=== PATIENT | female | born 1950 | race Caucasian/White ===

== ENCOUNTER 2020-01-02 21:24 | Emergency (ER) | payer MEDICARE, OTHER, SELFPAY ==
[2020-01-02 21:31] VITALS: BP 149/104; PULSE 102; RESP 18; TEMP 36; O2SAT 97
[2020-01-02 21:36] VITALS: PULSE 105
--- NOTE | 2020-01-02 21:40 | ECG_ITS ---
Measurements Intervals [place] Rate: 101 P: 63 LA: 184 QRS: 23 QRSD: 77 T: 20 QT: 321 QTc: 416 Interpretive Statements SINUS TACHYCARDIA LOW QRS VOLTAGE IN PRECORDIAL LEADS BASELINE ARTIFACT- I, III, AVL BORDERLINE ECG Electronically Signed On 01-03-2020 6:54:52 CDT by Dieter Hernández D.O.
[2020-01-02 21:48] LABS: Basophils Percent Auto 0.3 % (0.2-1.2); Eosinophils Absolute Auto 0.2 K/mm3 (0-0.3); Eosinophils Percent Auto 1.4 % (0-4.4); Hematocrit 41.7 % (37.0-47.0); Hemoglobin 14.2 g/dL (12.0-15.0); Immature Granulocyte Absolute 0.04 K/mm3 (0.00-0.031); Immature Granulocyte Percent A 0.4 % (0-0.5); Lymphocytes Absolute Auto 3.07 K/mm3 (0.9-3.2); Lymphocytes Percent Auto 29.4 % (18.3-44.2); Mean Corpuscular HGB Conc 34.1 g/dl (32-36); Mean Corpuscular Hemoglobin 28.1 pg (26-34); Mean Corpuscular Volume 82.6 fl (80-100); Mean Platelet Volume 8.9 fl (7.4-10.4); Monocytes Absolute Auto 1.2 K/mm3 (0.1-0.6); Monocytes Percent Auto 11.5 % (2.6-8.5); Platelet Count Result 460 k/mm3 (150-375); Red Blood Count 5.05 M/mm3 (4.2-5.4); Red Cell Distribution Width 14.1 % (11.5-14.5); White Blood Count 10.4 K/mm3 (4.5-10.0)
[2020-01-02 22:00] LABS: Add Urine Microscopic? YES; Appearance Urine Cloudy (Clear); Bacteria Urine 2+ /hpf; Bilirubin Urine Negative (Negative); Blood Urine Negative (Negative); Color Urine Yellow (Yellow); Glucose Urine UA Negative (Negative); Ketones Urine Negative (Negative); Leukocyte Esterase Ur 2+ LEU/UL (Negative); Mucus Urine Moderate /lpf; Nitrate Urine Negative (Negative); Protein Urine Negative (Negative); Specific Grav Ur 1.021 (1.001-1.035); Squamous Epithelial Cell Urine Many /hpf (Few); Urobilinogen Urine Negative mg/dL (<2.0); WBC Urine 31-50 /hpf
[2020-01-02 22:00] LABS: Alanine Aminotransferase 20 U/L (4-35); Albumin Level 4.1 g/dL (3.5-5.1); Alkaline Phosphatase 84 U/L (38-126); Anion Gap 11 mmol/L (8-16); Aspartate Amino Transferase 25 U/L (14-36); Bilirubin,Total 0.4 mg/dL (0.2-1.3); Blood Urea Nitrogen 11 mg/dL (7-17); Carbon Dioxide 27 mmol/L (22-30); Chloride 89 mmol/L (98-107); Estimated Glomerular Filt Rate > 60; Glucose 129 mg/dL (65-105); Potassium 4.3 mmol/L (3.4-5.0); Sodium 127 mmol/L (137-145)
[2020-01-02] MEDS: SODIUM CHLORIDE 0.9% IV 1,000 ML 999 ML IV CONT (22:18)
[2020-01-02 22:46] VITALS: BP 140/88; PULSE 97; RESP 20; O2SAT 98
--- NOTE | 2020-01-02 22:58 | ED.GENADULT ---
HPI - General Adult General Chief complaint: Unspecified Stated complaint: agitation, possible uti Time Seen by Provider: 01/02/20 21:35 History of Present Illness HPI narrative: Patient is a 6-year-old female who presents the ER with some agitation. reports patient has been more irritable over the last few days and has been drinking more water and peeing much more frequently. Referred here by PCP to evaluate for electrolyte disturbance and UTI. Patient is oriented x3 but is slow to answer some of the questions. She has no complaints of fevers or chills or sweats. She has not fallen or injured herself. Related Data Home Medications Medication Instructions Recorded Confirmed alprazolam 1 mg tablet 1 mg PO BID 10/21/19 aspirin 81 mg tablet,delayed 81 mg PO DAILY 10/21/19 release buspirone 10 mg tablet 10 mg PO TID 10/21/19 calcium carbonate 500 mg calcium 500 mg PO DAILY 10/21/19 (1,250 mg) tablet cholecalciferol (vitamin D3) 25 25 mcg PO DAILY 10/21/19 mcg (1,000 unit) capsule desvenlafaxine succinate 50 mg 50 mg PO DAILY 10/21/19 tablet,extended release 24 hr zzkrbzwu-gzwqduq-cgpq-lutein mcg PO 10/21/19 Allergies Allergy/AdvReac Type Severity Reaction Status Date / Time adhesive Allergy Unknown Rash Verified 01/02/20 21:35 morphine Allergy Unknown Swelling Verified 01/02/20 21:35 procaine Allergy Unknown Agitated Verified 01/02/20 21:35 PROCAINE HCL Allergy Unknown Agitated Uncoded 01/02/20 21:35 Review of Systems Review of Systems: All systems reviewed & are unremarkable except as noted in HPI and below Constitutional: Constitutional: Denies chills, Denies fever(s) and Denies weakness ENT: Denies nasal congestion and Denies sore throat Gastrointestinal: Gastrointestinal: Denies abdominal pain, Denies nausea and Denies vomiting Genitourinary: Genitourinary: Reports nocturia, Denies dysuria and Denies flank pain PMFSH Past Medical History Medical History (Updated 01/03/20 @ 00:21 by Gene Toussaint MD) Essential (primary) hypertension Gastro-esophageal reflux disease without esophagitis Generalized anxiety disorder Hyperlipidemia Hyponatremia Major depressive disorder, single episode, unspecified Post-polio syndrome Surgical History Surgical History (Updated 01/02/20 @ 23:10 by Gene Toussaint MD) History of hip surgery Family History Family History (Updated 11/23/15 @ 23:19 by DOCTOR UNKNOWN) Father Hypertension Family history of diabetes mellitus in first degree relative Family history of lung cancer Mother Family history of thyroid disease Social History Social History Smoking status: Former smoker Smoking end date: 04/27/03 Alcohol intake: never Exam Narrative: Exam Narrative: GENERAL: Well-appearing, well-nourished, and in no acute distress. HEAD: Normocephalic, atraumatic. CHEST: Clear to auscultation. No respiratory distress. HEART: Regular rate and rhythm. Normal peripheral pulses. ABDOMEN: Soft, nontender, nondistended. EXTREMITIES: Normal range of motion. No edema. SKIN: Warm, dry, no rash. NEURO: Alert and oriented x3. Course Course Emergency Course: Patient and spouse informed of results. Both are comfortable with discharge home. Patient has been hydrated and received ceftriaxone IV. Vital Signs Vital signs: Vital Signs Temperature 96.8 F L 01/02/20 21:31 Pulse Rate 102 H 01/02/20 21:31 Respiratory Rate 18 01/02/20 21:31 Blood Pressure 149/104 H 01/02/20 21:31 Pulse Oximetry 97 01/02/20 21:31 Temperature 96.8 F L 01/02/20 21:31 Pulse Rate 104 H 01/02/20 23:47 Respiratory Rate 18 01/02/20 23:47 Blood Pressure 136/95 H 01/03/20 00:17 Pulse Oximetry 94 01/02/20 23:47 Medical Decision Making Vital Signs Vital Signs: Vital Signs Temperature 96.8 F L 01/02/20 21:31 Pulse Rate 102 H 01/02/20 21:31 Respiratory Rate 18 01/02/20 21:31 Blood Pressure 149/104 H 01/02/20 21:31
--- NOTE | 2020-01-02 23:30 | PC.NURSE ---
rn report given to sanjay
[2020-01-02 23:47] VITALS: BP 181/97; PULSE 104; RESP 18; O2SAT 94
--- NOTE | 2020-01-02 23:47 | PC.NURSE ---
report received at this time. pt sitting on stretcher with at bedside. pt denies any needs/concerns. pt remains hooked up to monitor, will continue to monitor pt for baseline status changes.
[2020-01-03 00:17] VITALS: BP 136/95
== END 2020-01-03 00:47 | disposition home or self-care (01) ==
PROVIDERS: Emergency Provider Emergency Medicine; PCP Family Medicine
DX: N39.0 Urinary tract infection, site not specified (principal); I10 Essential (primary) hypertension; K21.9 Gastro-esophageal reflux disease without esophagitis; F41.9 Anxiety disorder, unspecified; E78.5 Hyperlipidemia, unspecified
CPT/HCPCS: 36415; 80053; 81001; 85025; 87086; 87088; 93005; 96361; 96365; 99284; J0696; J7030

== ENCOUNTER 2020-01-07 19:16 | Inpatient (IN) | payer MEDICARE, OTHER, SELFPAY ==
--- NOTE | ~2020-01-07 | MR_ITS ---
EXAMINATION: MR abdomen wo con DATE: 01/10/2020 12:16 INDICATION: Renal masses on prior CT TECHNIQUE: Magnetic resonance imaging (MRI) of the abdomen was performed without intravenous contrast . Sequences included coronal T2-weighted SS-FSE, coronal and axial FS 2D-FIESTA, axial STIR FSE, axi al T2-weighted SS-FSE, axial T2-weighted FS SS-FSE, axial diffusion-weighted SE, axial dual-echo T1-w eighted FSPGR, and axial and coronal T1-weighted LAVA. Postcontrast axial T1-weighted LAVA images wer e obtained in a time course. Postcontrast coronal T1-weighted LAVA images were obtained. COMPARISON: CT dated 01/07/2020 FINDINGS: Arch size is normal. No pericardial or pleural effusion. Partially visualized ascending thoracic aort ic aneurysm which measures up to 4.2 cm in maximal diameter. Large hiatal hernia containing the major ity of the stomach as well as the body and tail of the pancreas. Liver, gallbladder, spleen, pancreas and bilateral adrenal glands are normal. There is a 1.9 cm T2 hyperintense lesion at the lower pole of the left kidney corresponding to the le abram of concern on prior CT. Lesion appears relatively homogeneous suggesting fluid with a subtle thi n linear internal septation evident on the coronal images. No evident solid soft tissue component eugenie reciated. There is subtle 4 mm diameter ring of decreased signal intensity at the upper pole of the r ight kidney which appears associated with a small region of cortical scarring and corresponding to th e rim calcified lesion on prior CT. No discernible enhancement associated with the lesion on the subs equent pre and postcontrast CT. There is an additional 1.4 cm lesion with equivocal enhancement on th e subsequent pre and postcontrast CT at the interpolar region of the right kidney which is nearly ind iscernible on the MRI images, evident only has subtle region of restricted diffusion. There are few a dditional subcentimeter homogeneous T2 hyperintense cysts in the bilateral kidneys. A portion of the transverse colon extends into a small supraumbilical ventral hernia. No dilation of the more proximal bowel to suggest obstruction. A few scattered colonic diverticula without adjacent inflammatory change to suggest diverticulitis. No pathologically enlarged abdominal lymphadenopathy. Severe lumbar spondylosis. IMPRESSION: 1. 1.9 cm T2 hyperintense lesion at the lower pole of the left kidney with thin internal septation co nsistent with a Bosni[place] 2 renal cyst. 2. Indeterminate 1.2 cm peripherally calcified lesion at the upper pole of the right kidney evaluatio n of which is mixed both by the relatively small size of the lesion as well as the absence of intrave nous contrast. On the pre and postcontrast CT performed immediately following the MRI the lesion demo nstrates relatively low-attenuation unclear whether fluid or potentially fat with no evident internal enhancement which favors a benign lesion either periphery calcified cyst or heterotopic ossification likely related to the associated scarring which could be sequela of prior infection or infarction. 3. Nearly indiscernible 1.4 cm lesion at the interpolar region of the right kidney that are evident w ith equivocal enhancement on subsequent pre and postcontrast CT which remains indeterminate for compl ex cyst versus enhancing solid neoplasm. 4. Large sliding-type hiatal hernia containing nearly the entire stomach as well as the body and tail of the pancreas. 5. Segment of nonobstructed transverse colon extending to a small supraumbilical ventral hernia. 6. Diverticulosis. Reviewed, dictated and finalized at location A. IMPRESSION: 1. 1.9 cm T2 hyperintense lesion at the lower pole of the left kidney with thin internal septation consistent with a [place]
--- NOTE | ~2020-01-07 | XR_ITS ---
XR chest 2V 01/07/2020 21:46 Indication: Cough and shortness of breath Procedure: AP and lateral views of the chest Comparison: Comparison to multiple prior studies sequentially, with oldest reviewed study dated 10/18. Findings: There is a hiatal hernia. Cardiomegaly. No focal air space disease, pulmonary edema, pleura l effusion or suspected pneumothorax. Bibasilar atelectasis. Impression: 1: No acute cardiopulmonary disease. 2: Large hiatal hernia. Reviewed, dictated and finalized at location A. Impression: 1: No acute cardiopulmonary disease. 2: Large hiatal hernia.
--- NOTE | ~2020-01-07 | CT_ITS ---
EXAMINATION: CT abdomen pelvis wo/w con DATE: 01/10/2020 12:27 INDICATION: Bilateral renal masses TECHNIQUE: Computed tomography (CT) of the abdomen and pelvis was performed without and with 100 mL O mnipaque-350 intravenous contrast. Automated exposure control and iterative reconstruction technique were employed. The dose-length product was 2430.64 mGy-cm. COMPARISON: CT dated 01/07/2020 and MRI dated 01/10/2020 FINDINGS: Atelectasis/scarring at the lung bases. Heart size is normal. No pericardial effusion. Large sliding- type hiatal hernia containing the entire stomach as well as the body and tail of the otherwise normal pancreas. Gallbladder, liver, spleen and bilateral adrenal glands are normal. Short segment of nonob structed transverse colon extends into a small supraumbilical ventral hernia. Moderate scattered colo shay diverticulosis with sigmoid predominance without adjacent inflammatory change to suggest divertic ulitis. Bladder is normal. The uterus is not identified and has likely been surgically resected. Unch anged 1.5 cm left adnexal cyst. Right adnexa is unremarkable. No free intraperitoneal gas or fluid. N o pathologically enlarged abdominal or pelvic lymphadenopathy. Severe lumbar spondylosis. Bipolar typ e left hip hemiarthroplasty. Chronic defect along the anterolateral left iliac wing. Prominent asymme tric fatty atrophy of the musculature at the left hemipelvis and proximal thigh. Chronic T7 compressi on fracture with no edema on the prior MRI to suggest acute injury. Previously noted 2.1 cm exophytic lesion at the lower pole of the left kidney demonstrates slightly g reater than simple fluid attenuation with no definitive enhancement on postcontrast images consistent with a complex proteinaceous/hemorrhagic cyst. 1.2 cm peripherally calcified lesion at the upper kathleen e of the right kidney which demonstrates central relatively low attenuation with no discernible inter nal enhancement which could represent either a rim calcified cyst or heterotopic ossicle. 1.4 cm lesi on at the interpolar region of the right kidney with noncontrast attenuation of 45 and postcontrast a ttenuation of 61 which is equivocal for enhancement and remains indeterminate for proteinaceous/hemor rhagic cyst versus solid enhancing neoplasm. The lesion is nearly indiscernible on MRI which similarl y does not distinguish between complex cyst or solid neoplasm. There are couple additional subcentime ter hypodense likely cyst in the left kidney which remain too small to definitively characterize. IMPRESSION: 1. Both the previously noted renal lesions are without discernible enhancement consistent with a 2.1 cm proteinaceous/hemorrhagic cyst at the lower pole of the left kidney and partially calcified cyst v ersus heterotopic ossicle related to chronic scarring at the upper pole of the right kidney. 2. 1.4 cm lesion at the interpolar region of the right kidney which is equivocal for determination of enhancement and which remains indeterminate for proteinaceous/hemorrhagic cyst versus solid neoplasm such as renal cell carcinoma. Assessment is still limited by the small size of the lesion. 3. Nonobstructed segment of transverse colon extends into a small supraumbilical ventral hernia. 4. Large sliding-type hiatal hernia containing essentially the entire stomach as well as the body and tail of the pancreas. 5. Moderate diverticulosis. Reviewed, dictated and finalized at location A. IMPRESSION: 1. Both the previously noted renal lesions are without discernible enhancement consistent with a 2.1 cm proteinaceous/hemorrhagic cyst at the lower pole of th e left kidney and partially calcified cyst versus heterotopic ossicle related t o chronic scarring at the upper pole of the right kidney. 2. 1.4 cm lesion
--- NOTE | ~2020-01-07 | CT_ITS ---
EXAMINATION: CT brain wo con DATE: 01/07/2020 21:12 INDICATION: Confusion. TECHNIQUE: Computed tomography (CT) of the head was performed without intravenous contrast. The mA wa s adjusted according to patient size. Iterative reconstruction technique was employed. The dose-lengt h product was 605.33 mGy-cm. COMPARISON: Head CT 07/27/2009 FINDINGS: There are scattered areas of low attenuation in the cerebral white matter, which is within normal limits for the patient's age. There is no intracranial hemorrhage, acute infarction, or abnorm al intracranial mass lesion. The ventricles are normal in size. The orbits are normal. The paranasal sinuses are clear. The orbits are normal. The mastoid air cells are normal. IMPRESSION: 1. Normal aging brain. Reviewed, dictated and finalized at location A. IMPRESSION: 1. Normal aging brain.
--- NOTE | ~2020-01-07 | CT_ITS ---
EXAMINATION: CT abdomen pelvis wo con DATE: 01/07/2020 21:11 INDICATION: Abdominal distention. Confusion. TECHNIQUE: Computed tomography (CT) of the abdomen and pelvis was performed without intravenous contr ast. Automated exposure control and iterative reconstruction technique were employed. The dose-length product was 1434.30 mGy-cm. COMPARISON: CT abdomen and pelvis 04/01/2011, chest 2 views 12/28/2014 FINDINGS: The visualized portions of the lung bases demonstrate mild atelectasis. There is a large sl iding hiatal hernia containing pancreas and the majority of the stomach. The liver, gallbladder, sple en, and adrenal glands are normal. There is an 11 mm peripherally calcified mass in right kidney. The re is a 1.6 cm mass in left kidney measuring soft tissue attenuation. There is diverticulosis of the colon without evidence of diverticulitis. There is a supraumbilical ventral hernia containing nonobst ructed transverse colon. There are no dilated loops of bowel. The appendix is not visualized. There a re no pathologically enlarged lymph nodes. There is no free intraperitoneal fluid. There is old fract ure deformity of left ilium. There is a left hip arthroplasty. There is severe fatty atrophy of most of the left pelvic and proximal left thigh musculature. There is severe thoracic and lumbar spondylos is. There is a compression fracture of T7 with 3/5 loss of height. IMPRESSION: 1. Supraumbilical ventral hernia containing nonobstructed transverse colon. 2. Age-indeterminate T7 compression fracture. 3. Bilateral kidney masses, which may be benign or less likely malignant. Abdomen CT without and with contrast is recommended. 4. Large sliding hiatal hernia. Reviewed, dictated and finalized at location A. IMPRESSION: 1. Supraumbilical ventral hernia containing nonobstructed transverse colon. 2. Age-indeterminate T7 compression fracture. 3. Bilateral kidney masses, which may be benign or less likely malignant. Abdom en CT without and with contrast is recommended. 4. Large sliding hiatal hernia.
[2020-01-07 19:19] VITALS: BP 143/116; PULSE 110; RESP 22; TEMP 36.6; O2SAT 98
[2020-01-07 20:35] LABS: Add Urine Microscopic? YES; Appearance Urine Clear (Clear); Bacteria Urine Trace /hpf; Bilirubin Urine Negative (Negative); Blood Urine Negative (Negative); Color Urine Yellow (Yellow); Glucose Urine UA Negative (Negative); Ketones Urine Negative (Negative); Leukocyte Esterase Ur Negative LEU/UL (Negative); Mucus Urine Rare /lpf; Nitrate Urine Negative (Negative); Protein Urine Negative (Negative); RBC Urine 0-2 /hpf (0-2); Specific Grav Ur 1.017 (1.001-1.035); Squamous Epithelial Cell Urine Occasional /hpf (Few); Urobilinogen Urine Negative mg/dL (<2.0); WBC Urine 0-3 /hpf
[2020-01-07] MEDS: LACTATED RINGERS 1,000 ML 150 ML IV CONT (20:40)
[2020-01-07 20:44] LABS: Basophils Absolute Auto 0.1 K/mm3 (0.0-0.1); Basophils Percent Auto 0.4 % (0.2-1.2); Eosinophils Absolute Auto 0.1 K/mm3 (0-0.3); Eosinophils Percent Auto 0.7 % (0-4.4); Hematocrit 40.1 % (37.0-47.0); Hemoglobin 13.6 g/dL (12.0-15.0); Immature Granulocyte Absolute 0.03 K/mm3 (0.00-0.031); Immature Granulocyte Percent A 0.2 % (0-0.5); Lymphocytes Absolute Auto 2.03 K/mm3 (0.9-3.2); Lymphocytes Percent Auto 15.5 % (18.3-44.2); Mean Corpuscular HGB Conc 33.9 g/dl (32-36); Mean Corpuscular Hemoglobin 27.7 pg (26-34); Mean Corpuscular Volume 81.7 fl (80-100); Mean Platelet Volume 8.7 fl (7.4-10.4); Monocytes Absolute Auto 1.4 K/mm3 (0.1-0.6); Neutrophils Absolute Auto 9.4 K/mm3 (1.3-6.7); Neutrophils Percent Auto 72.2 % (45.5-73.1); Platelet Count Result 459 k/mm3 (150-375); Red Blood Count 4.91 M/mm3 (4.2-5.4); Red Cell Distribution Width 13.7 % (11.5-14.5); White Blood Count 13.1 K/mm3 (4.5-10.0)
[2020-01-07 20:57] LABS: Alanine Aminotransferase 19 U/L (4-35); Albumin Level 3.9 g/dL (3.5-5.1); Alkaline Phosphatase 84 U/L (38-126); Anion Gap 9 mmol/L (8-16); Aspartate Amino Transferase 24 U/L (14-36); Bilirubin,Total 0.3 mg/dL (0.2-1.3); Blood Urea Nitrogen 12 mg/dL (7-17); Calcium 8.8 mg/dL (8.4-10.2); Carbon Dioxide 26 mmol/L (22-30); Chloride 89 mmol/L (98-107); Estimated Glomerular Filt Rate > 60; Glucose 127 mg/dL (65-105); Potassium 4.7 mmol/L (3.4-5.0); Sodium 124 mmol/L (137-145)
--- NOTE | 2020-01-07 20:57 | PC.NURSE ---
Patient being taken to CT.
--- NOTE | 2020-01-07 21:24 | ED.AMS ---
HPI - Altered Mental Status General Chief Complaint: Urogenital-Female Stated Complaint: worsening UTI symptoms Time Seen by Provider: 01/07/20 20:00 Source: patient and family Limitations: altered mental status and clinical condition History of Present Illness HPI narrative: 69-year-old female Seen here several days ago diagnosed with a UTI and treated with Keflex Urine culture ultimately grew skin and vaginal kelley and was listed as contaminated states that the patient has not wanted to eat very much, limited to soup 2 cans of Ensure and some spaghetti and meatballs for lunch and dinner today And additionally that she seems confused and resistant to doing things such as eating or lying down The patient herself complains only of feeling thirsty She is aware of where she is the month and the date but does not seem to have insight into why she might be here She is asking for drinks of water notes that she was admitted at [facility] with fairly severe hyponatremia, he remembers a level is being 19 complaint: altered mental status and confusion Onset (ago): day(s) Timing confirmed by: spouse Severity: mild Consistency of symptoms: getting Worse Context: other (Recent illness) Related Data Home Medications Medication Instructions Recorded Confirmed alprazolam 1 mg tablet 1 mg PO BID 10/21/19 aspirin 81 mg tablet,delayed 81 mg PO DAILY 10/21/19 release buspirone 10 mg tablet 10 mg PO TID 10/21/19 calcium carbonate 500 mg calcium 500 mg PO DAILY 10/21/19 (1,250 mg) tablet cholecalciferol (vitamin D3) 25 25 mcg PO DAILY 10/21/19 mcg (1,000 unit) capsule desvenlafaxine succinate 50 mg 50 mg PO DAILY 10/21/19 tablet,extended release 24 hr jvpjvjqs-jieaeva-gfyp-lutein mcg PO 10/21/19 Allergies Allergy/AdvReac Type Severity Reaction Status Date / Time adhesive Allergy Unknown Rash Verified 01/07/20 19:29 morphine Allergy Unknown Swelling Verified 01/07/20 19:29 procaine Allergy Unknown Agitated Verified 01/07/20 19:29 PROCAINE HCL Allergy Unknown Agitated Uncoded 01/02/20 21:35 Review of Systems Review of Systems: All systems reviewed & are unremarkable except as noted in HPI and below ROS unobtainable: Yes unobtainable due to mental status (Very difficult historian) Constitutional: Constitutional: Reports fatigue, Denies fever(s), Denies headache(s) and Denies night sweats Eyes: Eyes: Denies loss of vision and Denies other visual disturbances ENT: Denies headache(s) and Denies hoarseness Cardiovascular: Cardiovascular: Denies chest pain, Denies leg edema, Denies palpitations and Denies dyspnea Respiratory: Respiratory: Denies cough, Denies dyspnea and Denies wheezing Gastrointestinal: Gastrointestinal: Denies diarrhea and Denies vomiting Genitourinary: Genitourinary: Denies urinary frequency and Reports nocturia Musculoskeletal: Musculoskeletal: Denies abnormal gait, Denies deformity, Denies joint swelling, Denies muscle weakness and Denies numbness Integumentary/Breasts: Skin/Breast: Denies rash, Denies unusual bruising and Denies wounds Neurologic: Denies abnormal gait, Reports confusion, Denies headache(s), Denies focal weakness, Denies loss of vision, Denies numbness and Reports weakness Psychiatric: Psychiatric: Reports no additional psychiatric complaints Endocrine: Endocrine: Denies palpitations Allergic/Immunologic: Allergic/Immunologic: Denies wheezing PMF Past Medical History Medical History (Updated 01/07/20 @ 22:35 by Tanvir Aragon MD) Essential (primary) hypertension Gastro-esophageal reflux disease without esophagitis Generalized anxiety disorder Hyperlipidemia Hyponatremia Major depressive disorder, single episode, unspecified Post-polio syndrome Surgical History Surgical History (Updated 01/02/20 @ 23:10 by Gene Toussaint MD) History of hip surgery Family History Family History (Updated 11/23/15 @ 23:19 by
[2020-01-07 21:51] VITALS: BP 152/97; PULSE 104; RESP 19; O2SAT 95
[2020-01-07 23:00] VITALS: BP 157/97; PULSE 102; RESP 20; O2SAT 96
[2020-01-07 23:51] VITALS: BP 151/83; PULSE 107; RESP 22; TEMP 36.6; O2SAT 96
--- NOTE | 2020-01-08 | ADMGEN ---
This patient, Kim Samayoa, was admitted to Medical Room 347-. Patient/family oriented to hospital policies and general routines including ID bracelet, bed and alarms, visiting hours, pain management, procedures, bathroom and other care routines, personal items, smoking policy, room service/diet, and visiting hours. Valuables list has been completed. Information on how to activate the Rapid Response Team has been discussed. Patient/Family are encouraged to report perceived risks to care and to ask questions if they do not understand what they are told or what they should do.
[2020-01-08] MEDS: SODIUM CHLORIDE 0.9% IV 1,000 ML 125 ML IV CONT ×2 (00:14→07:51)
[2020-01-08 00:17] VITALS: BMI 39.0
[2020-01-08 02:00] VITALS: BP 132/87; PULSE 105; RESP 20; TEMP 36.9; O2SAT 98
[2020-01-08 06:44] LABS: Anion Gap 10 mmol/L (8-16); Blood Urea Nitrogen 7 mg/dL (7-17); Calcium 8.5 mg/dL (8.4-10.2); Carbon Dioxide 22 mmol/L (22-30); Chloride 90 mmol/L (98-107); Estimated CRCL calculation 124 ml/min; Estimated Glomerular Filt Rate > 60; Glucose 100 mg/dL (65-105); Potassium 4.5 mmol/L (3.4-5.0); Sodium 122 mmol/L (137-145)
[2020-01-08 07:53] VITALS: BP 152/88; PULSE 110; RESP 20; TEMP 36.3; O2SAT 92
[2020-01-08 08:29] LABS: Basophils Percent Auto 0.3 % (0.2-1.2); Eosinophils Percent Auto 0.1 % (0-4.4); Hematocrit 40.3 % (37.0-47.0); Hemoglobin 13.8 g/dL (12.0-15.0); Immature Granulocyte Absolute 0.11 K/mm3 (0.00-0.031); Immature Granulocyte Percent A 1.1 % (0-0.5); Lymphocytes Absolute Auto 1.87 K/mm3 (0.9-3.2); Lymphocytes Percent Auto 19.4 % (18.3-44.2); Mean Corpuscular HGB Conc 34.2 g/dl (32-36); Mean Corpuscular Hemoglobin 27.5 pg (26-34); Mean Corpuscular Volume 80.4 fl (80-100); Mean Platelet Volume 8.7 fl (7.4-10.4); Monocytes Absolute Auto 0.9 K/mm3 (0.1-0.6); Monocytes Percent Auto 9.5 % (2.6-8.5); Neutrophils Absolute Auto 6.7 K/mm3 (1.3-6.7); Neutrophils Percent Auto 69.6 % (45.5-73.1); Platelet Count Result 460 k/mm3 (150-375); Red Blood Count 5.01 M/mm3 (4.2-5.4); Red Cell Distribution Width 13.4 % (11.5-14.5); White Blood Count 9.6 K/mm3 (4.5-10.0)
[2020-01-08] MEDS: CALCIUM CARBONATE (OSCAL) 500 MG TABLET PO (08:38)
[2020-01-08] MEDS: busPIRone HCL 10 MG TABLET PO ×2 (08:38→12:30)
[2020-01-08] MEDS: CHOLECALCIFEROL 1,000 UNITS TABLET 1000 UNITS PO (08:38)
[2020-01-08] MEDS: lisinopriL 20 MG TABLET PO (08:38)
[2020-01-08] MEDS: ASPIRIN 81 MG ENTERIC TABLET PO (08:38)
[2020-01-08] MEDS: PANTOPRAZOLE 40 MG TABLET PO ×2 (08:39→20:32)
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
[2020-01-08 10:21] LABS: Creatinine Urine 67.6 mg/dL
--- NOTE | 2020-01-08 10:38 | PHAR ---
Home Med Verified: Desvenlafaxine ER 50mg Take 1 tab PO Daily
[2020-01-08 10:57] LABS: Sodium Urine Random 149 meq/L
[2020-01-08 12:27] LABS: Sodium 123 mmol/L (137-145)
[2020-01-08 14:00] VITALS: BP 142/78; PULSE 70; RESP 18; TEMP 36.7; O2SAT 95
[2020-01-08] MEDS: ALPRAZolam 0.5 MG TABLET PO ×2 (14:14→22:44)
--- NOTE | 2020-01-08 15:53 | PM.CNNEP ---
Assessment and Plan Assessment and plan (1) Hyponatremia: Code(s): E87.1 - Hypo-osmolality and hyponatremia Status: Acute Assessment and Plan: appears to be acute on chronic scanned labs results note sodium ranging ~ 130 - 134 since late 2014 reported has been hospitalized before with issues relating to hyponatremia suspect due to excessive free water intake recently unclear if desvenlafaxine is a contributing (has been for awhile) (2) Altered mental status: Code(s): R41.82 - Altered mental status, unspecified Status: Acute Assessment and Plan: mentation appears stable at this time follow trend for now (3) Essential (primary) hypertension: Code(s): I10 - Essential (primary) hypertension Status: Chronic Assessment and Plan: reasonable control for now follow trend of hemodynamics (4) Generalized anxiety disorder: Code(s): F41.1 - Generalized anxiety disorder Status: Chronic Assessment and Plan: follows with Psychiatry as an outpatient on buspar > 20 minutes spent in detailed conversation with patient and her at bedside regarding the above issues. I will continue to follow the patient with you and make further recommendations during her hospital stay. Thank you for allowing me to participate in the care of this patient. History of Present Illness Reason for Consult Consult date: 01/08/20 Reason for consult: hyponatremia Chief Complaint Chief complaint: hyponatremia, altered mental status History of Present Illness Narrative: The patient is a 69-year-old female with a past medical history as outlined below who presented to [facility] Emergency room due to altered mental status. Apparently, per review of the records and discussion with the patient's , the patient has been more anxious and agitated/irritable since a police service technician in [place] was shot. Since that time, he has noted her to be having difficulties with focusing on things, doing her normal activities of daily living, and taking care of herself. Furthermore, she has been drinking a significant more water than normal as well. As the symptoms continued to be progressively getting worse, she was brought to the ER for further evaluation Workup and evaluation in the emergency room demonstrated the patient to be quite anxious and not entirely clear why she was even in the emergency room to begin with. She was otherwise hemodynamically stable but routine blood test demonstrated worsening hyponatremia in comparison to previous testing. She is apparently just seen in the emergency room about a week ago where she was diagnosed with a urinary tract infection and her sodium level at that time was 127mmol/L. On admission here to [facility], her sodium was 122mmol/L.She apparently has a history of being hospitalized for hyponatremia in the past although I am unclear if her presenting symptom was altered mental status/confusion. She was given IV fluids and subsequent admitted to the hospital for further evaluation and therapy. Renal consultation was requested due to her hyponatremia. From review of her records, the patient has had issues and problems with hyponatremia that they back as far as 2014. Her baseline sodium level seems run anywhere from 130 - 134 since that time. Risk factors for hyponatremia in general include the fact that she is on desvenlafaxine and apparently her excessive fluid intake which I am unclear if is a chronic problem or acute. Her sodium did not improve with IV fluids, this has been discontinued and she has been started on a fluid restriction. Currently, at the time my visit, she does not appear to be in acute distress. Review of Systems Review of Systems: Narrative: As per HPI. [facility] Past Medical History Medical History Essential (primary) hypertension Lynne
[2020-01-08] MEDS: busPIRone HCL 10 MG TABLET 20 MG PO (16:50)
[2020-01-08 18:17] LABS: Sodium 123 mmol/L (137-145)
[2020-01-08] MEDS: ENOXAPARIN 40 MG/0.4 ML SYRINGE SUB-Q (20:32)
[2020-01-08 20:40] VITALS: BP 146/74; PULSE 72; RESP 12; TEMP 36.7; O2SAT 98
[2020-01-09] MEDS: ALPRAZolam 0.5 MG TABLET PO ×3 (05:40→17:30)
[2020-01-09 06:35] LABS: Anion Gap 10 mmol/L (8-16); Blood Urea Nitrogen 8 mg/dL (7-17); Calcium 8.7 mg/dL (8.4-10.2); Carbon Dioxide 23 mmol/L (22-30); Chloride 88 mmol/L (98-107); Estimated CRCL calculation 124 ml/min; Estimated Glomerular Filt Rate > 60; Glucose 110 mg/dL (65-105); Potassium 4.5 mmol/L (3.4-5.0); Sodium 121 mmol/L (137-145)
[2020-01-09] MEDS: busPIRone HCL 10 MG TABLET 20 MG PO ×3 (08:40→17:30)
[2020-01-09] MEDS: lisinopriL 20 MG TABLET PO (08:40)
[2020-01-09] MEDS: CALCIUM CARBONATE (OSCAL) 500 MG TABLET PO (08:40)
[2020-01-09] MEDS: ASPIRIN 81 MG ENTERIC TABLET PO (08:40)
[2020-01-09] MEDS: CHOLECALCIFEROL 1,000 UNITS TABLET 1000 UNITS PO (08:40)
[2020-01-09] MEDS: PANTOPRAZOLE 40 MG TABLET PO ×2 (08:40→20:27)
--- NOTE | 2020-01-09 11:59 | PM.IMPN ---
Progress Note: A&P Assessment and Plan (1) Hyponatremia: Code(s): E87.1 - Hypo-osmolality and hyponatremia Status: Acute Assessment and Plan: The patient has a hx of hyponatremia (baseline 130-134 since 2014) and has been hospitalized in the past at [facility]. Records were requested. Sodium was 127 on 01/01. She is drinking copious amounts of water (possible related to acute stress disorder after finding out about police surgeon being shot ?) recently which likely caused her acute on chronic hyponatremia. Sodium did not improve with IV fluids. IV fluids were discontinued 01/07. Continue 1000cc fluid restriction. Stop heart healthy diet and start regular diet. Nephrology was consulted. Desvenlafaxine is not a new medication and she is not on any other causative agents. TSH and cortisol WNL. Serum and urine protein electrophoresis ordered and pending. Serum immunology pending. CXR with no evidence of mass. Appreciate nephrology input. Sodium is lower today with plans to proceed with 3% normal saline. Continue to monitor closely. (2) Essential (primary) hypertension: Code(s): I10 - Essential (primary) hypertension Status: Chronic Assessment and Plan: Blood pressures were reviewed and are reasonably controlled with mild elevation above target. Continue lisinopril. Continue to monitor. (3) Generalized anxiety disorder: Code(s): F41.1 - Generalized anxiety disorder Status: Chronic Assessment and Plan: Continue alprazolam, buspirone, and desvenlafaxine. She will need to follow-up with her psychologist and psychiatrist after discharge as I believe she may have acute stress disorder after finding out about the [facility] police surgeon being shot. Her states she has been acting strange since she saw this on the news and this was very upsetting to her. (4) Major depressive disorder, single episode, unspecified: Code(s): F32.9 - Major depressive disorder, single episode, unspecified Status: Chronic Assessment and Plan: Continue desvenlafaxine. (5) Gastro-esophageal reflux disease without esophagitis: Code(s): K21.9 - Gastro-esophageal reflux disease without esophagitis Status: Chronic Assessment and Plan: Continue protonix BID. CT abd/pelvis demonstrates large sliding hiatal hernia. (6) Ventral hernia: Code(s): K43.9 - Ventral hernia without obstruction or gangrene Status: Acute Assessment and Plan: Chronic and reducible. No evidence of bowel obstruction. Pt has deferred intervention and is not having any acute issues at this time. Continue to monitor. (7) Bilateral kidney masses: Code(s): N28.89 - Other specified disorders of kidney and ureter Status: Acute Assessment and Plan: Visualized on CT abd/pelvis. Discussed with urology and will order CT abd/pelvis with and without contrast for further characterization. Additional Plan Add melatonin to aid in sleep. Subjective Date/time seen: 01/09/20 11:59 Mrs. Samayoa is a 69 y.o. female with PMH significant for polio at age 2, hypertension, GERD, generalized anxiety disorder, depression, and hyponatremia who is seen in follow-up for hyponatremia. She is not sleeping well overnight. She is very anxious. She would like to take her alprazolam and buspirone closer to bedtime. She denies other complaints including dyspnea, shortness of breath, palpitations, PND, orthopnea, and lower extremity edema. She denies confusion, headaches, nausea, and vomiting. She denies malaise, gait disturbance (other than chronic difficulty given polio and right leg brace). Review of Systems Review of Systems: All systems reviewed & are unremarkable except as noted in HPI and below Exam Narrative: Exam Narrative: General: Anxious, well-developed, obese 69 y.o. female sitting at the chair at the bedside in no acute distress. HEENT: Normocephalic a
[2020-01-09 12:43] LABS: Sodium 120 mmol/L (137-145)
--- NOTE | 2020-01-09 13:21 | P.PNNP_ITS ---
Progress Note: A&P Assessment and Plan (1) Hyponatremia: Code(s): E87.1 - Hypo-osmolality and hyponatremia Status: Acute Assessment and Plan: * appears to be acute on chronic * scanned labs results note sodium ranging ~ 130 - 134 since late 2014 * TSH and cortisol are okay. * CT the abdomen shows no sign of cancer. * No neurologic symptoms or signs. * Chest x-ray is negative in no pulmonary signs. * Etiology of hyponatremia is unclear. * The patient is on an antidepressant which could lead to free water retention. She has been on this for a long time. Perhaps it causes a mild SIADH and recently the patient was drinking more fluid which would drive the sodium Lower. * She is on a fluid restriction now. Her sodium level is not responding. * Will try a small amount of 3% saline. * Discussed at length with the . (2) Altered mental status: Code(s): R41.82 - Altered mental status, unspecified Status: Acute Assessment and Plan: * mentation appears stable at this time * She is anxious but not confused. (3) Essential (primary) hypertension: Code(s): I10 - Essential (primary) hypertension Status: Chronic Assessment and Plan: * reasonable control for now * follow trend of hemodynamics (4) Generalized anxiety disorder: Code(s): F41.1 - Generalized anxiety disorder Status: Chronic Assessment and Plan: * follows with Psychiatry as an outpatient * on buspar Subjective Date/time seen: 01/09/20 13:21 Interval history: Patient is alert. She is anxious. No appetite. Sitting up in a chair. is in the room. She can't sleep at night. She has gained over 50 lb in the last few months. He says that most of this is because she has a brace that does not fit right and so it is hard for her to walk. Review of Systems Cardiovascular: Cardiovascular: Reports no additional cardiovascular complaints Respiratory: Respiratory: Reports no additional respiratory complaints Gastrointestinal: Gastrointestinal: Reports no additional gastrointestinal complaints Genitourinary: Genitourinary: Reports no additional female genitourinary complaints Exam Narrative: Exam Narrative: WDWN in NAD skin no rash head ncat lungs clear cor reg no rub abd BS+ nontender and soft ext no edema. Objective Data Vital Signs Vital Signs: Vital Signs - 24 hr 01/08/20 14:00 01/08/20 20:40 Temperature 36.7 C 36.7 C Pulse Rate 70 72 Respiratory Rate 18 12 Blood Pressure 142/78 H 146/74 H Pulse Oximetry 95 98 Intake/Output Intake/Output: Intake & Output 01/06/20 01/07/20 01/08/20 01/09/20 23:59 23:59 23:59 23:59 Intake Total 400 2479 380 Output Total 100 1650 850 Balance 300 829 -470 Meds/Results Medications: Active Medications Generic Name Dose Route Start Last Admin Trade Name Freq PRN Reason Stop Dose Admin Acetaminophen 650 mg 01/07/20 22:36 Tylenol Tablet PO Q4H PRN Mild Pain (1-3) or Fever Alprazolam 0.5 mg 01/08/20 09:43 01/09/20 12:12 Xanax PO 0.5 mg QID PRN Administration anxiety Aspirin 81 mg 01/08/20 09:00 01/09/20 08:
--- NOTE | 2020-01-09 13:21 | PM.PNNEP ---
Progress Note: A&P Assessment and Plan (1) Hyponatremia: Code(s): E87.1 - Hypo-osmolality and hyponatremia Status: Acute Assessment and Plan: appears to be acute on chronic scanned labs results note sodium ranging ~ 130 - 134 since late 2014 TSH and cortisol are okay. CT the abdomen shows no sign of cancer. No neurologic symptoms or signs. Chest x-ray is negative in no pulmonary signs. Etiology of hyponatremia is unclear. The patient is on an antidepressant which could lead to free water retention. She has been on this for a long time. Perhaps it causes a mild SIADH and recently the patient was drinking more fluid which would drive the sodium Lower. She is on a fluid restriction now. Her sodium level is not responding. Will try a small amount of 3% saline. Discussed at length with the . (2) Altered mental status: Code(s): R41.82 - Altered mental status, unspecified Status: Acute Assessment and Plan: mentation appears stable at this time She is anxious but not confused. (3) Essential (primary) hypertension: Code(s): I10 - Essential (primary) hypertension Status: Chronic Assessment and Plan: reasonable control for now follow trend of hemodynamics (4) Generalized anxiety disorder: Code(s): F41.1 - Generalized anxiety disorder Status: Chronic Assessment and Plan: follows with Psychiatry as an outpatient on [facility] Date/time seen: 01/09/20 13:21 Interval history: Patient is alert. She is anxious. No appetite. Sitting up in a chair. is in the room. She can't sleep at night. She has gained over 50 lb in the last few months. He says that most of this is because she has a brace that does not fit right and so it is hard for her to walk. Review of Systems Cardiovascular: Cardiovascular: Reports no additional cardiovascular complaints Respiratory: Respiratory: Reports no additional respiratory complaints Gastrointestinal: Gastrointestinal: Reports no additional gastrointestinal complaints Genitourinary: Genitourinary: Reports no additional female genitourinary complaints Exam Narrative: Exam Narrative: WDWN in NAD skin no rash head ncat lungs clear cor reg no rub abd BS+ nontender and soft ext no edema. Objective Data Vital Signs Vital Signs: Vital Signs - 24 hr 01/08/20 14:00 01/08/20 20:40 Temperature 36.7 C 36.7 C Pulse Rate 70 72 Respiratory Rate 18 12 Blood Pressure 142/78 H 146/74 H Pulse Oximetry 95 98 Intake/Output Intake/Output: Intake & Output 01/06/20 01/07/20 01/08/20 01/09/20 23:59 23:59 23:59 23:59 Intake Total 400 2479 380 Output Total 100 1650 850 Balance 300 829 -470 Meds/Results Medications: Active Medications Generic Name Dose Route Start Last Admin Trade Name Freq PRN Reason Stop Dose Admin Acetaminophen 650 mg 01/07/20 22:36 Tylenol Tablet PO Q4H PRN Mild Pain (1-3) or Fever Alprazolam 0.5 mg 01/08/20 09:43 01/09/20 12:12 Xanax PO 0.5 mg QID PRN Administration anxiety Aspirin 81 mg 01/08/20 09:00 01/09/20 08:40 Aspirin Ec PO 81 mg DAILY LENA Administration Buspirone HCl 20 mg 01/08/20 17:00 01/09/20 12:12 Buspar PO 20 mg TID LENA Administration Calcium Carbonate 500 mg 01/08/20 09:00 01/09/20 08:40 Oscal 500 Mg PO 500 mg DAILY LENA Administration Enoxaparin Sodium 40 mg 01/08/20 21:00 01/08/20 20:32 Lovenox SUB-Q 40 mg HS LENA Administration Lisinopril 20 mg 01/08/20 09:00 01/09/20 08:40 Prinivil PO 20 mg DAILY LENA Administration Melatonin 5 mg 01/09/20 21:00 Melatonin PO HS LENA Ondansetron HCl 4 mg 01/07/20 22:36 Zofran Inj IV PUSH Q4H PRN Nausea Pantoprazole Sodium 40 mg 01/08/20 09:00 01/09/20 08:40 Protonix PO 40 mg Q12HR LENA Administration Vitamin D 1,000
--- NOTE | 2020-01-09 13:31 | PCDIET ---
Dietitian Consult for Hx of hyponatremia, consuming large amounts of fluids. Spoke with patient and spouse today. See Nutritional Teaching Interventions. thank you for the consult, no further nutritional interventions.
[2020-01-09] MEDS: SODIUM CHLORIDE 3% 400 ML 100 ML IV CONT (14:44)
[2020-01-09 15:12] VITALS: BP 109/75; PULSE 107; RESP 18; TEMP 36; O2SAT 97
[2020-01-09 20:27] LABS: Sodium 127 mmol/L (137-145)
[2020-01-09] MEDS: MELATONIN 5 MG TABLET PO (20:27)
[2020-01-09] MEDS: ENOXAPARIN 40 MG/0.4 ML SYRINGE SUB-Q (20:27)
[2020-01-09 20:52] VITALS: BP 127/71; PULSE 102; RESP 18; TEMP 36.3; O2SAT 95
[2020-01-10 05:48] VITALS: BP 148/88; PULSE 101; RESP 20; TEMP 36.5; O2SAT 95
[2020-01-10] MEDS: ALPRAZolam 0.5 MG TABLET PO ×2 (05:53→18:16)
[2020-01-10 06:31] LABS: Hematocrit 38.7 % (37.0-47.0); Hemoglobin 13.3 g/dL (12.0-15.0); Mean Corpuscular HGB Conc 34.4 g/dl (32-36); Mean Corpuscular Hemoglobin 27.7 pg (26-34); Mean Corpuscular Volume 80.5 fl (80-100); Mean Platelet Volume 8.6 fl (7.4-10.4); Platelet Count Result 419 k/mm3 (150-375); Red Blood Count 4.81 M/mm3 (4.2-5.4); Red Cell Distribution Width 13.2 % (11.5-14.5); White Blood Count 8.3 K/mm3 (4.5-10.0)
[2020-01-10 06:36] LABS: Anion Gap 8 mmol/L (8-16); Blood Urea Nitrogen 8 mg/dL (7-17); Calcium 8.5 mg/dL (8.4-10.2); Carbon Dioxide 24 mmol/L (22-30); Chloride 91 mmol/L (98-107); Estimated CRCL calculation 124 ml/min; Estimated Glomerular Filt Rate > 60; Glucose 104 mg/dL (65-105); Potassium 4.6 mmol/L (3.4-5.0); Sodium 123 mmol/L (137-145)
--- NOTE | 2020-01-10 08:30 | P.PNNP_ITS ---
Progress Note: A&P Assessment and Plan (1) Hyponatremia: Code(s): E87.1 - Hypo-osmolality and hyponatremia Status: Acute Assessment and Plan: * appears to be acute on chronic * scanned labs results note sodium ranging ~ 130 - 134 since late 2014 * TSH and cortisol are okay. * CT the abdomen shows no sign of cancer. * No neurologic symptoms or signs. * Chest x-ray is negative in no pulmonary signs. * Etiology of hyponatremia is unclear. * The patient is on an antidepressant which could lead to free water retention. She has been on this for a long time. Perhaps it causes a mild SIADH and recently the patient was drinking more fluid which would drive the sodium Lower. * She is on a fluid restriction now. Her sodium level is not responding. * Her sodium level dropped in spite of not drinking much fluid. I do not think she is drinking fluid behind the nurses back because she can't really get out of bed to obtain any fluid. Possibly her urine osmolality is very high. This test is still pending. * Will start demeclocycline. * Will check an MRI to look into those kidney masses. * Will Recheck the sodium this afternoon and if still low will give another round of 3%saline. (2) Altered mental status: Code(s): R41.82 - Altered mental status, unspecified Status: Acute Assessment and Plan: * mentation appears normal. (3) Essential (primary) hypertension: Code(s): I10 - Essential (primary) hypertension Status: Chronic Assessment and Plan: * reasonable control for now * follow trend of hemodynamics (4) Generalized anxiety disorder: Code(s): F41.1 - Generalized anxiety disorder Status: Chronic Assessment and Plan: * follows with Psychiatry as an outpatient * on buspar Subjective Date/time seen: 01/10/20 08:30 Interval history: Patient is alert. She is anxious. No appetite. Comfortable in bed. Less anxious today and more interactive. Review of Systems Cardiovascular: Cardiovascular: Reports no additional cardiovascular complaints Respiratory: Respiratory: Reports no additional respiratory complaints Gastrointestinal: Gastrointestinal: Reports no additional gastrointestinal complaints Genitourinary: Genitourinary: Reports no additional female genitourinary complaints Exam Narrative: Exam Narrative: WDWN in NAD skin no rash head ncat lungs clear cor reg no rub abd BS+ nontender and soft ext no edema. Objective Data Vital Signs Vital Signs: Vital Signs - 24 hr 01/09/20 15:12 01/09/20 20:52 01/10/20 05:48 Temperature 36.0 C L 36.3 C L 36.5 C Pulse Rate 107 H 102 H 101 H Respiratory Rate 18 18 20 Blood Pressure 109/75 127/71 148/88 H Pulse Oximetry 97 95 95 Intake/Output Intake/Output: Intake & Output 01/07/20 01/08/20 01/09/20 01/10/20 23:59 23:59 23:59 23:59 Intake Total 400 2479 860 205 Output Total 100 1650 1550 625 Balance 300 713 -325 -073 Meds/Results Medications: Active Medications Generic Name Dose Route Start Last Admin Trade Name Freq PRN Reason Stop Dose Admin Acetaminophen 650 mg 01/07/20 22:36 Tylenol Tablet PO Q4H PRN Mild Pain (1-3) or Fever
--- NOTE | 2020-01-10 08:30 | PM.PNNEP ---
Progress Note: A&P Assessment and Plan (1) Hyponatremia: Code(s): E87.1 - Hypo-osmolality and hyponatremia Status: Acute Assessment and Plan: appears to be acute on chronic scanned labs results note sodium ranging ~ 130 - 134 since late 2014 TSH and cortisol are okay. CT the abdomen shows no sign of cancer. No neurologic symptoms or signs. Chest x-ray is negative in no pulmonary signs. Etiology of hyponatremia is unclear. The patient is on an antidepressant which could lead to free water retention. She has been on this for a long time. Perhaps it causes a mild SIADH and recently the patient was drinking more fluid which would drive the sodium Lower. She is on a fluid restriction now. Her sodium level is not responding. Her sodium level dropped in spite of not drinking much fluid. I do not think she is drinking fluid behind the nurses back because she can't really get out of bed to obtain any fluid. Possibly her urine osmolality is very high. This test is still pending. Will start demeclocycline. Will check an MRI to look into those kidney masses. Will Recheck the sodium this afternoon and if still low will give another round of 3%saline. (2) Altered mental status: Code(s): R41.82 - Altered mental status, unspecified Status: Acute Assessment and Plan: mentation appears normal. (3) Essential (primary) hypertension: Code(s): I10 - Essential (primary) hypertension Status: Chronic Assessment and Plan: reasonable control for now follow trend of hemodynamics (4) Generalized anxiety disorder: Code(s): F41.1 - Generalized anxiety disorder Status: Chronic Assessment and Plan: follows with Psychiatry as an outpatient on [facility] Subjective Date/time seen: 01/10/20 08:30 Interval history: Patient is alert. She is anxious. No appetite. Comfortable in bed. Less anxious today and more interactive. Review of Systems Cardiovascular: Cardiovascular: Reports no additional cardiovascular complaints Respiratory: Respiratory: Reports no additional respiratory complaints Gastrointestinal: Gastrointestinal: Reports no additional gastrointestinal complaints Genitourinary: Genitourinary: Reports no additional female genitourinary complaints Exam Narrative: Exam Narrative: WDWN in NAD skin no rash head ncat lungs clear cor reg no rub abd BS+ nontender and soft ext no edema. Objective Data Vital Signs Vital Signs: Vital Signs - 24 hr 01/09/20 15:12 01/09/20 20:52 01/10/20 05:48 Temperature 36.0 C L 36.3 C L 36.5 C Pulse Rate 107 H 102 H 101 H Respiratory Rate 18 18 20 Blood Pressure 109/75 127/71 148/88 H Pulse Oximetry 97 95 95 Intake/Output Intake/Output: Intake & Output 01/07/20 01/08/20 01/09/20 01/10/20 23:59 23:59 23:59 23:59 Intake Total 400 2479 860 205 Output Total 100 1650 1550 625 Balance 300 663 -446 -383 Meds/Results Medications: Active Medications Generic Name Dose Route Start Last Admin Trade Name Freq PRN Reason Stop Dose Admin Acetaminophen 650 mg 01/07/20 22:36 Tylenol Tablet PO Q4H PRN Mild Pain (1-3) or Fever Alprazolam 0.5 mg 01/08/20 09:43 01/10/20 05:53 Xanax PO 0.5 mg QID PRN Administration anxiety Aspirin 81 mg 01/08/20 09:00 01/09/20 08:40 Aspirin Ec PO 81 mg DAILY LENA Administration Buspirone HCl 20 mg 01/08/20 17:00 01/09/20 17:30 Buspar PO 20 mg TID LENA Administration Demeclocycline HCl 150 mg 01/10/20 09:00 Demeclocycline Hcl PO QID LENA Enoxaparin Sodium 40 mg 01/08/20 21:00 01/09/20 20:27 Lovenox SUB-Q 40 mg HS LENA Administration Lisinopril 20 mg 01/08/20 09:00 01/09/20 08:40 Prinivil PO 20 mg DAILY LENA Administration Melatonin 5 mg 01/09/20 21:00 01/09/20 20:27 Melatonin PO 5 mg HS LENA Administration Ondansetron HCl 4
[2020-01-10] MEDS: CHOLECALCIFEROL 1,000 UNITS TABLET 1000 UNITS PO (09:44)
[2020-01-10] MEDS: busPIRone HCL 10 MG TABLET 20 MG PO ×3 (09:44→22:18)
[2020-01-10] MEDS: ASPIRIN 81 MG ENTERIC TABLET PO (09:44)
[2020-01-10] MEDS: lisinopriL 20 MG TABLET PO (09:44)
[2020-01-10] MEDS: DEMECLOCYCLINE HCL 150 MG TABLET PO ×4 (09:45→23:22)
[2020-01-10] MEDS: PANTOPRAZOLE 40 MG TABLET PO ×2 (09:45→22:18)
[2020-01-10 13:41] LABS: Sodium 122 mmol/L (137-145)
[2020-01-10 14:00] VITALS: BP 130/68; PULSE 92; RESP 18; TEMP 36.2; O2SAT 96
[2020-01-10] MEDS: SODIUM CHLORIDE 3% 400 ML 100 ML IV CONT (14:53)
[2020-01-10 18:28] LABS: Sodium 127 mmol/L (137-145)
--- NOTE | 2020-01-10 18:34 | PM.IMPN ---
Progress Note: A&P Assessment and Plan (1) Hyponatremia: Code(s): E87.1 - Hypo-osmolality and hyponatremia Status: Acute Assessment and Plan: The patient has a hx of hyponatremia and has been hospitalized in the past at [facility]. Creatining seems to range 130-134 in the past. Sodium was 127 on 01/01. She has been drinking copious amounts of water recently which likely caused her acute episode of hyponatremia. TSH and Cortisol were in normal range. CxR on arrival was normal without signs of masses. Sodium did not improve with IV fluids. IV fluids were discontinued 01/07. Continue 1000cc fluid restriction started. Nephrology was consulted who gave her IV Saline 3% with improvement of Na to 127 last night, then this morning sodium decreased to 122 again. She was given a second dose of IV Saline 3% with improvement of Na to 127. Repeat sodium Q6hr. Continue to monitor. Desvenlafaxine is not a new medication and she is not on any other causative agents. Appreciate nephrology input. (2) Essential (primary) hypertension: Code(s): I10 - Essential (primary) hypertension Status: Chronic Assessment and Plan: Blood pressures were reviewed and are reasonably controlled with several readings above target which could be secondary to underlying anxiety. Continue lisinopril. Continue to monitor. (3) Generalized anxiety disorder: Code(s): F41.1 - Generalized anxiety disorder Status: Chronic Assessment and Plan: Continue alprazolam, buspirone, and desvenlafaxine. The patient sees Psychiatrist Dr. Mikey Will #[phone] who I will call tomorrow about the patient and her underlying anxiety to see if any adjustments are warranted prior to discharge. Add melatonin to aid in sleep. Patient denies SI or HI. (4) Major depressive disorder, single episode, unspecified: Code(s): F32.9 - Major depressive disorder, single episode, unspecified Status: Chronic Assessment and Plan: Continue desvenlafaxine. (5) Gastro-esophageal reflux disease without esophagitis: Code(s): K21.9 - Gastro-esophageal reflux disease without esophagitis Status: Chronic Assessment and Plan: Continue protonix BID. (6) Ventral hernia: Code(s): K43.9 - Ventral hernia without obstruction or gangrene Status: Acute Assessment and Plan: Chronic and reducible. No evidence of bowel obstruction. Pt has deferred intervention and is not having any acute issues at this time. (7) Bilateral kidney masses: Code(s): N28.89 - Other specified disorders of kidney and ureter Status: Acute Assessment and Plan: Visualized on CT abd/pelvis. MRI and CTA Abd/pelvis showing two cyst and nearly indiscernible 1.4 cm lesion at the interpolar region of the right kidney that are evident with equivocal enhancement on subsequent pre and postcontrast CT which remains indeterminate for complex cyst versus enhancing solid neoplasm. Will have the patient follow up with Urology as an outpatient for further evaluation. understands and agrees with the plan. All questions answered. (8) Hiatal hernia: Code(s): K44.9 - Diaphragmatic hernia without obstruction or gangrene Status: Acute Assessment and Plan: With GERD symptoms. CT abd/pelvis demontrates large sliding hiatal hernia. I discussed with the patients who I recommended should follow up with General Surgery for treatment since it shows the patients entire stomach and partial pancreas is sitting in her large hernia. She is currently asymptomatic but told him of risk of having large hiatial he
[2020-01-10] MEDS: MELATONIN 5 MG TABLET PO (22:19)
[2020-01-10] MEDS: ENOXAPARIN 40 MG/0.4 ML SYRINGE SUB-Q (22:19)
[2020-01-10 23:22] VITALS: BP 141/82; PULSE 90; RESP 16; TEMP 36.7; O2SAT 97
[2020-01-10] MEDS: ALPRAZolam (*CRX) 0.5 MG TABLET PO (23:22)
[2020-01-11 00:35] LABS: Sodium 127 mmol/L (137-145)
[2020-01-11 04:12] VITALS: BP 139/98; PULSE 102; RESP 14; TEMP 36.9; O2SAT 96
[2020-01-11 06:15] LABS: Albumin Level 3.6 g/dL (3.5-5.1); Anion Gap 6 mmol/L (8-16); Blood Urea Nitrogen 9 mg/dL (7-17); Calcium 8.6 mg/dL (8.4-10.2); Carbon Dioxide 25 mmol/L (22-30); Chloride 95 mmol/L (98-107); Estimated CRCL calculation 124 ml/min; Estimated Glomerular Filt Rate > 60; Glucose 100 mg/dL (65-105); Phosphorus 4.2 mg/dL (2.5-4.5); Potassium 4.4 mmol/L (3.4-5.0); Sodium 126 mmol/L (137-145)
[2020-01-11 06:32] LABS: Osmolality, Urine 503 mOsm/kg (50-1200)
[2020-01-11] MEDS: busPIRone HCL 10 MG TABLET 20 MG PO ×2 (08:47→12:23)
[2020-01-11] MEDS: CHOLECALCIFEROL 1,000 UNITS TABLET 1000 UNITS PO (08:47)
[2020-01-11] MEDS: ASPIRIN 81 MG ENTERIC TABLET PO (08:48)
[2020-01-11] MEDS: PANTOPRAZOLE 40 MG TABLET PO (08:48)
[2020-01-11] MEDS: DEMECLOCYCLINE HCL 150 MG TABLET PO ×3 (08:48→17:39)
[2020-01-11] MEDS: lisinopriL 20 MG TABLET PO (08:48)
[2020-01-11] MEDS: ALPRAZolam (*CRX) 0.5 MG TABLET PO ×3 (08:48→17:39)
[2020-01-11 12:41] LABS: Sodium 126 mmol/L (137-145)
[2020-01-11 14:00] VITALS: BP 120/85; PULSE 98; RESP 18; TEMP 35.7; O2SAT 95
--- NOTE | 2020-01-11 16:35 | PM.IMPN ---
Progress Note: A&P Assessment and Plan (1) Hyponatremia: Code(s): E87.1 - Hypo-osmolality and hyponatremia Status: Acute Assessment and Plan: The patient has a hx of hyponatremia and has been hospitalized in the past at [facility]. Creatining seems to range 130-134 in the past. Sodium was 127 on 01/01. She has been drinking copious amounts of water recently which likely caused her acute episode of hyponatremia. TSH and Cortisol were in normal range. CxR on arrival was normal without signs of masses. CT head showed no acute masses or abnormality. Sodium did not improve with IV fluids. IV fluids were discontinued 01/07. Continue 1000cc fluid restriction started. Nephrology was consulted who gave her IV Saline 3% with improvement of Na to 127 last night, then this morning sodium was 126. Nephrology wanted another dose of IV Saline 3% and will continue monitoring overnight. Nephrology also started the patient on Demeclocycline Hcl 150 mg PO QID which is used for low sodium. He states this is something that she will be discharged on and continue monitoring her sodium as an outpatient. Repeat sodium Q6hr. Continue to monitor. Desvenlafaxine is not a new medication and she is not on any other causative agents. Appreciate nephrology input. (2) Essential (primary) hypertension: Code(s): I10 - Essential (primary) hypertension Status: Chronic Assessment and Plan: Blood pressures were reviewed and are reasonably controlled with several readings above target which could be secondary to underlying anxiety. Continue lisinopril. Continue to monitor. (3) Generalized anxiety disorder: Code(s): F41.1 - Generalized anxiety disorder Status: Chronic Assessment and Plan: Continue alprazolam, buspirone, and desvenlafaxine. The patient sees Psychiatrist Dr. Mikey Will #[phone] who I will call tomorrow about the patient and her underlying anxiety to see if any adjustments are warranted prior to discharge. Add melatonin to aid in sleep. Patient denies SI or HI. (4) Major depressive disorder, single episode, unspecified: Code(s): F32.9 - Major depressive disorder, single episode, unspecified Status: Chronic Assessment and Plan: Continue desvenlafaxine. (5) Gastro-esophageal reflux disease without esophagitis: Code(s): K21.9 - Gastro-esophageal reflux disease without esophagitis Status: Chronic Assessment and Plan: Continue protonix BID. (6) Ventral hernia: Code(s): K43.9 - Ventral hernia without obstruction or gangrene Status: Acute Assessment and Plan: Chronic and reducible. No evidence of bowel obstruction. Pt has deferred intervention and is not having any acute issues at this time. (7) Bilateral kidney masses: Code(s): N28.89 - Other specified disorders of kidney and ureter Status: Acute Assessment and Plan: Visualized on CT abd/pelvis. MRI and CTA Abd/pelvis showing two cyst and nearly indiscernible 1.4 cm lesion at the interpolar region of the right kidney that are evident with equivocal enhancement on subsequent pre and postcontrast CT which remains indeterminate for complex cyst versus enhancing solid neoplasm. Will have the patient follow up with Urology as an outpatient for further evaluation. understands and agrees with the plan. All questions answered. (8) Hiatal hernia: Code(s): K44.9 - Diaphragmatic hernia without obstruction or gangrene Status: Acute Assessment and Plan: With GERD symptoms. CT abd/pelvis demontrates large sliding hiatal hernia. I discussed with the
[2020-01-11] MEDS: DIPHENHYDRAMINE 1%/ZINC 0.1% CREAM 30 GM TUBE 1 APPLIC TOPICAL (17:39)
[2020-01-11] MEDS: SODIUM CHLORIDE 3% 500 ML 100 ML IV CONT (17:44)
--- NOTE | 2020-01-11 19:15 | PM.PNNEP ---
Progress Note: A&P Assessment and Plan (1) Hyponatremia: Code(s): E87.1 - Hypo-osmolality and hyponatremia Status: Acute Assessment and Plan: appears to be acute on chronic scanned labs results note sodium ranging ~ 130 - 134 since late 2014 TSH and cortisol are okay. CT the abdomen shows no sign of cancer. No neurologic symptoms or signs. Chest x-ray is negative in no pulmonary signs. MRI of the kidneys show 2 cysts and 1 lesion too small to characterize as a cyst or solid mass. 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 I explained to the that the antidepressants decrease her body's ability to control free water. As long as she does not drink a whole lot of water the sodium level stays relatively reasonable. however if she drinks a lot of fluid for 1 reason or another the sodium can drop. That is probably what happened to make her sodium so low this time. Currently she is on fluid restriction. She is also on demeclocycline to help improve free water excretion. Her sodium level has not improved much since yesterday so I will give her another round of 3% saline. If the sodium is in the 130s then she could probably be be discharged as this is her baseline. I told the that she should continue fluid restriction at home. We will continue to back less I clean for the short term but eventually wean that off. Perhaps a psychiatry is confined some medication that does not cause hyponatremia. In the meantime we will check into the significance of the renal mass that is under fine. (2) Altered mental status: Code(s): R41.82 - Altered mental status, unspecified Status: Acute Assessment and Plan: mentation appears pretty good but she is racked with anxiety. (3) Essential (primary) hypertension: Code(s): I10 - Essential (primary) hypertension Status: Chronic Assessment and Plan: reasonable control for now follow trend of hemodynamics (4) Generalized anxiety disorder: Code(s): F41.1 - Generalized anxiety disorder Status: Chronic Assessment and Plan: follows with Psychiatry as an outpatient on buspar She takes Pristiq which they bring from home. Subjective Date/time seen: 01/11/20 19:15 Interval history: Patient is alert. She is anxious. No appetite. Sitting up in a chair. is in the room. We discussed the case. Review of Systems Cardiovascular: Cardiovascular: Reports no additional cardiovascular complaints Respiratory: Respiratory: Reports no additional respiratory complaints Gastrointestinal: Gastrointestinal: Reports no additional gastrointestinal complaints Genitourinary: Genitourinary: Reports no additional female genitourinary complaints Exam Narrative: Exam Narrative: WDWN in NAD skin no rash head ncat lungs clear cor reg no rub abd BS+ nontender and soft ext no edema. Objective Data Vital Signs Vital Signs: Vital Signs - 24 hr 01/10/20 23:22 01/11/20 04:12 01/11/20 14:00 Temperature 36.7 C 36.9 C 35.7 C L Pulse Rate 90 102 H 98 Respiratory Rate 16 14 18 Blood Pressure 141/82 H 139/98 H 120/85 Pulse Oximetry 97 96 95 Intake/Output Intake/Output: Intake & Output 01/08/20 01/09/20 01/10/20 01/11/20 23:59 23:59 23:59 23:59 Intake Total 2479 860 1415 710 Output Total 1650 1550 1525 200 Balance 829 -690 -110 510 Meds/Results Medications: Active Medications Generic Name Dose Route Start Last Admin Trade Name Freq PRN Reason Stop Dose Admin Acetaminophen 650 mg 01/07/20 22:36 Tylenol Tablet PO Q4H PRN Mild Pain (1-3) or Fever Alprazolam 0.5 mg 01/10/20 21:00 01/11/20 17:39 Xanax PO 0.5 mg QID LENA Administration Aspirin 81 mg 01/08/20 09:00 01/11/20 08:48 Aspirin Ec PO 81 mg D
[2020-01-12] MEDS: DEMECLOCYCLINE HCL 150 MG TABLET PO ×5 (00:17→20:42)
[2020-01-12] MEDS: busPIRone HCL 10 MG TABLET 20 MG PO ×4 (00:18→16:54)
[2020-01-12] MEDS: MELATONIN 5 MG TABLET PO ×2 (00:18→20:43)
[2020-01-12] MEDS: ENOXAPARIN 40 MG/0.4 ML SYRINGE SUB-Q ×2 (00:18→20:43)
[2020-01-12] MEDS: PANTOPRAZOLE 40 MG TABLET PO ×3 (00:18→20:42)
[2020-01-12] MEDS: ALPRAZolam (*CRX) 0.5 MG TABLET PO ×5 (00:18→20:42)
[2020-01-12 00:21] VITALS: BP 143/81; PULSE 95; RESP 18; TEMP 36.7; O2SAT 95
[2020-01-12 00:31] LABS: Sodium 129 mmol/L (137-145)
[2020-01-12 05:28] VITALS: BP 150/78; PULSE 72; RESP 14; TEMP 36.7; O2SAT 93
[2020-01-12 06:24] LABS: Albumin Level 3.6 g/dL (3.5-5.1); Anion Gap 6 mmol/L (8-16); Blood Urea Nitrogen 9 mg/dL (7-17); Calcium 8.7 mg/dL (8.4-10.2); Carbon Dioxide 26 mmol/L (22-30); Chloride 98 mmol/L (98-107); Estimated CRCL calculation 102 ml/min; Estimated Glomerular Filt Rate > 60; Glucose 95 mg/dL (65-105); Phosphorus 4.3 mg/dL (2.5-4.5); Potassium 4.6 mmol/L (3.4-5.0); Sodium 130 mmol/L (137-145)
[2020-01-12 08:24] VITALS: PULSE 74; RESP 14; O2SAT 93
[2020-01-12] MEDS: ASPIRIN 81 MG ENTERIC TABLET PO (08:25)
[2020-01-12] MEDS: lisinopriL 20 MG TABLET PO (08:26)
[2020-01-12] MEDS: CHOLECALCIFEROL 1,000 UNITS TABLET 1000 UNITS PO (08:34)
--- NOTE | 2020-01-12 09:54 | P.PNNP_ITS ---
Progress Note: A&P Assessment and Plan (1) Hyponatremia: Code(s): E87.1 - Hypo-osmolality and hyponatremia Status: Acute Assessment and Plan: * appears to be acute on chronic * scanned labs results note sodium ranging ~ 130 - 134 since late 2014 * TSH and cortisol are okay. * CT the abdomen shows no sign of cancer. * No neurologic symptoms or signs. * Chest x-ray is negative in no pulmonary signs. * MRI of the kidneys show 2 cysts and 1 lesion too small to characterize as a cyst or solid mass. 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 * her sodium level is 130 today. This came up from 129 yesterday afternoon. * We can continue her fluid restriction at about 1200cc per day. Continue demeclocycline at 150 Q 6. * She is being discharged today. She can get a BMP on Thursday and Thursday and see Dr. Ansari on Thursday. * Perhaps a psychiatry is confined some medication that does not cause hyponatremia. In the meantime we will check into the significance of the renal mass that is under fine. (2) Altered mental status: Code(s): R41.82 - Altered mental status, unspecified Status: Acute Assessment and Plan: * mentation appears pretty good but she is racked with anxiety. (3) Essential (primary) hypertension: Code(s): I10 - Essential (primary) hypertension Status: Chronic Assessment and Plan: * reasonable control for now * follow trend of hemodynamics (4) Generalized anxiety disorder: Code(s): F41.1 - Generalized anxiety disorder Status: Chronic Assessment and Plan: * follows with Psychiatry as an outpatient * on buspar * She takes Pristiq which they bring from home. Subjective Date/time seen: 01/12/20 09:54 Interval history: Patient is alert. She is anxious. No appetite. not in the room. She is trying to eat some breakfast. Staff is about to get her into a chair Review of Systems Cardiovascular: Cardiovascular: Reports no additional cardiovascular complaints Respiratory: Respiratory: Reports no additional respiratory complaints Gastrointestinal: Gastrointestinal: Reports no additional gastrointestinal co mplaints Genitourinary: Genitourinary: Reports no additional female genitourinary complaints Exam Narrative: Exam Narrative: well developed well-nourished female anxious but in no distress lungs are clear Heart regular rate and rhythm no rub or gallop Abdomen bowel sounds positive soft Extremities no edema Skin no rash Objective Data Vital Signs Vital Signs: Vital Signs - 24 hr 01/11/20 14:00 01/12/20 00:21 01/12/20 05:28 Temperature 35.7 C L 36.7 C 36.7 C Pulse Rate 98 95 72 Respiratory Rate 18 18 14 Blood Pressure 120/85 143/81 H 150/78 H Pulse Oximetry 95 95 93 Intake/Output Intake/Output: Intake & Output 01/09/20 01/10/20 01/11/20 01/12/20 23:59 23:59 23:59 23:59 Intake Total 860 1415 1450 380 Output Total 1550 1525 1200 100 Balance -690 -110 250 280 Meds/Results Medications: Active Medications Generic Name Dose Route Start Last Admin Trade Name Freq PRN Reason Stop Dose Admin Acetaminophen 650 m
--- NOTE | 2020-01-12 09:54 | PM.PNNEP ---
Progress Note: A&P Assessment and Plan (1) Hyponatremia: Code(s): E87.1 - Hypo-osmolality and hyponatremia Status: Acute Assessment and Plan: appears to be acute on chronic scanned labs results note sodium ranging ~ 130 - 134 since late 2014 TSH and cortisol are okay. CT the abdomen shows no sign of cancer. No neurologic symptoms or signs. Chest x-ray is negative in no pulmonary signs. MRI of the kidneys show 2 cysts and 1 lesion too small to characterize as a cyst or solid mass. 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 her sodium level is 130 today. This came up from 129 yesterday afternoon. We can continue her fluid restriction at about 1200cc per day. Continue demeclocycline at 150 Q 6. She is being discharged today. She can get a BMP on Thursday and Thursday and see Dr. Ansari on Thursday. Perhaps a psychiatry is confined some medication that does not cause hyponatremia. In the meantime we will check into the significance of the renal mass that is under fine. (2) Altered mental status: Code(s): R41.82 - Altered mental status, unspecified Status: Acute Assessment and Plan: mentation appears pretty good but she is racked with anxiety. (3) Essential (primary) hypertension: Code(s): I10 - Essential (primary) hypertension Status: Chronic Assessment and Plan: reasonable control for now follow trend of hemodynamics (4) Generalized anxiety disorder: Code(s): F41.1 - Generalized anxiety disorder Status: Chronic Assessment and Plan: follows with Psychiatry as an outpatient on buspar She takes Pristiq which they bring from home. Subjective Date/time seen: 01/12/20 09:54 Interval history: Patient is alert. She is anxious. No appetite. not in the room. She is trying to eat some breakfast. Staff is about to get her into a chair Review of Systems Cardiovascular: Cardiovascular: Reports no additional cardiovascular complaints Respiratory: Respiratory: Reports no additional respiratory complaints Gastrointestinal: Gastrointestinal: Reports no additional gastrointestinal complaints Genitourinary: Genitourinary: Reports no additional female genitourinary complaints Exam Narrative: Exam Narrative: well developed well-nourished female anxious but in no distress lungs are clear Heart regular rate and rhythm no rub or gallop Abdomen bowel sounds positive soft Extremities no edema Skin no rash Objective Data Vital Signs Vital Signs: Vital Signs - 24 hr 01/11/20 14:00 01/12/20 00:21 01/12/20 05:28 Temperature 35.7 C L 36.7 C 36.7 C Pulse Rate 98 95 72 Respiratory Rate 18 18 14 Blood Pressure 120/85 143/81 H 150/78 H Pulse Oximetry 95 95 93 Intake/Output Intake/Output: Intake & Output 01/09/20 01/10/20 01/11/20 01/12/20 23:59 23:59 23:59 23:59 Intake Total 860 1415 1450 380 Output Total 1550 1525 1200 100 Balance -690 -110 250 280 Meds/Results Medications: Active Medications Generic Name Dose Route Start Last Admin Trade Name Freq PRN Reason Stop Dose Admin Acetaminophen 650 mg 01/07/20 22:36 Tylenol Tablet PO Q4H PRN Mild Pain (1-3) or Fever Alprazolam 0.5 mg 01/10/20 21:00 01/12/20 08:33 Xanax PO 0.5 mg QID LENA Administration Aspirin 81 mg 01/08/20 09:00 01/12/20 08:25 Aspirin Ec PO 81 mg DAILY [facility] Administration Buspirone HCl 20 mg 01/08/20 17:00 01/12/20 08:24 Buspar PO 20 mg TID LENA Administration Demeclocycline HCl 150 mg 01/10/20 09:00 01/12/20 08:27 Demeclocycline Hcl PO 150 mg QID [facility] Administration Enoxaparin Sodium 40 mg 01/08/20 21:00 01/12/20 00:18 Lovenox SUB-Q 40 mg HS [facility] Administration Lisinopril 20 mg 01/08/20 09:00 01/12/20 08:26 Prinivil PO 20 mg DAILY [facility] A
[2020-01-12] MEDS: DIPHENHYDRAMINE 1%/ZINC 0.1% CREAM 30 GM TUBE 1 APPLIC TOPICAL (11:22)
[2020-01-12 13:24] LABS: Sodium 127 mmol/L (137-145)
--- NOTE | 2020-01-12 13:58 | PM.IMPN ---
Progress Note: A&P Assessment and Plan (1) Hyponatremia: Code(s): E87.1 - Hypo-osmolality and hyponatremia Status: Acute Assessment and Plan: The patient has a hx of hyponatremia and has been hospitalized in the past at [facility]. Creatining seems to range 130-134 in the past. Sodium was 127 on 01/01. She has been drinking copious amounts of water recently which likely caused her acute episode of hyponatremia. TSH and Cortisol were in normal range. CxR on arrival was normal without signs of masses. CT head showed no acute masses or abnormality. Sodium did not improve with IV fluids. IV fluids were discontinued 01/07. Continue 1000cc fluid restriction started. Nephrology was consulted who gave her IV Saline 3% last night with improvement to 130 this morning. Talked with the patient's about discharging her and continuing outpatient evaluation with labs tomorrow and Thursday but he wanted to stay for another lab draw at 1:00 p.m.. Sodium came back at [address]. [address] to [address] Bui who wanted to start the patient on Lasix 20 mg t.i.d. and sodium chloride 1000 mg t.i.d. and recheck her sodium level in the morning. Nephrology wants to continue Demeclocycline Hcl 150 mg PO QID which is used for low sodium. He states this is something that she will be discharged on and continue monitoring her sodium as an outpatient. Repeat sodium in the morning. Continue to monitor. Desvenlafaxine is not a new medication and she is not on any other causative agents. Appreciate nephrology input. (2) Essential (primary) hypertension: Code(s): I10 - Essential (primary) hypertension Status: Chronic Assessment and Plan: Blood pressures were reviewed and are reasonably controlled with several readings above target which could be secondary to underlying anxiety. Continue lisinopril. Continue to monitor. (3) Generalized anxiety disorder: Code(s): F41.1 - Generalized anxiety disorder Status: Chronic Assessment and Plan: Continue alprazolam, buspirone, and desvenlafaxine. The patient sees Psychiatrist Dr. Mikey Will #[phone]. Told they need to fall was him within 1 week of discharge for further evaluation and medication adjustment if necessary. Add melatonin to aid in sleep. Patient denies SI or HI. (4) Major depressive disorder, single episode, unspecified: Code(s): F32.9 - Major depressive disorder, single episode, unspecified Status: Chronic Assessment and Plan: Continue desvenlafaxine. (5) Gastro-esophageal reflux disease without esophagitis: Code(s): K21.9 - Gastro-esophageal reflux disease without esophagitis Status: Chronic Assessment and Plan: Continue protonix BID. (6) Ventral hernia: Code(s): K43.9 - Ventral hernia without obstruction or gangrene Status: Acute Assessment and Plan: Chronic and reducible. No evidence of bowel obstruction. Pt has deferred intervention and is not having any acute issues at this time. (7) Bilateral kidney masses: Code(s): N28.89 - Other specified disorders of kidney and ureter Status: Acute Assessment and Plan: Visualized on CT abd/pelvis. MRI and CTA Abd/pelvis showing two cyst and nearly indiscernible 1.4 cm lesion at the interpolar region of the right kidney that are evident with equivocal enhancement on subsequent pre and postcontrast CT which remains indeterminate for complex cyst versus enhancing solid neoplasm. Will have the patient follow up with Urology as an outpatient for further evaluation. understands and agrees with the plan. All questions answered.
[2020-01-12 14:34] VITALS: BP 130/92; PULSE 103; RESP 16; TEMP 36.1; O2SAT 96
[2020-01-12] MEDS: FUROSEMIDE 20 MG TABLET PO ×2 (15:05→18:46)
[2020-01-12] MEDS: SODIUM CHLORIDE 1 GM TABLET PO ×2 (15:06→18:46)
[2020-01-12 16:17] LABS: Kappa\\Lambda Light Chains 1.26 (0.26-1.65); Lambda Light Chain 7.4 mg/L (5.7-26.3)
[2020-01-12 20:00] VITALS: PULSE 100; RESP 16; O2SAT 96
[2020-01-12 22:00] VITALS: BP 132/83; PULSE 100; RESP 16; TEMP 36.1; O2SAT 96
[2020-01-12 22:41] LABS: Albumin 3.8 g/dL (3.8-4.8); Alpha 1 Globulin 0.3 g/dL (0.2-0.3); Alpha 2 Globulin 0.8 g/dL (0.5-0.9); Beta 1 Globulin 0.5 g/dL (0.4-0.6); Gamma Globulin 0.8 g/dL (0.8-1.7); Protein, Total 6.4 g/dL (6.1-8.1)
[2020-01-13 05:11] VITALS: BP 123/86; PULSE 100; RESP 16; TEMP 36.1; O2SAT 96
[2020-01-13] MEDS: busPIRone HCL 10 MG TABLET 20 MG PO ×3 (06:02→17:28)
[2020-01-13] MEDS: ALPRAZolam (*CRX) 0.5 MG TABLET PO ×4 (06:02→20:10)
[2020-01-13 06:36] LABS: Anion Gap 8 mmol/L (8-16); Blood Urea Nitrogen 13 mg/dL (7-17); Calcium 9.3 mg/dL (8.4-10.2); Carbon Dioxide 26 mmol/L (22-30); Chloride 93 mmol/L (98-107); Estimated CRCL calculation 102 ml/min; Estimated Glomerular Filt Rate > 60; Glucose 105 mg/dL (65-105); Potassium 4.7 mmol/L (3.4-5.0); Sodium 127 mmol/L (137-145)
[2020-01-13] MEDS: ASPIRIN 81 MG ENTERIC TABLET PO (09:45)
[2020-01-13] MEDS: CHOLECALCIFEROL 1,000 UNITS TABLET 1000 UNITS PO (09:45)
[2020-01-13] MEDS: FUROSEMIDE 20 MG TABLET PO ×3 (09:46→17:28)
[2020-01-13] MEDS: DEMECLOCYCLINE HCL 150 MG TABLET PO ×4 (09:46→20:10)
[2020-01-13] MEDS: SODIUM CHLORIDE 1 GM TABLET PO ×3 (09:46→17:27)
[2020-01-13] MEDS: lisinopriL 20 MG TABLET PO (09:46)
[2020-01-13] MEDS: PANTOPRAZOLE 40 MG TABLET PO ×2 (09:46→20:11)
--- NOTE | 2020-01-13 12:18 | PCOTNOTE ---
On 01/13/20, the student, Francesca Gallardo, provided care and completed [facility] on this [facility]. I have reviewed the student's documentation and agree with the findings.
[2020-01-13 14:00] VITALS: BP 128/91; PULSE 102; RESP 18; TEMP 36.4; O2SAT 94
[2020-01-13 14:05] LABS: Sodium 128 mmol/L (137-145)
--- NOTE | 2020-01-13 16:35 | PM.IMPN ---
Progress Note: A&P Assessment and Plan (1) Hyponatremia: Code(s): E87.1 - Hypo-osmolality and hyponatremia Status: Acute Assessment and Plan: The patient has a hx of hyponatremia and has been hospitalized in the past at [facility]. Creatining seems to range 130-134 in the past. Sodium was 127 on 01/01. She has been drinking copious amounts of water recently which likely caused her acute episode of hyponatremia. TSH and Cortisol were in normal range. CxR on arrival was normal without signs of masses. CT head showed no acute masses or abnormality. Sodium did not improve with IV fluids. IV fluids were discontinued 01/07. Continue 1000cc fluid restriction started. Nephrology switched the patient to being on Lasix 20 mg TID and Salt Tabs 1000 mg TID. Her Sodium has remained stable to at 127-128. Will recheck in the morning and if still stable/improving can be discharged. Nephrology discontinued Demeclocycline Hcl 150 mg PO QID due to the cost of it being purchased outpatient. Repeat sodium in the morning. Continue to monitor. Desvenlafaxine is not a new medication and she is not on any other causative agents. Appreciate nephrology input. (2) Essential (primary) hypertension: Code(s): I10 - Essential (primary) hypertension Status: Chronic Assessment and Plan: Blood pressures were reviewed and are reasonably controlled with several readings above target which could be secondary to underlying anxiety. Continue lisinopril. Continue to monitor. (3) Generalized anxiety disorder: Code(s): F41.1 - Generalized anxiety disorder Status: Chronic Assessment and Plan: Continue alprazolam, buspirone, and desvenlafaxine. The patient sees Psychiatrist Dr. Mikey Will #[phone]. Told they need to fall was him within 1 week of discharge for further evaluation and medication adjustment if necessary. Add melatonin to aid in sleep. Patient denies SI or HI. (4) Major depressive disorder, single episode, unspecified: Code(s): F32.9 - Major depressive disorder, single episode, unspecified Status: Chronic Assessment and Plan: Continue desvenlafaxine. (5) Gastro-esophageal reflux disease without esophagitis: Code(s): K21.9 - Gastro-esophageal reflux disease without esophagitis Status: Chronic Assessment and Plan: Continue protonix BID. (6) Ventral hernia: Code(s): K43.9 - Ventral hernia without obstruction or gangrene Status: Acute Assessment and Plan: Chronic and reducible. No evidence of bowel obstruction. Pt has deferred intervention and is not having any acute issues at this time. (7) Bilateral kidney masses: Code(s): N28.89 - Other specified disorders of kidney and ureter Status: Acute Assessment and Plan: Visualized on CT abd/pelvis. MRI and CTA Abd/pelvis showing two cyst and nearly indiscernible 1.4 cm lesion at the interpolar region of the right kidney that are evident with equivocal enhancement on subsequent pre and postcontrast CT which remains indeterminate for complex cyst versus enhancing solid neoplasm. Will have the patient follow up with Urology as an outpatient for further evaluation. understands and agrees with the plan. All questions answered. (8) Hiatal hernia: Code(s): K44.9 - Diaphragmatic hernia without obstruction or gangrene Status: Acute Assessment and Plan: With GERD symptoms. CT abd/pelvis demontrates large sliding hiatal hernia. I discussed with the patients who I recommended should follow up with General Surgery for treatment since it shows the
--- NOTE | 2020-01-13 16:41 | P.PNNP_ITS ---
Progress Note: A&P Assessment and Plan (1) Hyponatremia: Code(s): E87.1 - Hypo-osmolality and hyponatremia Status: Acute Assessment and Plan: * appears to be acute on chronic * scanned labs results note sodium ranging ~ 130 - 134 since late 2014 * TSH and cortisol are okay. * CT the abdomen shows no sign of cancer. * No neurologic symptoms or signs. * Chest x-ray is negative in no pulmonary signs. * MRI of the kidneys show 2 cysts and 1 lesion too small to characterize as a cyst or solid mass. see urology as an outpatient * Uosmo 500. Sosmo not done. 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 * her sodium level mary grace to 130 then 127 twice and now 128. * demeclocycline will cost 800 dollars per month. will just stop thgis as it hasn't kicked in yet anyway. * continue fluid restrictin and lasix/NaCl tabs. * (2) Altered mental status: Code(s): R41.82 - Altered mental status, unspecified Status: Acute Assessment and Plan: * mentation appears pretty good but she is racked with anxiety. (3) Essential (primary) hypertension: Code(s): I10 - Essential (primary) hypertension Status: Chronic Assessment and Plan: * bp is good (4) Generalized anxiety disorder: Code(s): F41.1 - Generalized anxiety disorder Status: Chronic Assessment and Plan: * follows with Psychiatry as an outpatient * on buspar * She takes Pristiq which they bring from home. * she has crippling anxiety so I feel we should not change her psychiatric medications. Subjective Date/time seen: 01/13/20 16:41 Interval history: Patient is alert. She is anxious. up in a chair.; in the room. no sob or swelling Review of Systems Cardiovascular: Cardiovascular: Reports no additional cardiovascular complaints Respiratory: Respiratory: Reports no additional respiratory complaints Gastrointestinal: Gastrointestinal: Reports no additional gastrointestinal complaints Genitourinary: Genitourinary: Reports no additional female genitourinary complaints Exam Narrative: Exam Narrative: well developed well-nourished female anxious but in no distress lungs are clear Heart regular rate and rhythm no rub or gallop Abdomen bowel sounds positive soft Extremities no edema Skin no rash Objective Data Vital Signs Vital Signs: Vital Signs - 24 hr 01/12/20 20:00 01/12/20 22:00 01/13/20 05:11 Temperature 36.1 C L 36.1 C L Pulse Rate 100 100 100 Respiratory Rate 16 16 16 Blood Pressure 132/83 123/86 Pulse Oximetry 96 96 96 Intake/Output Intake/Output: Intake & Output 01/10/20 01/11/20 01/12/20 01/13/20 23:59 23:59 23:59 23:59 Intake Total 1415 1450 2200 380 Output Total 1525 1200 3900 200 Balance -110 250 -1700 180 Meds/Results Medications: Active Medications Generic Name Dose Route Start Last Admin Trade Name Freq PRN Reason Stop Dose Admin Acetaminophen 650 mg 01/07/20 22:36 Tylenol Tablet PO Q4H PRN Mild Pain (1-3) or Fever Alprazolam 0.5 mg 01/10/20 21:00 01/13/20 13:37 Xanax PO 0.5 mg QID LENA Administration Asp
--- NOTE | 2020-01-13 16:41 | PM.PNNEP ---
Progress Note: A&P Assessment and Plan (1) Hyponatremia: Code(s): E87.1 - Hypo-osmolality and hyponatremia Status: Acute Assessment and Plan: appears to be acute on chronic scanned labs results note sodium ranging ~ 130 - 134 since late 2014 TSH and cortisol are okay. CT the abdomen shows no sign of cancer. No neurologic symptoms or signs. Chest x-ray is negative in no pulmonary signs. MRI of the kidneys show 2 cysts and 1 lesion too small to characterize as a cyst or solid mass. see urology as an outpatient Uosmo 500. Sosmo not done. 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 her sodium level mary grace to 130 then 127 twice and now 128. demeclocycline will cost 800 dollars per month. will just stop thgis as it hasn't kicked in yet anyway. continue fluid restrictin and lasix/NaCl tabs. (2) Altered mental status: Code(s): R41.82 - Altered mental status, unspecified Status: Acute Assessment and Plan: mentation appears pretty good but she is racked with anxiety. (3) Essential (primary) hypertension: Code(s): I10 - Essential (primary) hypertension Status: Chronic Assessment and Plan: bp is good (4) Generalized anxiety disorder: Code(s): F41.1 - Generalized anxiety disorder Status: Chronic Assessment and Plan: follows with Psychiatry as an outpatient on buspar She takes Pristiq which they bring from home. she has crippling anxiety so I feel we should not change her psychiatric medications. Subjective Date/time seen: 01/13/20 16:41 Interval history: Patient is alert. She is anxious. up in a chair.; in the room. no sob or swelling Review of Systems Cardiovascular: Cardiovascular: Reports no additional cardiovascular complaints Respiratory: Respiratory: Reports no additional respiratory complaints Gastrointestinal: Gastrointestinal: Reports no additional gastrointestinal complaints Genitourinary: Genitourinary: Reports no additional female genitourinary complaints Exam Narrative: Exam Narrative: well developed well-nourished female anxious but in no distress lungs are clear Heart regular rate and rhythm no rub or gallop Abdomen bowel sounds positive soft Extremities no edema Skin no rash Objective Data Vital Signs Vital Signs: Vital Signs - 24 hr 01/12/20 20:00 01/12/20 22:00 01/13/20 05:11 Temperature 36.1 C L 36.1 C L Pulse Rate 100 100 100 Respiratory Rate 16 16 16 Blood Pressure 132/83 123/86 Pulse Oximetry 96 96 96 Intake/Output Intake/Output: Intake & Output 01/10/20 01/11/20 01/12/20 01/13/20 23:59 23:59 23:59 23:59 Intake Total 1415 1450 2200 380 Output Total 1525 1200 3900 200 Balance -110 250 -1700 180 Meds/Results Medications: Active Medications Generic Name Dose Route Start Last Admin Trade Name Freq PRN Reason Stop Dose Admin Acetaminophen 650 mg 01/07/20 22:36 Tylenol Tablet PO Q4H PRN Mild Pain (1-3) or Fever Alprazolam 0.5 mg 01/10/20 21:00 01/13/20 13:37 Xanax PO 0.5 mg QID LENA Administration Aspirin 81 mg 01/08/20 09:00 01/13/20 09:45 Aspirin Ec PO 81 mg DAILY LENA Administration Buspirone HCl 20 mg 01/08/20 17:00 01/13/20 13:37 Buspar PO 20 mg TID LENA Administration Demeclocycline HCl 150 mg 01/10/20 09:00 01/13/20 13:37 Demeclocycline Hcl PO 150 mg QID LENA Administration Enoxaparin Sodium 40 mg 01/08/20 21:00 01/12/20 20:43 Lovenox SUB-Q 40 mg HS LENA Administration Furosemide 20 mg 01/12/20 13:57 01/13/20 13:37 Lasix Tablet PO 20 mg TID LENA Administration Lisinopril 20 mg 01/08/20 09:00 01/13/20 09:46 Prinivil PO 20 mg DAILY LENA Administration Melatonin 5 mg 01/09/20 21:00 01/12/20 20:43 Melatonin PO 5 mg HS LENA Administration Ondansetron HCl 4 mg
[2020-01-13 19:46] VITALS: BP 111/66; PULSE 100; RESP 16; TEMP 36.6; O2SAT 96
[2020-01-13] MEDS: MELATONIN 5 MG TABLET PO (20:10)
[2020-01-13] MEDS: ENOXAPARIN 40 MG/0.4 ML SYRINGE SUB-Q (20:12)
[2020-01-14 03:44] VITALS: BP 133/90; PULSE 103; RESP 16; TEMP 36.1; O2SAT 96
[2020-01-14 06:04] LABS: Potassium 4.4 mmol/L (3.4-5.0)
[2020-01-14 06:08] LABS: Anion Gap 6 mmol/L (8-16); Blood Urea Nitrogen 17 mg/dL (7-17); Calcium 8.8 mg/dL (8.4-10.2); Carbon Dioxide 29 mmol/L (22-30); Chloride 94 mmol/L (98-107); Estimated CRCL calculation 102 ml/min; Estimated Glomerular Filt Rate > 60; Glucose 105 mg/dL (65-105); Sodium 129 mmol/L (137-145)
[2020-01-14] MEDS: ALPRAZolam (*CRX) 0.5 MG TABLET PO (08:57)
[2020-01-14] MEDS: ASPIRIN 81 MG ENTERIC TABLET PO (08:58)
[2020-01-14] MEDS: busPIRone HCL 10 MG TABLET 20 MG PO ×2 (08:58→12:09)
[2020-01-14] MEDS: PANTOPRAZOLE 40 MG TABLET PO (08:58)
[2020-01-14] MEDS: SODIUM CHLORIDE 1 GM TABLET PO ×2 (08:58→12:09)
[2020-01-14 08:59] VITALS: RESP 16; O2SAT 95
[2020-01-14] MEDS: FUROSEMIDE 20 MG TABLET PO ×2 (08:59→12:09)
[2020-01-14] MEDS: lisinopriL 20 MG TABLET PO (08:59)
[2020-01-14] MEDS: DEMECLOCYCLINE HCL 150 MG TABLET PO ×2 (08:59→12:09)
[2020-01-14] MEDS: CHOLECALCIFEROL 1,000 UNITS TABLET 1000 UNITS PO (08:59)
--- NOTE | 2020-01-14 10:45 | PM.DS ---
DS: Admitting Diagnosis Admitting Diagnosis Admitting Diagnosis: hyponatremia, altered mental status DS: Discharge Diagnosis Discharge Diagnosis (1) Hyponatremia: Code(s): E87.1 - Hypo-osmolality and hyponatremia Status: Acute Assessment and Plan: The patient has a hx of hyponatremia and has been hospitalized in the past at [facility]. Creatining seems to range 130-134 in the past. Sodium was 127 on 01/01. She has been drinking copious amounts of water recently which likely caused her acute episode of hyponatremia. TSH and Cortisol were in normal range. CxR on arrival was normal without signs of masses. CT head showed no acute masses or abnormality. Nephrology switched the patient to being on Lasix 20 mg TID and Salt Tabs 1000 mg TID. Her Sodium has remained stable to at 128-129 and increasing. Nephrology feels comfortable with discharge at this time to continue monitoring her sodium as an outpatient with [facility] Thursday (2 days) and following up with Dr. Ansari on Thursday (4 days). Continue Desvenlafaxine and follow up with Psychiatrist with any medication adjustments. Patient will continue on a 1200 cc fluid restriction diet The patient has been understand agree with the plan. All questions answered. (2) Essential (primary) hypertension: Code(s): I10 - Essential (primary) hypertension Status: Chronic Assessment and Plan: Blood pressures were reviewed and are reasonably controlled with several readings above target which could be secondary to underlying anxiety. Continue home medications and check blood pressure at home to follow-up with primary care for any adjustments. (3) Generalized anxiety disorder: Code(s): F41.1 - Generalized anxiety disorder Status: Chronic Assessment and Plan: Continue alprazolam, buspirone, and desvenlafaxine. The patient sees Psychiatrist Dr. Mikey Will #[phone]. Told they need to fall was him within 1 week of discharge for further evaluation and medication adjustment if necessary. Will prescribe melatonin for her to take at night and told him this is also an [id number]-pqiwusp medication he can have. (4) Major depressive disorder, single episode, unspecified: Code(s): F32.9 - Major depressive disorder, single episode, unspecified Status: Chronic Assessment and Plan: Continue desvenlafaxine. (5) Gastro-esophageal reflux disease without esophagitis: Code(s): K21.9 - Gastro-esophageal reflux disease without esophagitis Status: Chronic Assessment and Plan: Continue protonix BID. (6) Ventral hernia: Code(s): K43.9 - Ventral hernia without obstruction or gangrene Status: Acute Assessment and Plan: Chronic and reducible. No evidence of bowel obstruction. Referred the patient to 1 of our general surgeons for further evaluation and workup for possible surgery (7) Bilateral kidney masses: Code(s): N28.89 - Other specified disorders of kidney and ureter Status: Acute Assessment and Plan: Visualized on CT abd/pelvis. MRI and CTA Abd/pelvis showing two cyst and nearly indiscernible 1.4 cm lesion at the interpolar region of the right kidney that are evident with equivocal enhancement on subsequent pre and postcontrast CT which remains indeterminate for complex cyst versus enhancing solid neoplasm. Will have the patient follow up with Urology as an outpatient for further evaluation. understands and agrees with the plan. All questions answered. (8) Hiatal hernia: Code(s): K44.9 - Diaphragmatic hernia without obstruction or gangrene Status: Acute
[2020-01-14 14:43] LABS: Creatinine, Random Urine 59 mg/dL (20-275); Total Protein/Creatinine Ratio 136 mg/g creat (21-161)
== END 2020-01-14 12:35 | disposition home health service (06) | DRG 641 ==
LOC: ANHED 22:38 → ANH3MED 01-08 01:18
PROVIDERS: Internal Medicine Nephrology; Physician Assistant; Admitting Provider Family Medicine; Emergency Provider Emergency Medicine; PCP Family Medicine; Visit Provider Physician Assistant
DX: E87.1 Hypo-osmolality and hyponatremia (principal); F41.1 Generalized anxiety disorder; F32.9 Major depressive disorder, single episode, unspecified; K43.9 Ventral hernia without obstruction or gangrene; K21.9 Gastro-esophageal reflux disease without esophagitis; N28.89 Other specified disorders of kidney and ureter; K44.9 Diaphragmatic hernia without obstruction or gangrene
CPT/HCPCS: 36415; 51701; 70450; 71046; 74176; 74178; 74181; 80048; 80053; 80069; 81001; 82533; 82570; 83883; 83930; 83935; 84155; 84156; 84165; 84166; 84295; 84300; 84439; 84443; 84588; 85025; 85027; 86255; 96361; 96374; 97110; 97116; 97161; 97165; 99285; A9270; J1650; J2060; J7030; J7120; J7131; Q9967

== ENCOUNTER 2020-01-16 07:56 | Outpatient (CLI) | payer MEDICARE, OTHER, SELFPAY ==
[2020-01-16 08:47] LABS: Anion Gap 9 mmol/L (8-16); Blood Urea Nitrogen 18 mg/dL (7-17); Calcium 9.1 mg/dL (8.4-10.2); Carbon Dioxide 31 mmol/L (22-30); Chloride 91 mmol/L (98-107); Estimated Glomerular Filt Rate > 60; Glucose 129 mg/dL (65-105); Potassium 3.8 mmol/L (3.4-5.0); Sodium 131 mmol/L (137-145)
== END 2020-01-16 07:57 | disposition home or self-care (01) ==
PROVIDERS: PCP Family Medicine; Visit Provider Physician Assistant
DX: E87.1 Hypo-osmolality and hyponatremia (principal)
CPT/HCPCS: 36415; 80048; 99212; G0463

== ENCOUNTER 2020-02-08 07:21 | Outpatient (CLI) | payer MEDICARE, OTHER, SELFPAY ==
[2020-02-08 08:18] LABS: Alanine Aminotransferase 20 U/L (4-35); Albumin Level 4.2 g/dL (3.5-5.1); Alkaline Phosphatase 104 U/L (38-126); Anion Gap 8 mmol/L (8-16); Aspartate Amino Transferase 23 U/L (14-36); Bilirubin,Total 0.3 mg/dL (0.2-1.3); Blood Urea Nitrogen 15 mg/dL (7-17); Carbon Dioxide 33 mmol/L (22-30); Chloride 96 mmol/L (98-107); Estimated Glomerular Filt Rate > 60; Glucose 133 mg/dL (65-105); Potassium 3.5 mmol/L (3.4-5.0); Sodium 137 mmol/L (137-145)
== END 2020-02-08 07:22 | disposition home or self-care (01) ==
PROVIDERS: PCP Family Medicine; Referring Provider Internal Medicine Nephrology; Visit Provider Family Medicine
DX: E87.1 Hypo-osmolality and hyponatremia (principal)
CPT/HCPCS: 36415; 80053; 99212; G0463

== ENCOUNTER 2020-03-12 07:23 | Outpatient (CLI) | payer MEDICARE, OTHER, SELFPAY ==
[2020-03-12 08:06] LABS: Albumin Level 4.1 g/dL (3.5-5.1); Anion Gap 11 mmol/L (8-16); Blood Urea Nitrogen 12 mg/dL (7-17); Calcium 8.8 mg/dL (8.4-10.2); Carbon Dioxide 29 mmol/L (22-30); Chloride 94 mmol/L (98-107); Estimated Glomerular Filt Rate > 60; Glucose 121 mg/dL (65-105); Phosphorus 3.6 mg/dL (2.5-4.5); Potassium 3.6 mmol/L (3.4-5.0); Sodium 134 mmol/L (137-145)
== END 2020-03-12 07:24 | disposition home or self-care (01) ==
PROVIDERS: PCP Family Medicine; Visit Provider Internal Medicine Nephrology
DX: E87.1 Hypo-osmolality and hyponatremia (principal)
CPT/HCPCS: 36415; 80069; 99212; G0463

== ENCOUNTER 2020-04-10 07:42 | Outpatient (CLI) | payer MEDICARE, OTHER, SELFPAY ==
[2020-04-10 08:40] LABS: Albumin Level 4.1 g/dL (3.5-5.1); Anion Gap 4 mmol/L (8-16); Blood Urea Nitrogen 10 mg/dL (7-17); Calcium 8.8 mg/dL (8.4-10.2); Carbon Dioxide 32 mmol/L (22-30); Chloride 96 mmol/L (98-107); Estimated Glomerular Filt Rate > 60; Glucose 99 mg/dL (65-105); Phosphorus 3.3 mg/dL (2.5-4.5); Potassium 3.8 mmol/L (3.4-5.0); Sodium 132 mmol/L (137-145)
== END 2020-04-10 07:43 | disposition home or self-care (01) ==
PROVIDERS: PCP Family Medicine; Visit Provider Internal Medicine Nephrology
DX: E87.1 Hypo-osmolality and hyponatremia (principal)
CPT/HCPCS: 36415; 80069; 99212; G0463

== ENCOUNTER 2020-05-10 07:36 | Outpatient (CLI) | payer MEDICARE, OTHER, SELFPAY ==
[2020-05-10 08:19] LABS: Albumin Level 3.6 g/dL (3.5-5.1); Anion Gap 4 mmol/L (8-16); Blood Urea Nitrogen 14 mg/dL (7-17); Calcium 8.6 mg/dL (8.4-10.2); Carbon Dioxide 32 mmol/L (22-30); Chloride 99 mmol/L (98-107); Estimated Glomerular Filt Rate > 60; Glucose 104 mg/dL (65-105); Phosphorus 4.9 mg/dL (2.5-4.5); Potassium 4.2 mmol/L (3.4-5.0); Sodium 135 mmol/L (137-145)
== END 2020-05-10 07:37 | disposition home or self-care (01) ==
PROVIDERS: PCP Family Medicine; Visit Provider Internal Medicine Nephrology
DX: E87.1 Hypo-osmolality and hyponatremia (principal)
CPT/HCPCS: 36415; 80069; 99212; G0463

== ENCOUNTER 2020-06-12 13:40 | Outpatient (CLI) | payer MEDICARE, OTHER, SELFPAY ==
--- NOTE | ~2020-06-12 | XR_ITS ---
XR lumbar spine 2-3V DATE: 06/12/2020 13:57 INDICATION: Low back pain, right side. TECHNIQUE: AP, lateral and coned lateral lumbosacral views COMPARISON: None FINDINGS: There is diffuse osteopenia. There is moderate compression fracture deformity of T12, not present on 04/01/2011. There is chronic anterior wedging and loss of height at L2, present on 04/01/2011. There is severe degenerative disc disease at L2-3, L3-4. There is moderate degenerative disc disease and minimal grade 1 anterolisthesis at L4-5. No other fracture or any apparent bone destruction is noted. The included lower thoracic and lumbar p edicles are intact. Left bipolar hip prosthesis. Extensive calcification of abdominal aortic and iliac arteries, without apparent abdominal aortic ane urysm. Hiatal hernia is incidentally noted. IMPRESSION: Diffuse osteopenia Multilevel degenerative disc disease Compression fracture deformity of T12, new since 04/01/2011 Chronic mild compression fracture deformity of L2, present on 04/01/2011 Left bipolar hip prosthesis Reviewed, dictated and finalized at location B. CHING SUPERVISOR
== END 2020-06-12 13:41 | disposition home or self-care (01) ==
LOC: ANHIMG 13:46
PROVIDERS: PCP Family Medicine; Visit Provider Physician Assistant
DX: M85.88 Other specified disorders of bone density and structure, other site (principal); M51.36 Other intervertebral disc degeneration, lumbar region; S32.020D Wedge compression fracture of second lumbar vertebra, subsequent encounter for fracture with routine healing; X58.XXXD Exposure to other specified factors, subsequent encounter; S22.080A Wedge compression fracture of T11-T12 vertebra, initial encounter for closed fracture; X58.XXXA Exposure to other specified factors, initial encounter
CPT/HCPCS: 72100

== ENCOUNTER 2020-06-17 05:05 | Emergency (ER) | payer MEDICARE, OTHER, SELFPAY ==
--- NOTE | ~2020-06-17 | CT_ITS ---
EXAMINATION: CT abdomen pelvis wo con DATE: 06/17/2020 06:19 INDICATION: Back and flank pain TECHNIQUE: Computed tomography (CT) of the abdomen and pelvis was performed without intravenous contr ast. The dose-length product (DLP) was 690.80 mGy-cm. Automated exposure control and iterative recons truction technique were employed. COMPARISON: 01/10/2020 FINDINGS: Again seen is a large hiatal hernia containing the stomach, the spleen, and much of the palacios creas. There is a small amount of inflammatory fat stranding adjacent to the distal body of the stoma ch as it passes into the abdomen. The liver, gallbladder, and adrenal glands are normal. There is a s table 1.6 cm mass of the right mid kidney measuring soft tissue attenuation. A peripherally calcified mass of the right kidney is stable. There is a stable 1.6 cm mass of the left kidney lower pole also measuring soft tissue attenuation. No pathologically enlarged abdominal or pelvic lymph nodes are id entified. There is calcified atherosclerosis of the aorta and many of the other arteries. There is no free intraperitoneal gas or evidence of bowel obstruction. There is a midline epigastric hernia cont aining a short segment of nonobstructed transverse colon. Changes of left hip arthroplasty are noted. There is severe lumbar spondylosis. A T12 burst fracture is noted. IMPRESSION: 1. Large hiatal hernia containing the stomach, spleen, and much of the pancreas. Small amount of fat stranding near the body of the stomach as it passes through into the abdomen of unclear significance. 2. Stable bilateral kidney masses which may be benign or malignant. Continued follow-up is recommende d. Reviewed, dictated and finalized at location A. O PROFESSOR IMPRESSION: 1. Large hiatal hernia containing the stomach, spleen, and much of the pancreas . Small amount of fat stranding near the body of the stomach as it passes throu gh into the abdomen of unclear significance. 2. Stable bilateral kidney masses which may be benign or malignant. Continued f ollow-up is recommended.
[2020-06-17 05:07] VITALS: BP 148/103; PULSE 136; RESP 20; TEMP 36.4; O2SAT 93
--- NOTE | 2020-06-17 05:33 | ED.GENADULT ---
HPI - General Adult General Chief complaint: Back Pain/Injury Stated complaint: back pain Time Seen by Provider: 06/17/20 05:20 History of Present Illness HPI narrative: Patient is 69-year-old female who presents the emergency department with chief complaint of back pain. Patient reports that for the last week she has been having pain in her lumbar region reports she is seen her primary care physician and had a plain film x-ray that showed there may be some compression fractures. The patient states that she has been at home her pains been not improving and reports that she has not had any bowel or bladder dysfunction denies any paresthesias. Patient states she is unable to get comfortable states she has become extremely anxious with this denies chest pain denies shortness of breath. Related Data Home Medications Medication Instructions Recorded Confirmed alprazolam 1 mg tablet 1 mg PO BID 10/21/19 05/22/20 aspirin 81 mg tablet,delayed 81 mg PO DAILY 10/21/19 05/22/20 release buspirone 10 mg tablet 20 mg PO TID 10/21/19 05/22/20 calcium carbonate 500 mg calcium 500 mg PO DAILY 10/21/19 05/22/20 (1,250 mg) tablet cholecalciferol (vitamin D3) 25 25 mcg PO DAILY 10/21/19 05/22/20 mcg (1,000 unit) capsule desvenlafaxine succinate 50 mg 50 mg PO DAILY 10/21/19 05/22/20 tablet,extended release 24 hr cqjxbxuw-vxizzjm-yxgf-lutein tablet See Rx Instructions .ROUTE .COMPLEX 10/21/19 05/22/20 lisinopril 20 mg PO DAILY 01/08/20 05/22/20 pantoprazole 40 mg PO BID 01/08/20 05/22/20 olanzapine 10 mg tablet 10 mg PO BID tablet 05/22/20 05/22/20 Allergies Allergy/AdvReac Type Severity Reaction Status Date / Time adhesive Allergy Unknown Rash Verified 02/09/20 14:12 morphine Allergy Unknown Swelling Verified 02/09/20 14:12 procaine Allergy Unknown Agitated Verified 02/09/20 14:12 PROCAINE HCL Allergy Unknown Agitated Uncoded 01/23/20 14:55 Review of Systems Review of Systems: Narrative: A 10 system review of systems was completed on the patient and is negative except for what is stated in the HPI. Nursing and ancillary documentation was reviewed. [facility] Past Medical History Medical History Essential (primary) hypertension Gastro-esophageal reflux disease without esophagitis Generalized anxiety disorder Hyperlipidemia Hyponatremia Major depressive disorder, single episode, unspecified Post-polio syndrome Surgical History Surgical History H/O: hysterectomy History of arthroplasty of both wrists right wrist History of hip surgery Partial left hip replacement at [facility] Status post electroconvulsive therapy Family History Family History Father Hypertension Family history of diabetes mellitus in first degree relative Family history of lung cancer Mother Family history of thyroid disease Social History Social History Social History: Mrs. Samayoa lives at home in [place] with her Pablo (Crow). She has two children. She is retired. She used to work at [employer] and in [employer] at [employer]. She is a lifelong non-smoker. She reports occasional alcohol use and denies illicit substance use. She wishes to be a full code and has designated her Crow as her surrogate decision maker. Smoking status: Former smoker Tobacco type: cigarettes Smoking end date: 04/27/03 Alcohol intake: former Substance use: never Substance use type: does not use Gender identity (if verbalized by the patient): Female Spiritual care concerns: No Agree to blood products: No Exam Narrative: Exam Narrative: GENERAL: Well-appearing, well-nourished, and in no acute distress. HEAD: Normocephalic, atraumatic. EYES: PERRLA and EOMI. ENT: Nares clear, no rhinorrh
[2020-06-17] MEDS: LORazepam INJ (*CRX) 2 MG/ML VIAL 1 MG IV PUSH (05:50)
[2020-06-17] MEDS: HYDROmorphone HCL INJ (*CRX) 1 MG/ML SYR IV PUSH (05:50)
[2020-06-17 05:59] LABS: Basophils Percent Auto 0.3 % (0.2-1.2); Eosinophils Absolute Auto 0.1 K/mm3 (0-0.3); Eosinophils Percent Auto 1.2 % (0-4.4); Hematocrit 42.4 % (37.0-47.0); Hemoglobin 13.9 g/dL (12.0-15.0); Immature Granulocyte Absolute 0.03 K/mm3 (0.00-0.031); Immature Granulocyte Percent A 0.3 % (0-0.5); Lymphocytes Absolute Auto 1.54 K/mm3 (0.9-3.2); Mean Corpuscular HGB Conc 32.8 g/dl (32-36); Mean Corpuscular Volume 85.3 fl (80-100); Monocytes Absolute Auto 0.9 K/mm3 (0.1-0.6); Monocytes Percent Auto 9.5 % (2.6-8.5); Neutrophils Absolute Auto 6.5 K/mm3 (1.3-6.7); Neutrophils Percent Auto 71.7 % (45.5-73.1); Platelet Count Result 516 k/mm3 (150-375); Red Blood Count 4.97 M/mm3 (4.2-5.4); Red Cell Distribution Width 15.1 % (11.5-14.5); White Blood Count 9.1 K/mm3 (4.5-10.0)
[2020-06-17 06:14] LABS: Alanine Aminotransferase 20 U/L (4-35); Alkaline Phosphatase 98 U/L (38-126); Anion Gap 5 mmol/L (8-16); Aspartate Amino Transferase 38 U/L (14-36); Bilirubin,Total 0.4 mg/dL (0.2-1.3); Blood Urea Nitrogen 9 mg/dL (7-17); Calcium 8.8 mg/dL (8.4-10.2); Carbon Dioxide 31 mmol/L (22-30); Chloride 99 mmol/L (98-107); Estimated Glomerular Filt Rate > 60; Glucose 126 mg/dL (65-105); Potassium 3.9 mmol/L (3.4-5.0); Sodium 135 mmol/L (137-145)
[2020-06-17 06:20] VITALS: TEMP 36.4
[2020-06-17 06:31] VITALS: BP 113/97; PULSE 111; RESP 20; O2SAT 93
--- NOTE | 2020-06-17 06:31 | PC.NURSE ---
Patient requesting to go home. CB Guillen notified.
== END 2020-06-17 07:35 | disposition home or self-care (01) ==
PROVIDERS: Emergency Provider Emergency Medicine; PCP Family Medicine
DX: S22.081A Stable burst fracture of T11-T12 vertebra, initial encounter for closed fracture (principal); I10 Essential (primary) hypertension; K21.9 Gastro-esophageal reflux disease without esophagitis; E78.5 Hyperlipidemia, unspecified; F41.1 Generalized anxiety disorder; F32.9 Major depressive disorder, single episode, unspecified; G14 Postpolio syndrome; Z79.82 Long term (current) use of aspirin; Z96.642 Presence of left artificial hip joint; N28.89 Other specified disorders of kidney and ureter; K44.9 Diaphragmatic hernia without obstruction or gangrene; X58.XXXA Exposure to other specified factors, initial encounter
CPT/HCPCS: 36415; 74176; 80053; 85025; 96374; 96375; 99284; J1170; J2060

== ENCOUNTER 2020-06-23 21:37 | Inpatient (IN) | payer MEDICARE, OTHER, SELFPAY ==
--- NOTE | ~2020-06-23 | XR_ITS ---
EXAMINATION: XR chest 1V portable DATE: 06/25/2020 08:32 INDICATION: Hypoxia. TECHNIQUE: A single frontal view of the chest was obtained. COMPARISON: Chest single view 06/24/2020, CT abdomen and pelvis 06/24/2020 FINDINGS: The lung volumes are small. There is a large hiatal hernia. There is mild atelectasis in th e lower lung zones. No pleural effusion or pneumothorax. The heart size is normal. IMPRESSION: 1. Large hiatal hernia. 2. Small lung volumes with mild atelectasis in the lower lung zones. Reviewed, dictated and finalized at location A. ER TUBING BACKER
--- NOTE | ~2020-06-23 | CT_ITS ---
EXAMINATION: CT brain wo con DATE: 06/24/2020 01:34 INDICATION: Confusion, combativeness. Altered mental state. TECHNIQUE: Computed tomography (CT) of the head was performed without intravenous contrast. The mA wa s adjusted according to patient size. Iterative reconstruction technique was employed. Exam dose: 68 1.00 mGy-cm total exam DLP. COMPARISON: 01/07/2020 CT brain FINDINGS: There is cerebral atherosclerosis. There is nonspecific diminished attenuation of the cereb ral white matter, likely due to chronic small vessel ischemic changes. No intracranial mass lesion or hemorrhage or cerebrovascular accident. Minimal bilateral benign basal ganglia calcification. No midline shift or mass effect. No subdural or epidural hematoma. No skull fracture or bone destruction. Included paranasal sinuses and mastoid air cells are normally developed and aerated. IMPRESSION: Cerebral atherosclerosis No acute intracranial finding Reviewed, dictated and finalized at Location [facility]. Reviewed, dictated and finalized at location A. ING ROOM ASSOCIATE
--- NOTE | ~2020-06-23 | CT_ITS ---
EXAMINATION: CT abdomen pelvis wo con DATE: 06/24/2020 01:34 INDICATION: Abdominal pain TECHNIQUE: Computed tomography (CT) of the abdomen and pelvis was performed without intravenous contr ast. Automated exposure control and iterative reconstruction technique were employed. Exam dose: 101 1.24 mGy-cm total exam DLP. COMPARISON: June 17, 2020 CT abdomen pelvis January 10, 2020 CT abdomen pelvis without and with IV contrast FINDINGS: There is discoid atelectasis and/or scarring at both lung bases. There is a large hiatal hernia containing stomach, spleen, pancreas. No pericardial or pleural effusion. The liver, gallbladder, bile ducts, spleen, pancreas, and adrenal glands are unremarkable other than the spleen and pancreas during situated within the hiatal hernia. 12 mm calcified mass of right kidney. Probable bilateral renal cysts, demonstrated to better advantag e with IV contrast material on 01/10/2020 CT abdomen pelvis examination. No urinary tract calculus or hydroureteronephrosis. There is extensive calcification of the abdominal aorta but no aneurysm. No intraperitoneal or retrop eritoneal or pelvic mass lesion or adenopathy or ascites is evident. The urinary bladder is unremarkable. Status post hysterectomy. There is a supraumbilical ventral abdominal wall hernia containing unobstructed transverse colon. The re are numerous diverticula of the sigmoid and descending colon; right-sided diverticula are noted as well. No CT evidence of diverticulitis. No bowel obstruction, bowel wall thickening, pneumatosis or intraperitoneal free air. There is a prominent amount of fecal material in the rectosigmoid area. Burst fracture deformity of T12. Mild anterior wedge compression fracture deformity, chronic, at L2. There is severe degenerative disc disease at L2-3, L3-4, mildly prominent degenerative disease at L4- 5. Left hip replacement. IMPRESSION: Large hiatal hernia containing spleen and portion of the pancreas as well as stomach Supraumbilical ventral abdominal wall hernia containing nonobstructed colon Stable prominent calcified right renal mass Bilateral renal cysts Status post hysterectomy Diverticulosis of the left and right colon; no CT evidence of diverticulitis New burst fracture deformity of T12 since 01/08/2020 Reviewed, dictated and finalized at [facility]. Reviewed, dictated and finalized at location A. R HANGER
--- NOTE | ~2020-06-23 | XR_ITS ---
XR chest 1V portable DATE: 06/24/2020 03:49 INDICATION: Transient alteration of awareness TECHNIQUE: Portable upright AP chest on 07/22/2020 at 0351 hours COMPARISON: 01/07/2020 AP and lateral chest FINDINGS: There is moderate elevation of the right leaf of the diaphragm. There is a very large hiata l hernia. Probable cardiomegaly. Heart size is not optimally evaluated however on AP projection because of magn ification. There is mild atelectasis in the left lower lung likely due to compressive atelectasis from the large hiatal hernia. Mild atelectasis at the right lung base, likely secondary to the elevated diaphragm. No pulmonary consolidation is noted otherwise. No pleural effusion or pneumothorax. Diffuse osteopenia. IMPRESSION: Moderate elevation right diaphragm and large hiatal hernia with associated compressive at electasis Otherwise no active pulmonary disease Reviewed, dictated and finalized at location A. AIGN MARKETING MANAGER IMPRESSION: Moderate elevation right diaphragm and large hiatal hernia with ass ociated compressive atelectasis Otherwise no active pulmonary disease
[2020-06-23 21:37] VITALS: BP 97/77; PULSE 131; RESP 19; TEMP 36.3; O2SAT 95
--- NOTE | 2020-06-23 21:47 | ECG_ITS ---
Measurements Intervals [place] Rate: 131 P: 58 LA: 165 QRS: 41 QRSD: 74 T: 56 QT: 379 QTc: 561 Interpretive Statements SINUS TACHYCARDIA NONSPECIFIC T-WAVE ABNORMALITY- ANTEROLAT/INF LEADS BASELINE ARTIFACT- I, II, III, AVR ABNORMAL ECG Electronically Signed On 06-24-2020 7:56:49 THERMODYNAMICS TEACHER by Dieter Hernández D.O.
[2020-06-23 21:49] VITALS: O2SAT 95
--- NOTE | 2020-06-23 21:59 | ED.AMS ---
HPI - Altered Mental Status General Chief Complaint: Altered Mental Status Stated Complaint: AMS Source: RN notes reviewed History of Present Illness HPI narrative: Patient presents to emergency department from home for agitation. History is per the patient's as well as the patient. states the patient been dealing with constipation and been taking some laxatives. She began to have some loose stools this evening. He states that he was trying to help the patient with loose stools and the patient became more agitated. He states that the patient has a history of bipolar disorder and has a current psychiatrist that she sees she has been having increased difficulty with agitation over the past 2 months he states that she was recently in psychiatric facility the beginning of April and then had fallen and injured her back approximately a month ago and that has increased her agitation since that time he states that she is on Zyprexa 10 mg twice a day and recently had Geodon 40 mg twice a day added on after discussion with the psychiatrist on June 19. Per the he is unable to care for the patient at home any longer he states he believes the patient's been taking her medication but she does take her own medications the patient currently denies any symptoms she denies having any recent illness she denies any chest pain shortness of breath or any other symptoms Related Data Home Medications Medication Instructions Recorded Confirmed alprazolam 1 mg tablet 1 mg PO BID 10/21/19 06/19/20 aspirin 81 mg tablet,delayed 81 mg PO DAILY 10/21/19 06/24/20 release buspirone 10 mg tablet 20 mg PO TID 10/21/19 06/24/20 calcium carbonate 500 mg calcium 500 mg PO DAILY 10/21/19 06/19/20 (1,250 mg) tablet cholecalciferol (vitamin D3) 25 25 mcg PO DAILY 10/21/19 06/19/20 mcg (1,000 unit) capsule desvenlafaxine succinate 50 mg 50 mg PO DAILY 10/21/19 06/19/20 tablet,extended release 24 hr [id number]-ufvkaqy-swyh-lutein tablet See Rx Instructions .ROUTE .COMPLEX 10/21/19 06/19/20 lisinopril 20 mg PO DAILY 01/08/20 06/24/20 pantoprazole 40 mg PO DAILY 01/08/20 06/24/20 olanzapine 10 mg tablet 1 mg PO DAILY tablet 05/22/20 06/24/20 ziprasidone HCl 06/23/20 furosemide 20 mg PO DAILY 06/24/20 06/24/20 sodium chloride 0.5 g PO DAILY 06/24/20 06/24/20 Allergies Allergy/AdvReac Type Severity Reaction Status Date / Time adhesive Allergy Unknown Rash Verified 06/23/20 22:00 morphine Allergy Unknown Swelling Verified 06/23/20 22:00 procaine Allergy Unknown Agitated Verified 06/23/20 22:00 PROCAINE HCL Allergy Unknown Agitated Uncoded 06/19/20 08:29 Review of Systems Review of Systems: Narrative: Gen.: Denies fevers or chills ENT: Denies congestion Respiratory: Denies shortness of breath or cough CV: Denies chest pain or palpitations GI: Denies abdominal pain nausea, emesis reports diarrhea Musculoskeletal: Denies back pain or muscle pain Neuro: Denies numbness, tingling, weakness or focal weakness Skin: Denies rash Except as documented, all other systems reviewed and negative PMFSH Past Medical History Medical History Essential (primary) hypertension Gastro-esophageal reflux disease without esophagitis Generalized anxiety disorder Hyperlipidemia Hyponatremia Major depressive disorder, single episode, unspecified Post-polio syndrome Surgical History Surgical History H/O: hysterectomy History of arthroplasty of both wrists right wrist History of hip surgery Partial left hip replacement at [place] Status post electroconvulsive therapy Family History Family History Father Hypertension Family history of diabetes mellitus in first degree relative Family history of lung cancer Mother Family history of thyroid disease Social History Social History (Reviewed
--- NOTE | 2020-06-23 22:11 | PC.NURSE ---
Patient pulled out her IV, yelling, NO! NO IV, I'm done! Patient uncooperative and agitated. ERP notified.
[2020-06-23 22:15] LABS: Glucose Point of Care 141 (65-105)
--- NOTE | 2020-06-23 22:17 | PC.NURSE ---
Patient screaming and thrashing in on the stretcher, pulled off her leads and pulse ox. ERP in room, patient still yelling and screaming. ERP notified.
[2020-06-23] MEDS: LORazepam INJ (*CRX) 2 MG/ML VIAL 1 MG IM (22:22)
--- NOTE | 2020-06-23 22:49 | PC.NURSE ---
This nurse attempted to place IV, patient uncooperative and attempt was unsuccessful. ERP notified, states to give more time for IM shot to start working and attempt again.
[2020-06-23] MEDS: OLANZapine 10 MG INJ VIAL IM (23:17)
[2020-06-23] MEDS: SODIUM CHLORIDE 0.9% IV 1,000 ML 999 ML IV CONT (23:43)
[2020-06-23 23:45] LABS: Basophils Absolute Auto 0.1 K/mm3 (0.0-0.1); Basophils Percent Auto 0.3 % (0.2-1.2); Eosinophils Percent Auto 0.2 % (0-4.4); Hematocrit 43.6 % (37.0-47.0); Hemoglobin 14.3 g/dL (12.0-15.0); Immature Granulocyte Percent A 0.5 % (0-0.5); Lymphocytes Absolute Auto 0.94 K/mm3 (0.9-3.2); Mean Corpuscular HGB Conc 32.8 g/dl (32-36); Mean Corpuscular Hemoglobin 27.9 pg (26-34); Mean Corpuscular Volume 85.2 fl (80-100); Mean Platelet Volume 8.5 fl (7.4-10.4); Monocytes Percent Auto 5.4 % (2.6-8.5); Neutrophils Absolute Auto 16.6 K/mm3 (1.3-6.7); Neutrophils Percent Auto 88.6 % (45.5-73.1); Platelet Count Result 569 k/mm3 (150-375); Red Blood Count 5.12 M/mm3 (4.2-5.4); Red Cell Distribution Width 15.1 % (11.5-14.5); White Blood Count 18.8 K/mm3 (4.5-10.0)
[2020-06-23 23:55] LABS: INR 0.9; Prothrombin Time 13.1 Seconds (11.1-14.7)
[2020-06-23 23:56] LABS: Partial Thromboplastin Time 29.5 SECONDS (22.3-36.8)
--- NOTE | 2020-06-23 23:56 | PC.NURSE ---
Patient pulled out her IV, yelling in the room. Patient yelling at Xray attempting to get image, refusing xray to come into room. ERP notified. Patient yelling in room, I'm going to poop on the bed! I'm going to do it! Patient had bedpan placed underneath her.
[2020-06-23 23:57] LABS: Alanine Aminotransferase 25 U/L (4-35); Alkaline Phosphatase 115 U/L (38-126); Anion Gap 8 mmol/L (8-16); Aspartate Amino Transferase 45 U/L (14-36); Bilirubin,Total 0.6 mg/dL (0.2-1.3); Blood Urea Nitrogen 15 mg/dL (7-17); Calcium 8.9 mg/dL (8.4-10.2); Carbon Dioxide 28 mmol/L (22-30); Chloride 97 mmol/L (98-107); Estimated Glomerular Filt Rate > 60; Glucose 144 mg/dL (65-105); Potassium 4.3 mmol/L (3.4-5.0); Sodium 133 mmol/L (137-145)
[2020-06-23 23:58] LABS: Ethanol < 10 mg/dL (<10)
[2020-06-24] VITALS (22 sets, daily range): BP systolic 75–116; BP diastolic 56–97; PULSE 61–130; RESP 14–32; TEMP 36–37.4; O2SAT 91–100; BMI 32.8
[2020-06-24] LABS: Add Urine Microscopic? YES; Appearance Urine Clear (Clear); Bilirubin Urine Negative (Negative); Blood Urine Negative (Negative); Color Urine Yellow (Yellow); Glucose Urine UA Negative (Negative); Hyaline Casts Urine 20-29 /lpf; Ketones Urine Negative (Negative); Leukocyte Esterase Ur Negative LEU/UL (Negative); Mucus Urine Rare /lpf; Nitrate Urine Negative (Negative); Protein Urine Negative (Negative); RBC Urine 0-2 /hpf (0-2); Specific Grav Ur 1.011 (1.001-1.035); Squamous Epithelial Cell Urine Rare /hpf (Few); Urobilinogen Urine Negative mg/dL (<2.0); WBC Urine 0-3 /hpf
[2020-06-24 00:24] LABS: Amphetamine Screen Urine Negative (Negative); Barbiturate Screen Urine Negative (Negative); Benzodiazepines Screen Urine Positive (Negative); Cannabinoid Screen Urine Negative (Negative); Cocaine Screen Urine Negative (Negative); Methadone Screen Urine Negative (Negative); Opiate Screen Urine Positive (Negative); Phencyclidine Screen Urine Negative (Negative)
[2020-06-24] MEDS: LORazepam INJ (*CRX) 2 MG/ML VIAL 1 MG IM ×3 (00:26→02:06)
--- NOTE | 2020-06-24 01:09 | PC.NURSE ---
Patient uncooperative with repeat VS.
--- NOTE | 2020-06-24 01:15 | PC.NURSE ---
Patient taken to CT.
[2020-06-24] MEDS: diphenhydrAMINE HCl INJ 50 MG/ML VIAL IM (02:04)
--- NOTE | 2020-06-24 03:10 | PC.NURSE ---
Pt noted to have continuous loose stools. Pt cleaned up three times as she rolls around in the bed. Pt refusing to hold still or participate in care. Unable to fully clean bed as patient will not allow blankets to be removed.
--- NOTE | 2020-06-24 03:30 | PC.NURSE ---
Patient continuing to refuse to participate in care, rolling around in the bed. Patient having loose stools, cleaned up but refusing to let blankets be removed or changed.
--- NOTE | 2020-06-24 03:32 | PC.NURSE ---
Sarita from Crisis in room with patient and her .
--- NOTE | 2020-06-24 04:26 | PC.NURSE ---
Sarita with Crisis stated that the patient does have an involuntary petition filled out for patient, but the patient is being admitted for medical reasons. Sarita stated that once the patient is medically cleared, after being cleared for discharge from our facility to call them back, to contact Crisis to have patient evaluated again.
--- NOTE | 2020-06-24 05:00 | PC.NURSE ---
This patient, Kim Samayoa, was admitted to Intensive Care Unit-1. Patient/family oriented to hospital policies and general routines including ID bracelet, bed and alarms, visiting hours, pain management, procedures, bathroom and other care routines, personal items, smoking policy, room service/diet, and visiting hours. Information on how to activate the Rapid Response Team has been discussed. Patient/Family are encouraged to report perceived risks to care and to ask questions if they do not understand what they are told or what they should do.
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
[2020-06-24] MEDS: SODIUM CHLORIDE 0.9% IV 1,000 ML 125 ML IV CONT ×3 (05:22→19:35)
[2020-06-24] MEDS: dexmedeTOMIDine 400 MCG/100 ML 400 MCG/100 ML BAG IV CONT (05:22)
[2020-06-24 05:34] LABS: Lactic Acid Reflex 1.5 mmol/L (0.7-2.1)
[2020-06-24] MEDS: SODIUM CHLORIDE 0.9% IVPB (06:33)
[2020-06-24] MEDS: DEXMEDETOMIDINE IVPB (06:33)
[2020-06-24] MEDS: SODIUM CHLORIDE 0.9% IV 1,000 ML 999 ML IV CONT (08:11)
[2020-06-24] MEDS: PANTOPRAZOLE SODIUM IV 40 MG VIAL IV PUSH (08:35)
[2020-06-24] MEDS: ENOXAPARIN 40 MG/0.4 ML SYRINGE SUB-Q (08:35)
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
[2020-06-24 09:19] LABS: Basophils Percent Auto 0.3 % (0.2-1.2); Eosinophils Percent Auto 0.1 % (0-4.4); Hematocrit 38.7 % (37.0-47.0); Hemoglobin 12.5 g/dL (12.0-15.0); Immature Granulocyte Absolute 0.04 K/mm3 (0.00-0.031); Immature Granulocyte Percent A 0.3 % (0-0.5); Lymphocytes Absolute Auto 1.09 K/mm3 (0.9-3.2); Lymphocytes Percent Auto 9.1 % (18.3-44.2); Mean Corpuscular HGB Conc 32.3 g/dl (32-36); Mean Corpuscular Volume 86.8 fl (80-100); Mean Platelet Volume 8.7 fl (7.4-10.4); Monocytes Absolute Auto 0.9 K/mm3 (0.1-0.6); Monocytes Percent Auto 7.4 % (2.6-8.5); Neutrophils Percent Auto 82.8 % (45.5-73.1); Platelet Count Result 429 k/mm3 (150-375); Red Blood Count 4.46 M/mm3 (4.2-5.4)
[2020-06-24 09:30] LABS: Anion Gap 4 mmol/L (8-16); Blood Urea Nitrogen 13 mg/dL (7-17); Calcium 7.5 mg/dL (8.4-10.2); Carbon Dioxide 26 mmol/L (22-30); Chloride 104 mmol/L (98-107); Estimated CRCL calculation 61 ml/min; Estimated Glomerular Filt Rate > 60; Glucose 115 mg/dL (65-105); Potassium 4.2 mmol/L (3.4-5.0); Sodium 134 mmol/L (137-145)
[2020-06-24] MEDS: OLANZapine 10 MG INJ VIAL (09:40)
[2020-06-24] MEDS: HALOPERIDOL LACTATE 5 MG/ML VIAL (09:48)
[2020-06-24] MEDS: LORazepam INJ (*CRX) 2 MG/ML VIAL (10:19)
--- NOTE | 2020-06-24 10:36 | PC.NURSE ---
between 9:15 and 10;05 pt yelling at staff, unable to redirect, getting self out of wrist restraints multi times, pulled out iv, see mar for meds given, after ativan given, pt finally relaxed and went to sleep, no pulling at things, no tugging, no signs of distress or discomfort
[2020-06-24] MEDS: hetaSTARCH 6%/NACL 500 ML 250 ML IV CONT (11:12)
[2020-06-24] MEDS: dexmedeTOMIDine 400 MCG/100 ML 400 MCG/100 ML BAG 8.69 MCG IV CONT (11:17)
--- NOTE | 2020-06-24 16:20 | PM.IMPN ---
Progress Note: A&P Assessment and Plan (1) Acute encephalopathy: Code(s): G93.40 - Encephalopathy, unspecified Status: Acute Assessment and Plan: The patient appears to be having another manic episode. Currently she is somnolent, sedated, and asleep after receiving multiple antipsychotic medications in the ER. NPO. The patient will be admitted to ICU and started on a Precedex IV drip to help treat the patient's acute agitation. She will need to be placed in a psychiatric unit once she is medically stable. Hr Associate, Dr. Aceves has been consulted. 06/24/20 16:20 69-year-old frail male with history of general anxiety and manic depression patient had been agitated at home and was brought to the emergency department with acute mental status change was not able to provide detail history review of symptom, were patient was quite agitated patient was given Ativan, Zyprexa and Benadryl however patient was quite agitated and was brought to the ICU is placed on Precedex and being monitor, patient had been having constipation however patient started take laxatives and now patient has persistent bowel movement and elevated leukocyte, patient has been accepted at the [facility] for inpatient care however resolution diarrhea and leukocytosis, currently patient is quite somnolent and unable to provide any review of symptoms, discussed with the animal trainer will continue to monitor and further recommendation to follow. (2) Acute diarrhea: Code(s): R19.7 - Diarrhea, unspecified Status: Acute Assessment and Plan: Appears to be secondary to laxative use. Continue IV hydration, Check stool studies, fecal WBC smear, stool culture. (3) Leukocytosis: Qualifiers: Leukocytosis type: unspecified Qualified Code(s): D72.829 - Elevated white blood cell count, unspecified Code(s): D72.829 - Elevated white blood cell count, unspecified Status: Acute Assessment and Plan: May be secondary to dehydration. No signs of acute infection at this time. Monitor CBCd. Lactic acid was normal. (4) Thrombocytosis: Code(s): D47.3 - Essential (hemorrhagic) thrombocythemia Status: Chronic Assessment and Plan: May be reactive. Monitor platelets. (5) Essential (primary) hypertension: Code(s): I10 - Essential (primary) hypertension Status: Chronic Assessment and Plan: Monitor blood pressure. Resume home antihypertensives when appropriate. (6) Gastro-esophageal reflux disease without esophagitis: Code(s): K21.9 - Gastro-esophageal reflux disease without esophagitis Status: Chronic Assessment and Plan: We will administer IV protonix. (7) Major depressive disorder, single episode, unspecified: Qualifiers: Active/Remission status: remission status unspecified Qualified Code(s): F32.9 - Major depressive disorder, single episode, unspecified Code(s): F32.9 - Major depressive disorder, single episode, unspecified Status: Chronic Assessment and Plan: Resume desvenlafaxine when appropriate. (8) Ventral hernia: Qualifiers: Obstruction and gangrene presence: without obstruction or gangrene Qualified Code(s): K43.9 - Ventral hernia without obstruction or gangrene Code(s): K43.9 - Ventral hernia without obstruction or gangrene Status: Acute Assessment and Plan: Easily reducible on exam. Continue surgery recommendations. Subjective Date/time seen: 06/24/20 16:20 69-year-old frail male with history of general anxiety and manic depression patient had been agitated at home and was brought to the emergency department with acute mental status change was not able to provide detail history review of symptom, were patient was quite agitated patient was given Ativan, Zyprexa and Benadryl however patient was quite agitated and was brought to the ICU is placed on Precedex and being monitor, patien
[2020-06-24] MEDS: LORazepam INJ (*CRX) 2 MG/ML VIAL 1 MG IV PUSH (22:25)
[2020-06-24] MEDS: dexmedeTOMIDine 400 MCG/100 ML 400 MCG/100 ML BAG 26.07 MCG IV CONT (22:31)
[2020-06-25] VITALS (23 sets, daily range): BP systolic 77–126; BP diastolic 55–101; PULSE 53–95; RESP 12–24; TEMP 36–36.8; O2SAT 90–100
[2020-06-25] MEDS: dexmedeTOMIDine 400 MCG/100 ML 400 MCG/100 ML BAG 19.55 MCG IV CONT (03:29)
[2020-06-25] MEDS: SODIUM CHLORIDE 0.9% IV 1,000 ML 125 ML IV CONT (03:32)
[2020-06-25] MEDS: LORazepam INJ (*CRX) 2 MG/ML VIAL 1 MG IV PUSH ×5 (03:33→22:38)
[2020-06-25 04:24] LABS: Basophils Percent Auto 0.4 % (0.2-1.2); Eosinophils Absolute Auto 0.3 K/mm3 (0-0.3); Eosinophils Percent Auto 3.4 % (0-4.4); Hematocrit 37.9 % (37.0-47.0); Hemoglobin 11.7 g/dL (12.0-15.0); Immature Granulocyte Absolute 0.01 K/mm3 (0.00-0.031); Immature Granulocyte Percent A 0.1 % (0-0.5); Lymphocytes Percent Auto 16.1 % (18.3-44.2); Mean Corpuscular HGB Conc 30.9 g/dl (32-36); Mean Corpuscular Hemoglobin 27.5 pg (26-34); Mean Platelet Volume 8.6 fl (7.4-10.4); Monocytes Absolute Auto 0.7 K/mm3 (0.1-0.6); Monocytes Percent Auto 9.5 % (2.6-8.5); Neutrophils Absolute Auto 5.2 K/mm3 (1.3-6.7); Neutrophils Percent Auto 70.5 % (45.5-73.1); Platelet Count Result 397 k/mm3 (150-375); Red Blood Count 4.26 M/mm3 (4.2-5.4); Red Cell Distribution Width 15.4 % (11.5-14.5); White Blood Count 7.4 K/mm3 (4.5-10.0)
[2020-06-25 04:37] LABS: Alanine Aminotransferase 23 U/L (4-35); Albumin Level 2.7 g/dL (3.5-5.1); Alkaline Phosphatase 72 U/L (38-126); Anion Gap 1 mmol/L (8-16); Aspartate Amino Transferase 39 U/L (14-36); Bilirubin,Total 0.3 mg/dL (0.2-1.3); Blood Urea Nitrogen 14 mg/dL (7-17); Calcium 7.3 mg/dL (8.4-10.2); Carbon Dioxide 27 mmol/L (22-30); Chloride 108 mmol/L (98-107); Estimated CRCL calculation 93 ml/min; Estimated Glomerular Filt Rate > 60; Glucose 114 mg/dL (65-105); Magnesium 1.9 mg/dL (1.6-2.3); Phosphorus 3.1 mg/dL (2.5-4.5); Potassium 4.4 mmol/L (3.4-5.0); Sodium 136 mmol/L (137-145)
[2020-06-25] MEDS: ENOXAPARIN 40 MG/0.4 ML SYRINGE SUB-Q (08:37)
[2020-06-25] MEDS: PANTOPRAZOLE SODIUM IV 40 MG VIAL IV PUSH (08:37)
[2020-06-25] MEDS: CALCIUM GLUC 1,000 MG/NS 50 ML 1,000 MG/50 ML BAG 100 MG IVPB (08:38)
[2020-06-25] MEDS: DEXTROSE 5%/0.45% SOD CHL 1,000 ML 100 ML IV CONT ×2 (08:38→22:39)
[2020-06-25] MEDS: dexmedeTOMIDine 400 MCG/100 ML 400 MCG/100 ML BAG 26.07 MCG IV CONT ×2 (08:48→12:37)
--- NOTE | 2020-06-25 10:58 | WPDINTPN ---
Progress Note: A&P Assessment and Plan (1) Acute encephalopathy: Code(s): G93.40 - Encephalopathy, unspecified Status: Acute Assessment and Plan: To have be having another manic episode. According the note, the has stated that he can no longer care for her at home. --patient had been agitated, combative since arrival and has been on Precedex infusion and required frequent Ativan to come for agitation and control of behavior -she has also been physically restrained -continue Precedex infusion, will continue -patient takes Zyprexa, Geodon, alprazolam, buspirone, Desvenlafaxine, melatonin at home -continue Ativan p.r.n. -patient will not take any p.o. medications at this time (2) Bipolar disorder: Code(s): F31.9 - Bipolar disorder, unspecified Status: Acute Assessment and Plan: Patient has a history of bipolar disorder with manic episodes, on multiple antipsychotic drugs as above. She has received inpatient psychiatric treatment including ECT multiple times in the past and was recently admitted to [facility] (3) Diarrhea: Code(s): R19.7 - Diarrhea, unspecified Status: Acute Assessment and Plan: Patient was constipated and then was given laxative started to have multiple episodes of diarrhea -CT scan of the abdomen and pelvis done in the ER showed no acute findings -she has not had any loose bowel movements here in ICU -continue IV fluids -WBC has normalized (4) Hypoxia: Code(s): R09.02 - Hypoxemia Status: Acute Assessment and Plan: Multifactorial likely secondary to large hiatal hernia, sedatives atelectasis Chest x-ray reviewed Continue supplemental oxygen Patient at this time will not participate in IS or will get out of bed and sit in a chair (5) Leukocytosis: Code(s): D72.829 - Elevated white blood cell count, unspecified Status: Acute Assessment and Plan: Likely reactive secondary to diarrhea, dehydration. -Lactic acid was normal, - blood pressures have stable Leukocytosis has resolved (6) DVT prophylaxis: Code(s): Z29.9 - Encounter for prophylactic measures, unspecified Status: Acute Assessment and Plan: Lovenox Additional Plan Discussed with and updated him with her condition. I told him that I will try to transfer patient to a facility where both medical and psychiatric care can be provided. We do not have inpatient psychiatry and our staff is not trained to manage patient with isabel or other psychiatric morbidities. Patient was recently admitted at [facility] for both medical and psychiatric care. I have called [facility] to requested transfer patient there for continued of care and inpatient psychiatric evaluation and management. Code status: Full code Critical care time spent: 32 minutes This dictation may have been done utilizing a voice recognition system. Attempts have been made to correct errors. However, there may be uncorrected grammatical, spelling, and recognition errors present. Due to a high probability of clinically significant, life threatening deterioration, the patient required my highest level of preparedness to intervene emergently and I personally spent this critical care time directly and personally managing the patient. This critical care time included obtaining a history; examining the patient; pulse oximetry; ordering and review of studies; arranging urgent treatment with development of a management plan; evaluation of patient's response to treatment; frequent reassessment; and discussions with other providers. It was exclusive of separately billable procedures and treating other patients and teaching time. Please see Assessment and Plan section and the rest of the note for further information on patient assessment and treatment Subjective Date/time seen: 06/25/20 10:58 Patient continues to be on Precedex drip. She required several doses of Ativan over
[2020-06-25 15:43] LABS: Alveolar/Arterial O2 Gradient 562.5 mmHg; Base Excess ABG -1.8 mEq/l (+/-2.0); Fractional Inspired Oxygen 100 %; HCO3 ABG 25.7 mEq/l (22.0-26.0); Oxygen Saturation ABG 96.2 % (95.0-100.0); Oxyhemoglobin 96.2 % THb (90.0-100.0); PCO2 ABG 56.2 mmHg (35.0-45.0); PO2 ABG 94.3 mmHg (80.0-100.0); PO2 FiO2 Ratio Arterial Blood 0.94 %; Total Hemoglobin 12.5 g/dL (12.0-18.0)
[2020-06-25 15:44] LABS: Modified Allen's Test Pass; Site Drawn LEFT RADIAL; pH ABG 7.278 (7.350-7.450)
[2020-06-25 15:45] LABS: Device NON-REBREATHER MASK
--- NOTE | 2020-06-25 17:02 | PM.IMPN ---
Progress Note: A&P Assessment and Plan (1) Acute encephalopathy: Code(s): G93.40 - Encephalopathy, unspecified Status: Acute Assessment and Plan: 06/25/20 17:02 The patient appears to be having another manic episode. Currently she is somnolent, sedated, and asleep after receiving multiple antipsychotic medications in the ER. NPO. The patient will be admitted to ICU and started on a Precedex IV drip to help treat the patient's acute agitation. She will need to be placed in a psychiatric unit once she is medically stable. Recruiter Specialist, Dr. Aceves has been consulted. 06/24/20 16:20 69-year-old frail male with history of general anxiety and manic depression patient had been agitated at home and was brought to the emergency department with acute mental status change was not able to provide detail history review of symptom, were patient was quite agitated patient was given Ativan, Zyprexa and Benadryl however patient was quite agitated and was brought to the ICU is placed on Precedex and being monitor, patient had been having constipation however patient started take laxatives and now patient has persistent bowel movement and elevated leukocyte, patient has been accepted at the [facility] for inpatient care however resolution diarrhea and leukocytosis, currently patient is quite somnolent and unable to provide any review of symptoms, discussed with the [facility] consultant will continue to monitor and further recommendation to follow. 06/25 patient is remains agitated on Percedex unable to wean the patient off, unable to get detailed evaluation for transfer the patient as patient will need inpatient psychiatry care, patient is seen by [facility] consultant and appreciate. (2) Acute diarrhea: Code(s): R19.7 - Diarrhea, unspecified Status: Acute Assessment and Plan: Appears to be secondary to laxative use. Continue IV hydration, Check stool studies, fecal WBC smear, stool culture. (3) Leukocytosis: Qualifiers: Leukocytosis type: unspecified Qualified Code(s): D72.829 - Elevated white blood cell count, unspecified Code(s): D72.829 - Elevated white blood cell count, unspecified Status: Acute Assessment and Plan: May be secondary to dehydration. No signs of acute infection at this time. Monitor CBCd. Lactic acid was normal. (4) Thrombocytosis: Code(s): D47.3 - Essential (hemorrhagic) thrombocythemia Status: Chronic Assessment and Plan: May be reactive. Monitor platelets. (5) Essential (primary) hypertension: Code(s): I10 - Essential (primary) hypertension Status: Chronic Assessment and Plan: Monitor blood pressure. Resume home antihypertensives when appropriate. (6) Gastro-esophageal reflux disease without esophagitis: Code(s): K21.9 - Gastro-esophageal reflux disease without esophagitis Status: Chronic Assessment and Plan: We will administer IV protonix. (7) Major depressive disorder, single episode, unspecified: Qualifiers: Active/Remission status: remission status unspecified Qualified Code(s): F32.9 - Major depressive disorder, single episode, unspecified Code(s): F32.9 - Major depressive disorder, single episode, unspecified Status: Chronic Assessment and Plan: Resume desvenlafaxine when appropriate. (8) Ventral hernia: Qualifiers: Obstruction and gangrene presence: without obstruction or gangrene Qualified Code(s): K43.9 - Ventral hernia without obstruction or gangrene Code(s): K43.9 - Ventral hernia without obstruction or gangrene Status: Acute Assessment and Plan: Easily reducible on exam. Continue surgery recommendations. Subjective Date/time seen: 06/25/20 17:02 The patient appears to be having another manic episode. Currently she is somnolent, sedated, and asleep after receiving multiple antipsychotic medications in the ER. NPO. The derek
[2020-06-25] MEDS: dexmedeTOMIDine 400 MCG/100 ML 400 MCG/100 ML BAG 17.38 MCG IV CONT ×2 (17:12→21:14)
[2020-06-25 17:34] LABS: Alveolar/Arterial O2 Gradient 594.1 mmHg; Base Excess ABG -1.9 mEq/l (+/-2.0); Fractional Inspired Oxygen 100 %; HCO3 ABG 24.5 mEq/l (22.0-26.0); Oxygen Content ABG 16.5 %vol (16.0-22.0); Oxygen Saturation ABG 92.6 % (95.0-100.0); Oxyhemoglobin 92.8 % THb (90.0-100.0); PCO2 ABG 48.8 mmHg (35.0-45.0); PO2 ABG 70.1 mmHg (80.0-100.0); Total Hemoglobin 12.6 g/dL (12.0-18.0); pH ABG 7.319 (7.350-7.450)
[2020-06-25 17:35] LABS: Device NON-REBREATHER MASK; Modified Allen's Test Pass; Site Drawn LEFT RADIAL
[2020-06-25] MEDS: SODIUM CHLORIDE 0.9% IV 500 ML 999 ML IV CONT (21:25)
[2020-06-25 22:12] LABS: SARS-CoV-2 RNA PCR Negative
--- NOTE | 2020-06-26 13:10 | PM.TDS ---
Transfer Discharge Sum: Prov Provider Date of admission: 06/24/20 07:44 Primary care physician: Gianluca Pa MD Admitting clinician: Nicanor Hurtado MD Consults: 06/24/20 04:01 Consult to Physician Routine Comment: Consulting Provider: Babatunde Aceves Reason for consultation: icu Has provider been notified: Yes DS: Admitting Diagnosis Admitting Diagnosis Admitting Diagnosis: Chief Complaint: Diarrhea and agitation+ DS: Discharge Diagnosis Discharge Diagnosis (1) Acute encephalopathy: Code(s): G93.40 - Encephalopathy, unspecified Status: Acute Assessment and Plan: The patient appears to be having another manic episode. Currently she is somnolent, sedated, and asleep after receiving multiple antipsychotic medications in the ER. NPO. The patient will be admitted to ICU and started on a Precedex IV drip to help treat the patient's acute agitation. She will need to be placed in a psychiatric unit once she is medically stable. Di[facility] [employer] Drier, Dr. Aceves has been consulted. (2) Acute diarrhea: Code(s): R19.7 - Diarrhea, unspecified Status: Acute Assessment and Plan: Appears to be secondary to laxative use. Continue IV hydration, Check stool studies, fecal WBC smear, stool culture. (3) Leukocytosis: Qualifiers: Leukocytosis type: unspecified Qualified Code(s): D72.829 - Elevated white blood cell count, unspecified Code(s): D72.829 - Elevated white blood cell count, unspecified Status: Acute Assessment and Plan: May be secondary to dehydration. No signs of acute infection at this time. Monitor CBCd. Lactic acid was normal. (4) Thrombocytosis: Code(s): D47.3 - Essential (hemorrhagic) thrombocythemia Status: Chronic Assessment and Plan: May be reactive. Monitor platelets. (5) Essential (primary) hypertension: Code(s): I10 - Essential (primary) hypertension Status: Chronic Assessment and Plan: Monitor blood pressure. Resume home antihypertensives when appropriate. (6) Gastro-esophageal reflux disease without esophagitis: Code(s): K21.9 - Gastro-esophageal reflux disease without esophagitis Status: Chronic Assessment and Plan: We will administer IV protonix. (7) Major depressive disorder, single episode, unspecified: Qualifiers: Active/Remission status: remission status unspecified Qualified Code(s): F32.9 - Major depressive disorder, single episode, unspecified Code(s): F32.9 - Major depressive disorder, single episode, unspecified Status: Chronic Assessment and Plan: Resume desvenlafaxine when appropriate. (8) Ventral hernia: Qualifiers: Obstruction and gangrene presence: without obstruction or gangrene Qualified Code(s): K43.9 - Ventral hernia without obstruction or gangrene Code(s): K43.9 - Ventral hernia without obstruction or gangrene Status: Acute Assessment and Plan: Easily reducible on exam. Continue surgery recommendations. Transfer Discharge Sum: Med Medications Active and Home Medications: Home Medications alprazolam 1 mg tablet 1 mg PO QID 10/21/19 [History Confirmed 06/24/20] aspirin 81 mg tablet,delayed release 81 mg PO DAILY 10/21/19 [History Confirmed 06/24/20] buspirone 10 mg tablet 20 mg PO TID 10/21/19 [History Confirmed 06/24/20] calcium carbonate 500 mg calcium (1,250 mg) tablet 500 mg PO DAILY 10/21/19 [History Confirmed 06/24/20] cholecalciferol (vitamin D3) 25 mcg (1,000 unit) capsule 25 mcg PO DAILY 10/21/19 [History Confirmed 06/24/20] desvenlafaxine succinate 50 mg tablet,extended release 24 hr 50 mg PO DAILY 10/21/19 [History Confirmed 06/19/20] tbjuqjqz-jsbdxxc-xneg-lutein tablet See Rx Instructions .ROUTE .COMPLEX 10/21/19 [History Confirmed 06/19/20] lisinopril 20 mg PO DAILY 01/08/20 [History Confirmed 06/24/20] pantoprazole 40 mg PO BID 01/08/20 [History Confirmed
== END 2020-06-25 23:07 | disposition home or self-care (01) | DRG 72 ==
LOC: ANHED 22:03 → ANHICU 06-24 04:22
PROVIDERS: Internal Medicine; Admitting Provider Family Medicine; Emergency Provider Emergency Medicine; PCP Family Medicine; Visit Provider Family Medicine
DX: G93.40 Encephalopathy, unspecified (principal); Z20.822 Contact with and (suspected) exposure to COVID-19; F31.9 Bipolar disorder, unspecified; F41.1 Generalized anxiety disorder; R19.7 Diarrhea, unspecified; E86.0 Dehydration; D72.829 Elevated white blood cell count, unspecified; D47.3 Essential (hemorrhagic) thrombocythemia; I10 Essential (primary) hypertension; K21.9 Gastro-esophageal reflux disease without esophagitis; K43.9 Ventral hernia without obstruction or gangrene; E78.5 Hyperlipidemia, unspecified; G14 Postpolio syndrome; Z28.21 Immunization not carried out because of patient refusal; Z79.899 Other long term (current) drug therapy
CPT/HCPCS: 36415; 36600; 51701; 70450; 71045; 74176; 80048; 80053; 80307; 81001; 82805; 82948; 83605; 83735; 84100; 84443; 85025; 85610; 85730; 87040; 87077; 87086; 87088; 87186; 93005; 96365; 96366; 96372; 99285; C9113; C9803; G0378; J0610; J1200; J1630; J1650; J2060; J7030; J7040; U0003; U0005

== ENCOUNTER 2020-08-08 07:52 | Outpatient (CLI) | payer MEDICARE, OTHER, SELFPAY ==
[2020-08-08 08:58] LABS: Anion Gap 8 mmol/L (8-16); Blood Urea Nitrogen 11 mg/dL (7-17); Calcium 9.2 mg/dL (8.4-10.2); Carbon Dioxide 28 mmol/L (22-30); Chloride 99 mmol/L (98-107); Estimated Glomerular Filt Rate > 60; Glucose 138 mg/dL (65-105); Phosphorus 2.9 mg/dL (2.5-4.5); Potassium 4.2 mmol/L (3.4-5.0); Sodium 135 mmol/L (137-145)
== END 2020-08-08 07:53 | disposition home or self-care (01) ==
PROVIDERS: PCP Internal Medicine; Referring Provider Internal Medicine; Visit Provider Internal Medicine Nephrology
DX: E87.1 Hypo-osmolality and hyponatremia (principal)
CPT/HCPCS: 36415; 80069; 99212; G0463

== ENCOUNTER 2020-09-03 07:31 | Outpatient (CLI) | payer MEDICARE, OTHER, SELFPAY ==
[2020-09-03 08:53] LABS: Albumin Level 4.3 g/dL (3.5-5.1); Anion Gap 10 mmol/L (8-16); Blood Urea Nitrogen 9 mg/dL (7-17); Calcium 9.4 mg/dL (8.4-10.2); Carbon Dioxide 26 mmol/L (22-30); Chloride 98 mmol/L (98-107); Estimated Glomerular Filt Rate > 60; Glucose 114 mg/dL (65-105); Phosphorus 3.5 mg/dL (2.5-4.5); Potassium 3.7 mmol/L (3.4-5.0); Sodium 134 mmol/L (137-145)
== END 2020-09-03 07:32 | disposition home or self-care (01) ==
PROVIDERS: PCP Internal Medicine; Visit Provider Internal Medicine Nephrology
DX: E87.1 Hypo-osmolality and hyponatremia (principal)
CPT/HCPCS: 36415; 80069; 99212; G0463

== ENCOUNTER 2020-10-26 07:42 | Outpatient (CLI) | payer MEDICARE, OTHER, SELFPAY ==
[2020-10-26 08:37] LABS: Hematocrit 43.1 % (37.0-47.0); Hemoglobin 13.8 g/dL (12.0-15.0); Mean Corpuscular Hemoglobin 26.7 pg (26-34); Mean Corpuscular Volume 83.5 fl (80-100); Mean Platelet Volume 9.2 fl (7.4-10.4); Platelet Count Result 382 k/mm3 (150-375); Red Blood Count 5.16 M/mm3 (4.2-5.4); Red Cell Distribution Width 14.7 % (11.5-14.5)
[2020-10-26 08:54] LABS: Add Urine Microscopic? YES; Appearance Urine Cloudy (Clear); Bacteria Urine 3+ /hpf; Bilirubin Urine Negative (Negative); Blood Urine Negative (Negative); Color Urine Yellow (Yellow); Glucose Urine UA Negative (Negative); Ketones Urine Negative (Negative); Leukocyte Esterase Ur Trace LEU/UL (NEGATIVE); Mucus Urine Rare /lpf; Nitrate Urine Negative (Negative); Protein Urine Negative (Negative); RBC Urine 0-2 /hpf (0-2); Specific Grav Ur 1.012 (1.001-1.035); Squamous Epithelial Cell Urine Many /hpf (Few); Urobilinogen Urine Negative mg/dL (<2.0)
[2020-10-26 08:56] LABS: LDL Cholesterol Direct 123 mg/dL
[2020-10-26 09:00] LABS: Alanine Aminotransferase 15 U/L (4-35); Albumin Level 4.3 g/dL (3.5-5.1); Alkaline Phosphatase 93 U/L (38-126); Anion Gap 8 mmol/L (8-16); Aspartate Amino Transferase 22 U/L (14-36); Bilirubin,Total 0.4 mg/dL (0.2-1.3); Blood Urea Nitrogen 10 mg/dL (7-17); Calcium 9.2 mg/dL (8.4-10.2); Carbon Dioxide 24 mmol/L (22-30); Chloride 103 mmol/L (98-107); Cholesterol 242 mg/dL (0-200); Estimated Glomerular Filt Rate > 60; Glucose 96 mg/dL (65-105); HDL Direct 72 mg/dL; Potassium 4.2 mmol/L (3.4-5.0); Sodium 135 mmol/L (137-145); Triglycerides 163 mg/dL (<150)
== END 2020-10-26 07:43 | disposition home or self-care (01) ==
PROVIDERS: PCP Internal Medicine; Visit Provider Internal Medicine
DX: E55.9 Vitamin D deficiency, unspecified (principal); I10 Essential (primary) hypertension
CPT/HCPCS: 36415; 80053; 80061; 81001; 84443; 85027; 99212; G0463

== ENCOUNTER 2020-11-13 07:49 | Outpatient (CLI) | payer MEDICARE, OTHER, SELFPAY ==
[2020-11-13 08:37] LABS: Albumin Level 4.4 g/dL (3.5-5.1); Anion Gap 8 mmol/L (8-16); Blood Urea Nitrogen 9 mg/dL (7-17); Calcium 9.4 mg/dL (8.4-10.2); Carbon Dioxide 26 mmol/L (22-30); Chloride 99 mmol/L (98-107); Estimated Glomerular Filt Rate > 60; Glucose 89 mg/dL (65-110); Phosphorus 3.9 mg/dL (2.5-4.5); Potassium 4.1 mmol/L (3.4-5.0); Sodium 133 mmol/L (137-145)
== END 2020-11-13 07:50 | disposition home or self-care (01) ==
LOC: ANHLAB 07:52 → ANHVASCINF 07:56
PROVIDERS: PCP Internal Medicine; Referring Provider Internal Medicine; Visit Provider Internal Medicine Nephrology
DX: E87.1 Hypo-osmolality and hyponatremia (principal); I10 Essential (primary) hypertension
CPT/HCPCS: 36415; 80069; 99212; G0463

== ENCOUNTER 2021-01-14 07:54 | Outpatient (CLI) | payer MEDICARE, OTHER, SELFPAY ==
[2021-01-14 08:44] LABS: Albumin Level 4.2 g/dL (3.5-5.1); Anion Gap 6 mmol/L (8-16); Blood Urea Nitrogen 12 mg/dL (7-17); Calcium 9.3 mg/dL (8.4-10.2); Carbon Dioxide 30 mmol/L (22-30); Chloride 100 mmol/L (98-107); Estimated Glomerular Filt Rate > 60; Glucose 86 mg/dL (65-110); Phosphorus 3.9 mg/dL (2.5-4.5); Potassium 3.9 mmol/L (3.4-5.0); Sodium 136 mmol/L (137-145)
== END 2021-01-14 07:55 | disposition home or self-care (01) ==
LOC: ANHLAB 07:57
PROVIDERS: PCP Internal Medicine; Visit Provider Internal Medicine Nephrology
DX: E87.1 Hypo-osmolality and hyponatremia (principal); I10 Essential (primary) hypertension
CPT/HCPCS: 36415; 80069; 99212; G0463

== ENCOUNTER 2021-03-19 13:25 | Outpatient (NON) | payer MEDICARE, OTHER, SELFPAY ==
[2021-03-19 14:01] LABS: Add Urine Microscopic? YES; Appearance Urine Cloudy (Clear); Bilirubin Urine Negative (Negative); Blood Urine Negative (Negative); Color Urine Amber (Yellow); Glucose Urine UA Negative (Negative); Hyaline Casts Urine 20-29 /lpf; Ketones Urine 1+ mg/dL (Negative); Leukocyte Esterase Ur Negative LEU/UL (Negative); Mucus Urine Heavy /lpf; Nitrate Urine Negative (Negative); Protein Urine 2+ mg/dL (Negative); Specific Grav Ur 1.029 (1.001-1.035); Squamous Epithelial Cell Urine Many /hpf (Few); Transitional Epi Cells Urine Rare /hpf (None Seen)
== END 2021-03-19 13:26 | disposition home or self-care (01) ==
PROVIDERS: PCP Internal Medicine; Visit Provider Internal Medicine
DX: R82.90 Unspecified abnormal findings in urine (principal)
CPT/HCPCS: 81001

== ENCOUNTER 2021-04-08 15:42 | Outpatient (CLI) | payer MEDICARE, OTHER, SELFPAY ==
--- NOTE | ~2021-04-08 | XR_ITS ---
XR chest 2V 04/08/2021 16:27 Indication: Shortness of breath Procedure: 2 view chest Comparison: Comparison to multiple prior studies sequentially, with oldest reviewed study dated 06/2014. Findings: Large hiatal hernia. Heart size is normal. Bibasilar atelectasis. No pleural effusion or pn eumothorax. No acute osseous abnormality. There is a lower thoracic burst fracture, likely subacute o r chronic. Impression: 1: Bibasilar atelectasis. 2: Large hiatal hernia. Reviewed, dictated and finalized at location A. NDENCY COUNSELOR Impression: 1: Bibasilar atelectasis. 2: Large hiatal hernia.
[2021-04-08 16:21] LABS: Basophils Percent Auto 0.4 % (0.2-1.2); Eosinophils Percent Auto 0.2 % (0-4.4); Hematocrit 43.9 % (37.0-47.0); Hemoglobin 14.9 g/dL (12.0-15.0); Immature Granulocyte Absolute 0.02 K/mm3 (0.00-0.031); Immature Granulocyte Percent A 0.2 % (0-0.5); Lymphocytes Absolute Auto 2.48 K/mm3 (0.9-3.2); Lymphocytes Percent Auto 26.7 % (18.3-44.2); Mean Corpuscular HGB Conc 33.9 g/dl (32-36); Mean Corpuscular Hemoglobin 28.3 pg (26-34); Mean Corpuscular Volume 83.5 fl (80-100); Monocytes Absolute Auto 0.9 K/mm3 (0.1-0.6); Neutrophils Absolute Auto 5.8 K/mm3 (1.3-6.7); Neutrophils Percent Auto 62.5 % (45.5-73.1); Platelet Count Result 345 k/mm3 (150-375); Red Blood Count 5.26 M/mm3 (4.2-5.4); Red Cell Distribution Width 13.8 % (11.5-14.5); White Blood Count 9.3 K/mm3 (4.5-10.0)
[2021-04-08 16:29] LABS: Alanine Aminotransferase 16 U/L (4-35); Albumin Level 4.7 g/dL (3.5-5.1); Alkaline Phosphatase 87 U/L (38-126); Anion Gap 10 mmol/L (8-16); Aspartate Amino Transferase 24 U/L (14-36); Bilirubin,Total 0.5 mg/dL (0.2-1.3); Blood Urea Nitrogen 11 mg/dL (7-17); Calcium 9.7 mg/dL (8.4-10.2); Carbon Dioxide 23 mmol/L (22-30); Chloride 96 mmol/L (98-107); Estimated Glomerular Filt Rate > 60; Glucose 149 mg/dL (65-110); Potassium 3.8 mmol/L (3.4-5.0); Sodium 129 mmol/L (137-145)
== END 2021-04-08 15:43 | disposition home or self-care (01) ==
LOC: ANHLAB 15:47
PROVIDERS: PCP Internal Medicine; Visit Provider Internal Medicine
DX: R41.82 Altered mental status, unspecified (principal); R06.02 Shortness of breath; J98.11 Atelectasis; K44.9 Diaphragmatic hernia without obstruction or gangrene
CPT/HCPCS: 36415; 71046; 80053; 84443; 85025; 99212; G0463

== ENCOUNTER 2021-04-09 10:48 | Outpatient (NON) | payer MEDICARE, OTHER, SELFPAY ==
[2021-04-09 11:54] LABS: Add Urine Microscopic? NO; Appearance Urine Clear (Clear); Bilirubin Urine Negative (Negative); Blood Urine Negative (Negative); Color Urine Yellow (Yellow); Glucose Urine UA Negative (Negative); Ketones Urine Negative (Negative); Leukocyte Esterase Ur Negative LEU/UL (Negative); Nitrate Urine Negative (Negative); Protein Urine Negative (Negative); Specific Grav Ur 1.015 (1.001-1.035); Urobilinogen Urine Negative mg/dL (<2.0)
== END 2021-04-09 10:49 | disposition home or self-care (01) ==
PROVIDERS: PCP Internal Medicine; Visit Provider Internal Medicine
DX: R82.90 Unspecified abnormal findings in urine (principal)
CPT/HCPCS: 81003

== ENCOUNTER 2021-04-17 08:04 | Outpatient (CLI) | payer MEDICARE, OTHER, SELFPAY ==
[2021-04-17 09:07] LABS: Albumin Level 4.3 g/dL (3.5-5.1); Anion Gap 8 mmol/L (8-16); Blood Urea Nitrogen 8 mg/dL (7-17); Calcium 9.4 mg/dL (8.4-10.2); Carbon Dioxide 26 mmol/L (22-30); Chloride 97 mmol/L (98-107); Estimated Glomerular Filt Rate > 60; Glucose 101 mg/dL (65-110); Phosphorus 3.8 mg/dL (2.5-4.5); Potassium 4.2 mmol/L (3.4-5.0); Sodium 131 mmol/L (137-145)
== END 2021-04-17 08:05 | disposition home or self-care (01) ==
PROVIDERS: PCP Internal Medicine; Visit Provider Internal Medicine Nephrology
DX: E87.1 Hypo-osmolality and hyponatremia (principal); I10 Essential (primary) hypertension
CPT/HCPCS: 36415; 80069; 99212; G0463

== ENCOUNTER 2023-11-19 04:04 | Inpatient (IN) | payer MEDICARE, OTHER, SELFPAY ==
[2023-11-19] VITALS (12 sets, daily range): BP systolic 135–160; BP diastolic 74–105; PULSE 92–103; RESP 16–22; TEMP 36.3–37.4; O2SAT 93–100; BMI 32.1
--- NOTE | 2023-11-19 04:09 | ECG_ITS ---
Test Date: 2023-11-19 05:00:21 Measurements Intervals [place] Rate: 97 P: 50 AL: 186 QRS: 24 QRSD: 86 T: 30 QT: 339 QTc: 432 Interpretive Statements SINUS RHYTHM NONSPECIFIC ST & T-WAVE ABNORMALITY- ANTEROLAT/INF LEADS BASELINE ARTIFACT- I, II, III, AVR, AVL, AVF, V1-V2 BORDERLINE ECG No previous ECG available for comparison Electronically Signed On 11-19-2023 06:11:39 CDT by Dieter Hernández D.O.
[2023-11-19 04:30] LABS: Basophils Percent Auto 0.4 % (0.2-1.2); Eosinophils Absolute Auto 0.1 K/mm3 (0-0.3); Eosinophils Percent Auto 0.9 % (0-4.4); Hematocrit 43.1 % (37.0-47.0); Hemoglobin 13.3 g/dL (12.0-15.0); Immature Granulocyte Absolute 0.01 K/mm3 (0.00-0.031); Immature Granulocyte Percent A 0.1 % (0-0.5); Lymphocytes Percent Auto 29.8 % (18.3-44.2); Mean Corpuscular HGB Conc 30.9 g/dl (32-36); Mean Corpuscular Hemoglobin 26.9 pg (26-34); Mean Corpuscular Volume 87.2 fl (80-100); Mean Platelet Volume 9.3 fl (7.4-10.4); Monocytes Absolute Auto 0.8 K/mm3 (0.1-0.6); Monocytes Percent Auto 10.4 % (2.6-8.5); Neutrophils Absolute Auto 4.7 K/mm3 (1.3-6.7); Neutrophils Percent Auto 58.4 % (45.5-73.1); Platelet Count Result 367 k/mm3 (150-375); Red Blood Count 4.94 M/mm3 (4.2-5.4); Red Cell Distribution Width 14.3 % (11.5-14.5); White Blood Count 8.1 K/mm3 (4.5-10.0)
[2023-11-19 04:47] LABS: Alanine Aminotransferase 12 U/L (6-35); Albumin Level 4.5 g/dL (3.5-5.1); Alkaline Phosphatase 73 U/L (38-126); Anion Gap 12 mmol/L (4-12); Aspartate Amino Transferase 26 U/L (14-36); Bilirubin,Total 0.7 mg/dL (0.2-1.3); Blood Urea Nitrogen 13 mg/dL (7-17); Calcium 9.3 mg/dL (8.4-10.2); Carbon Dioxide 32 mmol/L (22-30); Chloride 90 mmol/L (98-107); Estimated Glomerular Filt Rate > 60; Glucose 94 mg/dL (65-110); Potassium 4.9 mmol/L (3.4-5.0); Sodium 134 mmol/L (137-145)
[2023-11-19 04:48] LABS: Lactic Acid Reflex 2.8 mmol/L (0.7-2.0)
[2023-11-19 04:51] LABS: Prothrombin Time 13.8 Seconds (11.1-14.7)
[2023-11-19 05:02] LABS: Appearance Urine Cloudy (Clear); Bilirubin Urine Negative (Negative); Blood Urine Negative (Negative); Color Urine Yellow (Yellow); Glucose Urine UA Negative (Negative); Ketones Urine Trace mg/dL (Negative); Leukocyte Esterase Ur 2+ LEU/UL (Negative); Need Manual Microscopic Reviewed; Nitrate Urine Negative (Negative); Non Pathogenic Casts 0-2; Protein Urine 1+ mg/dL (Negative); Specific Grav Ur 1.018 (1.001-1.035); Squamous Epithelial Cell Urine None Seen /hpf (Few); WBC Urine >100 /hpf (0-3)
[2023-11-19 05:03] LABS: Add Urine Microscopic? YES; Bacteria Urine 2+ /hpf
--- NOTE | 2023-11-19 05:31 | ED.GENADULT ---
HPI - General Adult General Chief complaint: Altered Mental Status Stated complaint: COMBATIVE, AGITATED, UNCOOPERATIVE WITH CARE, AMS Time Seen by Provider: 11/19/23 04:45 Source: patient, EMS and RN notes reviewed Mode of arrival: EMS Limitations: altered mental status and dementia History of Present Illness HPI narrative: 73-year-old female presents with report of altered mental status, being combative, agitated, and uncooperative to the point of being violent and throwing objects and hitting staff members at the nursing facility where she resides. At baseline is report that she is alert and oriented x1 but has become alert oriented times 0, not answering questions and being nonverbal. She was taking off her oxygen which she is supposed to wear chronically at baseline she was also taking off her clothes. Patient initially nonverbal only making sounds and moans. However, upon my direct observation assessment, she is sitting upright in bed and able answer simple questions. She denies any headache, chest pain, or abdominal pain. She is naming objects that she sees and states scary...dark. Related Data Home Medications Medication Instructions Recorded Confirmed sodium chloride 1 gram tablet 0.5 g PO BID 06/24/20 11/19/23 cholecalciferol (vitamin D3) 125 125 mcg PO DAILY 07/24/20 11/19/23 mcg (5,000 unit) capsule furosemide 20 mg tablet 10 mg PO QAM 07/24/20 11/19/23 Lactobacillus rhamnosus GG 10 1 cap PO DAILY 11/19/23 11/19/23 billion cell-inulin 200 mg capsule ([facility] [employer] [facility]) albuterol sulfate 90 mcg/actuation 2 puff inhalation QID PRN Wheezing 11/19/23 11/19/23 aerosol inhaler calcium carbonate 250 mg-vitamin 1 tablet PO BID 11/19/23 11/19/23 D3 3.125 mcg (125 unit) tablet (Oyster Shell Calcium-Vitamin D3) divalproex 125 mg tablet,delayed 125 mg PO BID 11/19/23 11/19/23 release fluoxetine 40 mg capsule 40 mg PO DAILY 11/19/23 11/19/23 ipratropium 0.5 mg-albuterol 3 mg 3 ml inhalation TID 11/19/23 11/19/23 (2.5 mg base)/3 mL nebulization soln lamotrigine 100 mg tablet 100 mg PO BID 11/19/23 11/19/23 lurasidone 60 mg tablet 60 mg PO DAILY 11/19/23 11/19/23 metoclopramide HCl 10 mg tablet 10 mg PO TIDWM 11/19/23 11/19/23 (Reglan) Allergies Allergy/AdvReac Type Severity Reaction Status Date / Time adhesive Allergy Severe Rash Verified 11/19/23 09:13 morphine Allergy Severe Swelling Verified 11/19/23 09:13 procaine Allergy Severe Agitated Verified 11/19/23 09:13 [facility] Past Medical History Medical History Adult failure to thrive Bipolar disorder Chronic respiratory failure with hypoxia Essential (primary) hypertension Gastro-esophageal reflux disease with esophagitis, without bleeding Generalized anxiety disorder Hyperlipidemia Hypo-osmolality and hyponatremia Hyponatremia Hypoxemia Major depressive disorder, single episode, unspecified Muscle weakness (generalized) Need for assistance with personal care Pain of left lower extremity Post-polio syndrome Unsteadiness on feet Wellness examination Wheezing Surgical History Surgical History H/O: hysterectomy History of arthroplasty of both wrists right wrist History of hip surgery Partial left hip replacement at [place] Status post electroconvulsive therapy Family History Family History Father Hypertension Family history of diabetes mellitus in first degree relative Family history of lung cancer Mother Family history of thyroid disease Social History Social History Social History: Pablo (Crow). She has two children. She is retired. She used to work at a [employer] and in the [employer] at [employer]. She is a lifelong non-smoker. She reports occasional alcohol use and denies illicit substa
[2023-11-19] MEDS: SODIUM CHLORIDE 0.9% IV 1,000 ML 999 ML IV CONT (05:46)
[2023-11-19 07:34] LABS: Reflex Lactic Acid Yes or No Add Lactic
--- NOTE | 2023-11-19 09:04 | PC.NURSE ---
This patient, Kim Samayoa, was admitted to [facility] Surg Room 317-02 at 08:44. Patient/family oriented to hospital policies and general routines including ID bracelet, bed and alarms, visiting hours, pain management, procedures, bathroom and other care routines, personal items, smoking policy, room service/diet, and visiting hours. Information on how to activate the Rapid Response Team has been discussed. Patient/Family are encouraged to report perceived risks to care and to ask questions if they do not understand what they are told or what they should do.
[2023-11-19] MEDS: LACTATED RINGERS 1,000 ML 125 ML IV CONT (10:35)
--- NOTE | 2023-11-19 13:57 | PM.IMHP ---
H&P: HPI History of Present Illness Date/Time: 11/19/23 13:57 Chief Complaint: Altered mental status Narrative: This is a 73-year-old female with past medical history post-polio syndrome (chronic respiratory failure, wheelchair dependent), bipolar disorder, generalized anxiety disorder, major depressive disorder, hypertension, chronic hyponatremia, GERD who presents from her nursing facility as she had become uncooperative combative and throwing objects and hitting staff members. She is usually A&O x1 reportedly became A&O times 0 not answering questions and being nonverbal. She was taking off her oxygen and reported to be taking off her clothes. This history is obtained from the ER physician's report. Upon arrival to the ER the patient was only making sounds and moans. Later on, she was sitting upright in bed and able to answer simple questions. Upon the securities underwriter's examination in room 317 after she was admitted, is sitting up in bed in no acute distress. He is obviously confused but pleasant. She has wandering thoughts, distracted speech. She is a poor historian but does not complain of anything. ER evaluation demonstrated a hemodynamically will patient with sodium 134, lactic acid 2.8 9 down to 1.5 status post fluid resuscitation. She was given ceftriaxone 1 g IV x1. As her urinalysis was positive for greater than 100 wbc's, leukocyte esterase positive. Admitted on 11/19/2023 for observation. Review of Systems Review of Systems: All systems reviewed & are unremarkable except as noted in HPI and below (Subjective) ROS unobtainable: Yes unobtainable due to mental status PMFSH Past Medical History Medical History Adult failure to thrive Bipolar disorder Chronic respiratory failure with hypoxia Essential (primary) hypertension Gastro-esophageal reflux disease with esophagitis, without bleeding Generalized anxiety disorder Hyperlipidemia Hypo-osmolality and hyponatremia Hyponatremia Hypoxemia Major depressive disorder, single episode, unspecified Muscle weakness (generalized) Need for assistance with personal care Pain of left lower extremity Post-polio syndrome Unsteadiness on feet Wellness examination Wheezing Surgical History Surgical History H/O: hysterectomy History of arthroplasty of both wrists right wrist History of hip surgery Partial left hip replacement at [place] Status post electroconvulsive therapy Family History Family History Father Hypertension Family history of diabetes mellitus in first degree relative Family history of lung cancer Mother Family history of thyroid disease Social History Social History Social History: Pablo (Crow). She has two children. She is retired. She used to work at a [employer] and in [employer] at [employer]. She is a lifelong non-smoker. She reports occasional alcohol use and denies illicit substance use. She previously wished to be a full code (2020) but NH documentation/POLST signed 11/06/23 indicates no CPR (DNAR). She has designated her Crow as her surrogate decision maker. Smoking packs per day: 1 Smoking cigarettes per day: 20.0 Years smoked: 35 Smoking pack-years: 35.00 Smoking status: Never smoker Tobacco type: cigarettes Smoking end date: 04/27/08 Alcohol intake: never Alcohol use details: She occasionally drinks 1-2 [employer] Lights with dinner. Substance use: never Substance use type: does not use Do You Feel Safe in your Home?: Yes Lack of Transportation: No Lack of Food: Never True Current Housing: I Have Housing Concerned About Future Housing: No Difficulty Paying Gas/Electric Bills: No Difficulty Paying for Meds: No Currently Unemployed: No Education: Decline to Answer Diffic
[2023-11-19] MEDS: PANTOPRAZOLE 40 MG TABLET PO (16:30)
[2023-11-19] MEDS: SACCHAROMYCES BOULARDII 250 MG CAPSULE PO (16:30)
[2023-11-19] MEDS: DIVALPROEX SODIUM DR 125 MG TABEC PO (16:30)
[2023-11-19] MEDS: CALCIUM/VITAMIN D 250 MG/3.125 MCG (125 I.U.) TABLET 1 TABLET PO (16:30)
[2023-11-19] MEDS: lamoTRIgine 100 MG TABLET PO (16:30)
[2023-11-19] MEDS: SODIUM CHLORIDE 500 MG TABLET PO (16:30)
[2023-11-19] MEDS: METOCLOPRAMIDE HCL 10 MG TABLET PO (16:30)
[2023-11-20 06:00] VITALS: BP 136/83; PULSE 82; RESP 18; TEMP 36.1; O2SAT 98
[2023-11-20 06:27] LABS: Basophils Percent Auto 0.4 % (0.2-1.2); Eosinophils Absolute Auto 0.1 K/mm3 (0-0.3); Eosinophils Percent Auto 1.5 % (0-4.4); Hematocrit 38.4 % (37.0-47.0); Hemoglobin 12.4 g/dL (12.0-15.0); Immature Granulocyte Absolute 0.01 K/mm3 (0.00-0.031); Immature Granulocyte Percent A 0.2 % (0-0.5); Lymphocytes Absolute Auto 1.63 K/mm3 (0.9-3.2); Mean Corpuscular HGB Conc 32.3 g/dl (32-36); Mean Corpuscular Hemoglobin 28.1 pg (26-34); Mean Corpuscular Volume 86.9 fl (80-100); Mean Platelet Volume 9.8 fl (7.4-10.4); Monocytes Absolute Auto 0.6 K/mm3 (0.1-0.6); Monocytes Percent Auto 11.8 % (2.6-8.5); Neutrophils Absolute Auto 2.9 K/mm3 (1.3-6.7); Neutrophils Percent Auto 55.1 % (45.5-73.1); Platelet Count Result 302 k/mm3 (150-375); Red Blood Count 4.42 M/mm3 (4.2-5.4); Red Cell Distribution Width 14.4 % (11.5-14.5); White Blood Count 5.3 K/mm3 (4.5-10.0)
[2023-11-20 06:59] LABS: Anion Gap 7 mmol/L (4-12); Blood Urea Nitrogen 5 mg/dL (7-17); Calcium 9.2 mg/dL (8.4-10.2); Carbon Dioxide 32 mmol/L (22-30); Chloride 93 mmol/L (98-107); Estimated CRCL calculation 98 ml/min; Estimated Glomerular Filt Rate > 60; Glucose 91 mg/dL (65-110); Magnesium 1.5 mg/dL (1.6-2.3); Potassium 4.2 mmol/L (3.4-5.0); Sodium 132 mmol/L (137-145)
--- NOTE | 2023-11-20 07:34 | PM.IMPN ---
Progress Note: A&P Assessment and Plan (1) Acute encephalopathy: Code(s): G93.40 - Encephalopathy, unspecified Status: Acute Assessment and Plan: Patient has a complicated psychiatric history. She was at our facility in 2020 and subsequently transferred to an inpatient psych unit for severe psychosis. Her acute toxic encephalopathy likely due to complicated UTI. She is back to her baseline. She is a very pleasant woman with distracted speech. Treat UTI (see #3) -Attempt to minimize nocturnal disturbances (avoid unnecessary lab draws, vital signs, nighttime medications). - Promote regular sleep-wake cycle. - Provide orienting stimuli including clock, calendar, lights on during the day and off at nighttime, and minimal staff changes. Minimize the use of tubes and drains. Address sensory deficits including vision and hearing. Ensure no bowel or bladder retention and call with concerns. - Mobilize as much possible, ideally out of bed for meals if able. (2) Lactic acidosis: Code(s): E87.20 - Acidosis, unspecified Status: Acute Assessment and Plan: Lactic acid 2.8 on admission. Received fluid resuscitation and lactic acid has since returned to normal limits. 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 (5) Essential (primary) hypertension: Code(s): I10 - Essential (primary) hypertension Status: Chronic Assessment and Plan: Chronic, well controlled. - Continue to monitor Time Spent With Patient Time with patient: 25 - 35 minutes Subjective Date/time seen: 11/20/23 07:34 Interval history: 73-year-old female with past medical history post-polio syndrome (chronic respiratory failure, wheelchair dependent), bipolar disorder, generalized anxiety disorder, major depressive disorder, hypertension, chronic hyponatremia, GERD who presents from her nursing facility as she had become uncooperative combative and throwing objects and hitting staff members. Patient is pleasant sitting up in bed with son at bedside. Per patient okay to discuss care plan wit son present. Patient has no complaints, denying chest pain, shortness of breath, nausea/vomiting, dysuria, hematuria, burning sensation and changes in bowel. During assessment patient is at baseline. Will continue to treat the UTI pending cultures. PT/OT ordered. Review of Systems Review of Systems: All systems reviewed & are unremarkable except as noted in HPI and below Exam Narrative: AF HR 84 RR 16 SpO2 93 (2L baseline) BP 118/67 General: female in no acute respiratory distress who is nontoxic appearing, sitting up in bed HEENT: Normocephalic. Atraumatic. Extraocular movement intact. Sclera clear and anicteric. No facial asymmetry. Chest: Lungs are clear to auscultation bilaterally. No wheezes or crackles. CV: Heart was regular rate and rhythm. S1-S2. No murmurs, gallops, or rubs. Abd: Abdomen was soft. Nontender. Nondistended. Positive bowel sounds. No organomegaly or masses. Ext: No clubbing, cyanosis, or edema. 2+ DP pulses bilaterally. Neuro: Patient is alert and oriented at baseline. Cranial nerves 2-12 are intact. Speech is clear. Psych: Normal mood and affect. Patient is pleasant and cooperative. Skin: Warm and dry. No rashes noted. Objective Data Vital Signs Vital Signs: Vital Signs - 24 hr 11/19/23 08:11 11/19/23 09:07 11/19/23 12:29 Temperature 98.0 F Pulse Rat
[2023-11-20 07:59] VITALS: O2SAT 96
[2023-11-20 09:50] VITALS: O2SAT 96
[2023-11-20] MEDS: SODIUM CHLORIDE 500 MG TABLET PO ×2 (09:50→16:43)
[2023-11-20] MEDS: DIVALPROEX SODIUM DR 125 MG TABEC PO ×2 (09:50→16:42)
[2023-11-20] MEDS: lamoTRIgine 100 MG TABLET PO ×2 (09:50→16:43)
[2023-11-20] MEDS: CHOLECALCIFEROL 5,000 UNITS TABLET 5000 UNITS PO (09:50)
[2023-11-20] MEDS: SACCHAROMYCES BOULARDII 250 MG CAPSULE PO ×3 (09:51→16:43)
[2023-11-20] MEDS: METOCLOPRAMIDE HCL 10 MG TABLET PO ×3 (09:51→16:42)
[2023-11-20] MEDS: FLUoxetine HCL 20 MG CAPSULE 40 MG PO (09:51)
[2023-11-20] MEDS: PANTOPRAZOLE 40 MG TABLET PO ×2 (09:53→16:43)
[2023-11-20] MEDS: ENOXAPARIN 40 MG/0.4 ML SYRINGE SUB-Q (09:56)
[2023-11-20] MEDS: ACETAMINOPHEN 325 MG TABLET 650 MG PO ×2 (10:06→16:43)
[2023-11-20] MEDS: CALCIUM/VITAMIN D 250 MG/3.125 MCG (125 I.U.) TABLET 1 TABLET PO ×2 (11:06→16:43)
[2023-11-20] MEDS: MAGNESIUM SULF 2 GM/WATER 50ML 2 GM/50 ML BAG IVPB (11:06)
[2023-11-20 14:00] VITALS: BP 118/67; PULSE 84; RESP 16; TEMP 35.6; O2SAT 93
[2023-11-20 20:00] VITALS: PULSE 84; RESP 16; O2SAT 93
[2023-11-20 20:13] VITALS: BP 101/66; PULSE 82; RESP 18; TEMP 36.1; O2SAT 100
[2023-11-21] VITALS (7 sets, daily range): BP systolic 114–142; BP diastolic 40–87; PULSE 84–96; RESP 12–16; TEMP 36.1–36.5; O2SAT 95–97
[2023-11-21] MEDS: FLUoxetine HCL 20 MG CAPSULE 40 MG PO (07:52)
[2023-11-21] MEDS: lamoTRIgine 100 MG TABLET PO ×2 (07:52→16:32)
[2023-11-21] MEDS: CALCIUM/VITAMIN D 250 MG/3.125 MCG (125 I.U.) TABLET 1 TABLET PO ×2 (07:52→16:32)
[2023-11-21] MEDS: SACCHAROMYCES BOULARDII 250 MG CAPSULE PO ×3 (07:52→16:32)
[2023-11-21] MEDS: DIVALPROEX SODIUM DR 125 MG TABEC PO ×2 (07:52→16:32)
[2023-11-21] MEDS: PANTOPRAZOLE 40 MG TABLET PO ×2 (07:52→16:32)
[2023-11-21] MEDS: METOCLOPRAMIDE HCL 10 MG TABLET PO ×3 (07:53→16:32)
[2023-11-21] MEDS: SODIUM CHLORIDE 500 MG TABLET PO ×2 (07:53→16:32)
[2023-11-21] MEDS: ENOXAPARIN 40 MG/0.4 ML SYRINGE SUB-Q (07:53)
[2023-11-21] MEDS: CHOLECALCIFEROL 5,000 UNITS TABLET 5000 UNITS PO (07:53)
[2023-11-21 09:03] LABS: Basophils Percent Auto 0.4 % (0.2-1.2); Eosinophils Absolute Auto 0.1 K/mm3 (0-0.3); Eosinophils Percent Auto 2.6 % (0-4.4); Hematocrit 41.6 % (37.0-47.0); Hemoglobin 12.3 g/dL (12.0-15.0); Immature Granulocyte Absolute 0.01 K/mm3 (0.00-0.031); Immature Granulocyte Percent A 0.2 % (0-0.5); Lymphocytes Absolute Auto 1.56 K/mm3 (0.9-3.2); Lymphocytes Percent Auto 31.4 % (18.3-44.2); Mean Corpuscular HGB Conc 29.6 g/dl (32-36); Mean Corpuscular Hemoglobin 27.2 pg (26-34); Mean Corpuscular Volume 91.8 fl (80-100); Monocytes Absolute Auto 0.6 K/mm3 (0.1-0.6); Monocytes Percent Auto 11.1 % (2.6-8.5); Neutrophils Absolute Auto 2.7 K/mm3 (1.3-6.7); Neutrophils Percent Auto 54.3 % (45.5-73.1); Platelet Count Result 259 k/mm3 (150-375); Red Blood Count 4.53 M/mm3 (4.2-5.4); Red Cell Distribution Width 14.1 % (11.5-14.5)
[2023-11-21 09:40] LABS: Alanine Aminotransferase 12 U/L (6-35); Albumin Level 4.2 g/dL (3.5-5.1); Alkaline Phosphatase 83 U/L (38-126); Anion Gap 16 mmol/L (4-12); Aspartate Amino Transferase 33 U/L (14-36); Bilirubin,Total 0.6 mg/dL (0.2-1.3); Blood Urea Nitrogen 7 mg/dL (7-17); Calcium 9.2 mg/dL (8.4-10.2); Carbon Dioxide 23 mmol/L (22-30); Chloride 91 mmol/L (98-107); Estimated CRCL calculation 98 ml/min; Estimated Glomerular Filt Rate > 60; Glucose 102 mg/dL (65-110); Potassium 3.9 mmol/L (3.4-5.0); Sodium 130 mmol/L (137-145)
[2023-11-21 14:21] LABS: Influenza A QL RT-PCR Negative (Negative); Influenza B QL RT-PCR Negative (Negative); RSV RNA, RT-PCR Negative (Negative); SARS-CoV-2 RNA PCR Negative (Negative)
--- NOTE | 2023-11-21 15:15 | PM.IMPN ---
Progress Note: A&P Assessment and Plan (1) Acute encephalopathy: Code(s): G93.40 - Encephalopathy, unspecified Status: Acute Assessment and Plan: Patient has a complicated psychiatric history. She was at our facility in 2020 and subsequently transferred to an inpatient psych unit for severe psychosis. Her acute toxic encephalopathy likely due to complicated UTI. She is back to her baseline. She is a very pleasant woman with distracted speech. Treat UTI (see #3) -Attempt to minimize nocturnal disturbances (avoid unnecessary lab draws, vital signs, nighttime medications). - Promote regular sleep-wake cycle. - Provide orienting stimuli including clock, calendar, lights on during the day and off at nighttime, and minimal staff changes. Minimize the use of tubes and drains. Address sensory deficits including vision and hearing. Ensure no bowel or bladder retention and call with concerns. - Mobilize as much possible, ideally out of bed for meals if able. (2) Lactic acidosis: Code(s): E87.20 - Acidosis, unspecified Status: Acute Assessment and Plan: Lactic acid 2.8 on admission. Received fluid resuscitation and lactic acid has since returned to normal limits. (3) UTI (urinary tract infection): Code(s): N39.0 - Urinary tract infection, site not specified Status: Acute Assessment and Plan: - UA: cloudy appearance, 1+ protein, trace ketones, 2+ leukocytes, 3-5, >100 WBC, 2+ bacteria - UC obtained on 11/18: gram negative bacilli - previous micro reviewed 06/24/20: Ecoli with resistance to ampicillin - started on Rocephin 1g IV q24 on 11/18 (4) Post-polio syndrome: Code(s): G14 - Postpolio syndrome Status: Acute Assessment and Plan: Patient has chronic respiratory failure (2L baseline) and wheelchair dependent. (5) Essential (primary) hypertension: Code(s): I10 - Essential (primary) hypertension Status: Chronic Assessment and Plan: Chronic, well controlled. - Continue to monitor Time Spent With Patient Time with patient: 25 - 35 minutes Subjective Date/time seen: 11/21/23 15:15 Interval history: 73-year-old female with past medical history post-polio syndrome (chronic respiratory failure, wheelchair dependent), bipolar disorder, generalized anxiety disorder, major depressive disorder, hypertension, chronic hyponatremia, GERD who presents from her nursing facility as she had become uncooperative combative and throwing objects and hitting staff members. Patient is pleasant sitting up in bed. She remains AOx4. She has no complaints at this time, denying chest pain, shortness of breath, nausea/vomiting. Patient states that she is no longer having dysuria and burning sensation. She denies abdominal pain. Review of Systems Review of Systems: All systems reviewed & are unremarkable except as noted in HPI and below Exam Narrative: AF HR 96 RR 16 SpO2 97 (2L baseline) BP 142/87 General: female in no acute respiratory distress who is nontoxic appearing, sitting up in bed Chest: Lungs are clear to auscultation bilaterally. No wheezes or crackles. CV: Heart was regular rate and rhythm. S1-S2. No murmurs, gallops, or rubs. Abd: Abdomen was soft. Nontender. Nondistended. Positive bowel sounds. No organomegaly or masses. Ext: No clubbing, cyanosis, or edema. 2+ DP pulses bilaterally. Neuro: Patient is alert and oriented x4. Cranial nerves 2-12 are intact. Speech is clear. Psych: Normal mood and affect. Patient is pleasant and cooperative. Objective Data Vital Signs Vital Signs: Vital Signs - 24 hr 11/20/23 20:00 11/20/23 20:13 11/21/23 05:55 Temperature 97.0 F L 97.0 F L Pulse Rate 84 82 84 Respiratory Rate 16 18 16 Blood Pressure 101/66 124/79 Pulse Oximetry 93 100 95 Oxygen Delivery Nasal Cannula Oxygen Flow Rate 2 Fraction of Inspired Oxygen 28 11/21/23 07:58 11/21/23 08:00 11/21/23 13:58 Temperature
[2023-11-21 17:34] LABS: Glucose Point of Care 95 mg/dl (65-105)
[2023-11-22 05:32] VITALS: BP 109/73; PULSE 84; RESP 13; TEMP 36.6; O2SAT 93
[2023-11-22 06:20] LABS: Basophils Percent Auto 0.4 % (0.2-1.2); Eosinophils Absolute Auto 0.2 K/mm3 (0-0.3); Eosinophils Percent Auto 3.2 % (0-4.4); Hematocrit 36.2 % (37.0-47.0); Hemoglobin 11.5 g/dL (12.0-15.0); Immature Granulocyte Absolute 0.01 K/mm3 (0.00-0.031); Immature Granulocyte Percent A 0.2 % (0-0.5); Lymphocytes Absolute Auto 1.73 K/mm3 (0.9-3.2); Lymphocytes Percent Auto 32.6 % (18.3-44.2); Mean Corpuscular HGB Conc 31.8 g/dl (32-36); Mean Corpuscular Hemoglobin 27.4 pg (26-34); Mean Corpuscular Volume 86.2 fl (80-100); Mean Platelet Volume 9.1 fl (7.4-10.4); Monocytes Absolute Auto 0.6 K/mm3 (0.1-0.6); Monocytes Percent Auto 12.1 % (2.6-8.5); Neutrophils Absolute Auto 2.7 K/mm3 (1.3-6.7); Neutrophils Percent Auto 51.5 % (45.5-73.1); Platelet Count Result 289 k/mm3 (150-375); Red Cell Distribution Width 14.3 % (11.5-14.5); White Blood Count 5.3 K/mm3 (4.5-10.0)
[2023-11-22 06:38] LABS: Alanine Aminotransferase 11 U/L (6-35); Albumin Level 3.7 g/dL (3.5-5.1); Alkaline Phosphatase 63 U/L (38-126); Anion Gap 5 mmol/L (4-12); Aspartate Amino Transferase 18 U/L (14-36); Bilirubin,Total 0.3 mg/dL (0.2-1.3); Blood Urea Nitrogen 8 mg/dL (7-17); Calcium 8.7 mg/dL (8.4-10.2); Carbon Dioxide 35 mmol/L (22-30); Chloride 91 mmol/L (98-107); Estimated CRCL calculation 68 ml/min; Estimated Glomerular Filt Rate > 60; Glucose 84 mg/dL (65-110); Sodium 131 mmol/L (137-145)
--- NOTE | 2023-11-22 06:58 | PM.DS ---
DS: Admitting Diagnosis Discharge Date 11/22/23 Admitting Diagnosis Acute encephalopathy Lactic acidosis UTI Post polio syndrome Hypertension DS: Discharge Diagnosis Discharge Diagnosis (1) Acute encephalopathy: Code(s): G93.40 - Encephalopathy, unspecified Status: Acute (2) Lactic acidosis: Code(s): E87.20 - Acidosis, unspecified Status: Acute (3) UTI (urinary tract infection): Code(s): N39.0 - Urinary tract infection, site not specified Status: Acute (4) Post-polio syndrome: Code(s): G14 - Postpolio syndrome Status: Acute (5) Essential (primary) hypertension: Code(s): I10 - Essential (primary) hypertension Status: Chronic DS: Summary Hospital Course Reason for hospitalization: Acute encephalopathy Lactic acidosis UTI Post polio syndrome Hypertension Hospital Course: 73-year-old female with past medical history post-polio syndrome (chronic respiratory failure, wheelchair dependent), bipolar disorder, generalized anxiety disorder, major depressive disorder, hypertension, chronic hyponatremia, GERD who presents from her nursing facility as she had become uncooperative combative and throwing objects and hitting staff members. On admission patient was in acute toxic encephalopathy likely secondary to her acute infection. Her WBC remained WNL and she was afebrile. She had noted lactic acidosis of 2.8 and urinalysis concerning for a UTI. Patient was started on IV antibiotics and fluids at that time. Lactic acid resolved. Patient returned to AOx4. Urine culture grew proteus mirabilis. Patient discharged back to her SNF on Augmentin to complete her course of antibiotics. Patient discharged to SNF in stable condition. She is to complete her antibiotics as prescribed and follow up with her PCP in 1 week. Status at Discharge Functional status at discharge: wheelchair bound Time Spent with Patient Time attestation: Total time spent providing and/or coordinating discharge services: Time spent: Greater than 30 minutes Exam Narrative: AF HR 93 RR 12 SPO2 96 2L BP 114/40 General: female in no acute respiratory distress who is nontoxic appearing, sitting up in bed Chest: Lungs are clear to auscultation bilaterally. No wheezes or crackles. CV: Heart was regular rate and rhythm. S1-S2. No murmurs, gallops, or rubs. Abd: Abdomen was soft. Nontender. Nondistended. Positive bowel sounds. No organomegaly or masses. Ext: No clubbing, cyanosis, or edema. 2+ DP pulses bilaterally. Neuro: Patient is alert and oriented x4. Speech is clear. DS: Data Data Completed and Pending Labs on day of discharge: Labs from last 24 hours 11/22/23 11/21/23 11/21/23 06:06 17:29 13:35 WBC 5.3 RBC 4.20 Hgb 11.5 L Hct 36.2 L MCV 86.2 D MCH 27.4 MCHC 31.8 L RDW 14.3 Plt Count 289 MPV 9.1 Immature Gran % (Auto) 0.2 Neut % (Auto) 51.5 Lymph % (Auto) 32.6 [place] % (Auto) 12.1 H Eos % (Auto) 3.2 Baso % (Auto) 0.4 Lymph # (Auto) 1.73 [place] # (Auto) 0.6 Eos # (Auto) 0.2 Baso # (Auto) 0.0 Abs Immat Gran (auto) 0.01 Absolute Neuts (auto) 2.7 Absolute Nucleated RBC 0.000 Nucleated RBC % 0.0 Sodium 131 L Potassium 4.0 Chloride 91 L Carbon Dioxide 35 H Anion Gap 5 BUN 8 Creatinine 0.60 L Estim Creat Clear Calc 68 Estimated GFR > 60 Glucose 84 POC Capillary Glucose 95 Calcium 8.7 Total Bilirubin 0.3 AST 18 ALT 11 Alkaline Phosphatase 63 Total Protein 6.0 L Albumin 3.7 Influenza A (RT-PCR) Negative Influenza B (RT-PCR) Negative RSV (RT-PCR) Negative SARS-CoV-2 RNA (RT-PCR) Negative 11/21/23 08:51 WBC 5.0 RBC 4.53 Hgb 12.3 Hct 41.6 MCV 91.8 D MCH 27.2 MCHC 29.6 L RDW 14.1 Plt Count 259 MPV 9.0 Immature Gran % (Auto) 0.2 Neut % (Auto) 54.3 Lymph % (Auto) 31.4 [place] % (Auto) 11.1 H Eos % (Auto) 2.6 Baso
[2023-11-22 08:00] VITALS: O2SAT 93
[2023-11-22] MEDS: ENOXAPARIN 40 MG/0.4 ML SYRINGE SUB-Q (08:36)
[2023-11-22] MEDS: CALCIUM/VITAMIN D 250 MG/3.125 MCG (125 I.U.) TABLET 1 TABLET PO (08:37)
[2023-11-22] MEDS: SACCHAROMYCES BOULARDII 250 MG CAPSULE PO (08:37)
[2023-11-22] MEDS: PANTOPRAZOLE 40 MG TABLET PO (08:37)
[2023-11-22] MEDS: DIVALPROEX SODIUM DR 125 MG TABEC PO (08:37)
[2023-11-22] MEDS: lamoTRIgine 100 MG TABLET PO (08:37)
[2023-11-22] MEDS: CHOLECALCIFEROL 5,000 UNITS TABLET 5000 UNITS PO (08:37)
[2023-11-22] MEDS: SODIUM CHLORIDE 500 MG TABLET PO (08:37)
[2023-11-22] MEDS: METOCLOPRAMIDE HCL 10 MG TABLET PO (08:37)
[2023-11-22] MEDS: FLUoxetine HCL 20 MG CAPSULE 40 MG PO (08:37)
== END 2023-11-22 13:50 | DRG 689 ==
LOC: ANHED 05:03 → ANH3MEDSUR 08:24
PROVIDERS: General Practice; Admitting Provider Internal Medicine; Emergency Provider Student in an Organized Health Care Education/Training Program; Visit Provider Student in an Organized Health Care Education/Training Program
DX: N39.0 Urinary tract infection, site not specified (principal); G92.8 Other toxic encephalopathy; J96.11 Chronic respiratory failure with hypoxia; E87.21 Acute metabolic acidosis; E87.1 Hypo-osmolality and hyponatremia; B96.4 Proteus (mirabilis) (morganii) as the cause of diseases classified elsewhere; E86.0 Dehydration; E78.5 Hyperlipidemia, unspecified; F41.1 Generalized anxiety disorder; G14 Postpolio syndrome; F31.9 Bipolar disorder, unspecified; K21.9 Gastro-esophageal reflux disease without esophagitis; Z96.632 Presence of left artificial wrist joint; Z96.631 Presence of right artificial wrist joint; Z96.642 Presence of left artificial hip joint; Z90.710 Acquired absence of both cervix and uterus; Z20.822 Contact with and (suspected) exposure to COVID-19; Z99.3 Dependence on wheelchair
CPT/HCPCS: 36415; 80048; 80053; 81001; 82948; 83605; 83735; 85025; 85610; 85730; 87077; 87086; 87088; 87186; 87637; 93005; 96361; 96365; 96376; 99285; A9270; G0378; J0696; J1650; J3475; J7030; J7120

== ENCOUNTER 2023-12-07 06:39 | Inpatient (IN) | payer MEDICARE, OTHER, SELFPAY ==
[2023-12-07] VITALS (16 sets, daily range): BP systolic 125–166; BP diastolic 80–108; PULSE 98–105; RESP 15–21; TEMP 36.4–37.1; O2SAT 95–100
--- NOTE | ~2023-12-07 | CT_ITS ---
EXAMINATION: CT diagnostic chest wo con DATE: 12/07/2023 10:39 INDICATION: opacities lower lungs TECHNIQUE: Computed tomography (CT) of the chest was performed without intravenous contrast. Addition al 3D reconstructions utilizing coronal maximum intensity projection (MIP) were performed. Automated exposure control and iterative reconstruction technique were employed. The dose-length product was 52 8.90 mGy-cm. COMPARISON: CT abdomen and pelvis dated 06/24/2020 FINDINGS: Elevation of the right hemidiaphragm with compressive atelectasis along the basilar right lower lobe and mild discoid atelectasis in the medial right middle lobe. Interval increase in size in a large sl iding-type hiatal hernia which contains the majority of the stomach along with the spleen and tail of the pancreas. There is gas and fluid distending the intrathoracic portion the stomach with likely re fluxed fluid extending to the upper thoracic esophagus. Partial collapse of the basilar segments of t he left lower lobe. Mild right apical pleural-parenchymal scarring. No evident pulmonary edema or pne umonia in the noncollapsed portions of the lungs. No pleural effusion or pneumothorax. Heart size is normal. Atherosclerotic coronary artery calcifications. Fusiform aneurysm of the ascending thoracic a mo which measures up to 4.4 x 4.2 cm in maximal diameter. No pathologically enlarged thoracic lymph adenopathy. 1.6 similar hyperdense proteinaceous/hemorrhagic cyst at the upper pole the right kidney. Small region of chronic cortical scarring and adjacent rim calcified cyst at the upper pole the righ t kidney. Chronic T7 compression fracture with 60% anterior vertebral body height loss and chronic ap pearing T12 burst fracture with 80% central vertebral body height loss and 7 mm retropulsion resultin g in moderate to severe central canal stenosis at this level. IMPRESSION: 1. Increasing volume loss in both lungs secondary to elevation of the right hemidiaphragm and increas ing size of a large hiatal hernia with associated compressive atelectasis in both lower lungs. 2. Fusiform ascending thoracic aortic aneurysm measuring up to 4.4 cm. 3. Chronic T7 compression and T12 burst fractures, the latter with 7 mm retropulsion resulting in mod erate to severe central canal stenosis at this level. Reviewed, dictated and finalized at location A. IMPRESSION: 1. Increasing volume loss in both lungs secondary to elevation of the right hem idiaphragm and increasing size of a large hiatal hernia with associated preston sive atelectasis in both lower lungs. 2. Fusiform ascending thoracic aortic aneurysm measuring up to 4.4 cm. 3. Chronic T7 compression and T12 burst fractures, the latter with 7 mm retropu lsion resulting in moderate to severe central canal stenosis at this level.
--- NOTE | ~2023-12-07 | CT_ITS ---
EXAMINATION: CT brain wo con DATE: 12/07/2023 10:39 INDICATION: Mental status changes TECHNIQUE: Computed tomography (CT) of the head was performed without intravenous contrast. Sagittal and coronal reconstructions were performed. The mA was adjusted according to patient size. Iterative reconstruction technique was employed. The dose-length product was 605.33 mGy-cm. COMPARISON: head CT dated 06/24/2020 FINDINGS: No acute intracranial hemorrhage, acute infarction or abnormal extra axial fluid collection. There is mild scattered white matter hypoattenuation consistent with chronic small vessel ischemic disease. V entricles are normal and symmetric. No mass/mass effect. The orbits, paranasal sinuses and mastoid ai r cells are normal. IMPRESSION: 1. Normal aging brain. No acute intracranial process. Reviewed, dictated and finalized at location A.
--- NOTE | ~2023-12-07 | XR_ITS ---
EXAMINATION: XR chest 1V portable DATE: 12/07/2023 09:01 INDICATION: Cough TECHNIQUE: frontal view of the chest was obtained. COMPARISON: Chest radiograph dated 04/08/[address] dated 06/24/2020 FINDINGS: Bilateral lung volumes are decreased. Airspace opacities in the bilateral mid to lower lung zones whi ch could represent associated increasing atelectasis with differential including pneumonia or potenti ally small pleural effusions. No evident pulmonary edema. The cardiac silhouette is obscured. Gas-tanya led stomach and sent for colon project over the left mid to lower lung zone unclear whether below the elevated left hemidiaphragm or within the previously noted large hiatal hernia. Chronic lower thorac ic burst fracture. IMPRESSION: 1. Bilateral decreased lung volumes with opacities in the bilateral mid and lower lung zones most lik renetta associated atelectasis although differential includes pneumonia and/or small pleural effusions. 2. Gas-filled stomach or bowel projecting over the left mid to lower lung zones either below an eleva amy left hemidiaphragm or within a previously noted large hiatal hernia. Reviewed, dictated and finalized at location A. IMPRESSION: 1. Bilateral decreased lung volumes with opacities in the bilateral mid and low er lung zones most likely associated atelectasis although differential includes pneumonia and/or small pleural effusions. 2. Gas-filled stomach or bowel projecting over the left mid to lower lung zones either below an elevated left hemidiaphragm or within a previously noted large hiatal hernia.
--- NOTE | 2023-12-07 06:55 | PC.NURSE ---
Daughter called by this RN. Daughter states that the patient has been at [facility] for one month for PT rehab after being hospitalized for a UTI. She reports she does not think she has antibiotics currently, but is unsure. She reports normal mental status is alert and able to hold conversations, but this varies day-by-day due to her bipolar history. She states the patient has had episodes like this previously. She reports Thursday the staff at [facility] had called her stating they would not be giving her medications because she is not cooperating. Daughter expressed the importance of getting her behavioral medications, and was informed they did eventually administer them. As far as daughter knows, patient has not been ill or endured any traumas. Daughter states patient is wheelchair bound, but is capable of pivoting/walking a few steps. Daughter would like to be contacted with any updates.
--- NOTE | 2023-12-07 07:15 | PC.NURSE ---
Sitter placed with patient for patient safety. Patient continually trying to get out of bed, difficult to redirect. Bed alarm placed under patient.
--- NOTE | 2023-12-07 07:16 | ECG_ITS ---
Test Date: 2023-12-07 09:25:46 Measurements Intervals [place] Rate: 101 P: 48 GA: 167 QRS: 23 QRSD: 85 T: 30 QT: 369 QTc: 480 Interpretive Statements SINUS TACHYCARDIA ABNORMAL RHYTHM ECG Compared to ECG 11/19/2023 05:00:21 NO SIGNIFICANT CHANGE Electronically Signed On 12-07-2023 12:33:17 CDT by Stuart Ware M.D.
--- NOTE | 2023-12-07 07:51 | PC.NURSE ---
Pt is very anxious, does not let any of the nurses to touch her and to get blood or start IV. Pt is asking for Don. Don called and is here. Pt is more calm.
--- NOTE | 2023-12-07 07:53 | ED.GENADULT ---
HPI - General Adult General Chief complaint: Unspecified Stated complaint: ?AMS/?syncope Time Seen by Provider: 12/07/23 07:07 History of Present Illness HPI narrative: Pt sent from local [place] for apparently altered mental status. When nurse called facility night nurse there said she was new and didn't know patient very well but she seems altered. Pt unable to communicate so can't provide history. Related Data Home Medications Medication Instructions Recorded Confirmed sodium chloride 1 gram tablet 0.5 g PO BID 06/24/20 12/07/23 cholecalciferol (vitamin D3) 125 125 mcg PO DAILY 07/24/20 12/07/23 mcg (5,000 unit) capsule furosemide 20 mg tablet 10 mg PO QAM 07/24/20 12/07/23 Lactobacillus rhamnosus GG 10 1 cap PO DAILY 11/19/23 12/07/23 billion cell-inulin 200 mg capsule ([employer]) albuterol sulfate 90 mcg/actuation 2 puff inhalation QID PRN Wheezing 11/19/23 12/07/23 aerosol inhaler calcium carbonate 250 mg-vitamin 1 tablet PO BID 11/19/23 12/07/23 D3 3.125 mcg (125 unit) tablet (Oyster Shell Calcium-Vitamin D3) divalproex 125 mg tablet,delayed 125 mg PO BID 11/19/23 12/07/23 release fluoxetine 40 mg capsule 40 mg PO DAILY 11/19/23 12/07/23 lamotrigine 100 mg tablet 100 mg PO BID 11/19/23 12/07/23 lurasidone 60 mg tablet 60 mg PO DAILY 11/19/23 12/07/23 metoclopramide HCl 10 mg tablet 10 mg PO TIDWM 11/19/23 12/07/23 (Reglan) Allergies Allergy/AdvReac Type Severity Reaction Status Date / Time adhesive Allergy Severe Rash Verified 11/19/23 09:13 morphine Allergy Severe Swelling Verified 11/19/23 09:13 procaine Allergy Severe Agitated Verified 11/19/23 09:13 Review of Systems Review of Systems: ROS unobtainable: Yes unobtainable due to mental status PMFSH Past Medical History Medical History Adult failure to thrive Bipolar disorder Chronic respiratory failure with hypoxia Essential (primary) hypertension Gastro-esophageal reflux disease with esophagitis, without bleeding Generalized anxiety disorder Hyperlipidemia Hypo-osmolality and hyponatremia Hyponatremia Hypoxemia Major depressive disorder, single episode, unspecified Muscle weakness (generalized) Need for assistance with personal care Pain of left lower extremity Post-polio syndrome Unsteadiness on feet Wellness examination Wheezing Surgical History Surgical History H/O: hysterectomy History of arthroplasty of both wrists right wrist History of hip surgery Partial left hip replacement at [place] Status post electroconvulsive therapy Family History Family History Father Hypertension Family history of diabetes mellitus in first degree relative Family history of lung cancer Mother Family history of thyroid disease Other Hyponatremia Social History Social History Social History: Pablo (Crow). She has two children. She is retired. She used to work at a [employer] and in [employer] at [employer]. She is a lifelong non-smoker. She reports occasional alcohol use and denies illicit substance use. She previously wished to be a full code (2020) but [place] documentation/POLST signed 11/06/23 indicates no CPR (DNAR). She has designated her Crow as her surrogate decision maker. Smoking packs per day: 1 Smoking cigarettes per day: 20.0 Years smoked: 35 Smoking pack-years: 35.00 Smoking status: Never smoker Tobacco type: cigarettes Smoking end date: 04/27/08 Alcohol intake: never Alcohol use details: She occasionally drinks 1-2 [place] Lights with dinner. Substance use: never Substance use type: does not use Do You Feel Safe in your Home?: Yes Lack of Transportation: No Lack of Food: Never True Current Housing: I Have Housing Concerned About Future H
[2023-12-07 08:47] LABS: Basophils Percent Auto 0.2 % (0.2-1.2); Eosinophils Absolute Auto 0.1 K/mm3 (0-0.3); Eosinophils Percent Auto 0.6 % (0-4.4); Hematocrit 38.1 % (37.0-47.0); Hemoglobin 13.2 g/dL (12.0-15.0); Immature Granulocyte Absolute 0.03 K/mm3 (0.00-0.031); Immature Granulocyte Percent A 0.3 % (0-0.5); Lymphocytes Percent Auto 11.9 % (18.3-44.2); Mean Corpuscular HGB Conc 34.6 g/dl (32-36); Mean Corpuscular Hemoglobin 28.1 pg (26-34); Mean Corpuscular Volume 81.1 fl (80-100); Mean Platelet Volume 8.9 fl (7.4-10.4); Monocytes Percent Auto 9.4 % (2.6-8.5); Neutrophils Absolute Auto 8.5 K/mm3 (1.3-6.7); Neutrophils Percent Auto 77.6 % (45.5-73.1); Platelet Count Result 399 k/mm3 (150-375); Red Cell Distribution Width 13.3 % (11.5-14.5)
[2023-12-07] MEDS: LORazepam INJ (*CRX) 2 MG/ML VIAL 1 MG IV PUSH (08:54)
[2023-12-07 08:56] LABS: Lactic Acid Reflex 1.1 mmol/L (0.7-2.0)
[2023-12-07 08:57] LABS: INR 1.1; Prothrombin Time 14.4 Seconds (11.1-14.7)
[2023-12-07 08:58] LABS: Partial Thromboplastin Time 28.5 Seconds (22.3-36.8)
[2023-12-07 09:15] LABS: Alanine Aminotransferase 14 U/L (6-35); Albumin Level 4.4 g/dL (3.5-5.1); Alkaline Phosphatase 87 U/L (38-126); Anion Gap 15 mmol/L (4-12); Aspartate Amino Transferase 26 U/L (14-36); Bilirubin,Total 0.9 mg/dL (0.2-1.3); Blood Urea Nitrogen 15 mg/dL (7-17); Calcium 9.1 mg/dL (8.4-10.2); Carbon Dioxide 26 mmol/L (22-30); Chloride 79 mmol/L (98-107); Estimated CRCL calculation 94 ml/min; Estimated Glomerular Filt Rate > 60; Glucose 102 mg/dL (65-110); Potassium 3.8 mmol/L (3.4-5.0); Sodium 120 mmol/L (137-145)
[2023-12-07 09:32] LABS: Influenza A QL RT-PCR Negative (Negative); Influenza B QL RT-PCR Negative (Negative); RSV RNA, RT-PCR Negative (Negative); SARS-CoV-2 RNA PCR Negative (Negative)
[2023-12-07] MEDS: SODIUM CHLORIDE 0.9% IV 1,000 ML 125 ML IV CONT (10:20)
[2023-12-07 11:36] LABS: Add Urine Microscopic? YES; Appearance Urine Clear (Clear); Bacteria Urine None Seen /hpf; Bilirubin Urine Negative (Negative); Blood Urine Negative (Negative); Color Urine Yellow (Yellow); Glucose Urine UA Negative (Negative); Ketones Urine 3+ mg/dL (Negative); Leukocyte Esterase Ur Negative LEU/UL (Negative); Nitrate Urine Negative (Negative); Non Pathogenic Casts 0-2; Protein Urine Trace mg/dL (Negative); RBC Urine 0-2 /hpf (0-2); Specific Grav Ur 1.022 (1.001-1.035); Squamous Epithelial Cell Urine Few /hpf (Few); WBC Urine 0-5 /hpf (0-3)
--- NOTE | 2023-12-07 12:11 | PC.NURSE ---
called report for patient @1208, all questions answered. floor states the room is still being cleaned and they will notify ED as soon as it is ready for the patient.
--- NOTE | 2023-12-07 13:00 | PM.IMHP ---
H&P: HPI History of Present Illness Date/Time: 12/07/23 13:00 Chief Complaint: decrease responsiveness Narrative: his is a 73-year-old female with past medical history post-polio syndrome (chronic respiratory failure, wheelchair dependent), bipolar disorder, generalized anxiety disorder, major depressive disorder, hypertension, chronic hyponatremia, GERD who was borught to the ER from intermediate on account of decreased responsiveness. Son was at the bedside and noted that he was informed by the ME that she was less alert this morning prompting transfer to the ER. he noted this always happens whenever her sodium goes low. Noted she alert and oriented x3 at baseline but is wheelchair bound. Patient was alert and oriented x2 at the time of this encounter and denies any discomfort. ER eval notable for BP 129/97, WBC 11, hemoglobin 13.2, platelets 399, sodium 120, chloride 79, UA positive for 3+ ketones, blood sugar 102, CTA Chest showed increasing larfe hiatal hernia associated with compressive atelectasis, aortic aneurysm 4.4, chronic T7, and T12 burst fractures iwth 7mm retropulsion with moderate to severe central canal stenosis. CT head no acute changes. Patient was started on IVF prior to admission. Review of Systems Review of Systems: unable to ROS due to AMS [facility] Past Medical History Medical History Adult failure to thrive Bipolar disorder Chronic respiratory failure with hypoxia Essential (primary) hypertension Gastro-esophageal reflux disease with esophagitis, without bleeding Generalized anxiety disorder Hyperlipidemia Hypo-osmolality and hyponatremia Hyponatremia Hypoxemia Major depressive disorder, single episode, unspecified Muscle weakness (generalized) Need for assistance with personal care Pain of left lower extremity Post-polio syndrome Unsteadiness on feet Wellness examination Wheezing Surgical History Surgical History H/O: hysterectomy History of arthroplasty of both wrists right wrist History of hip surgery Partial left hip replacement at [place] Status post electroconvulsive therapy Family History Family History (Updated 12/07/23 @ 13:18 by Brandon York MD) Father Hypertension Family history of diabetes mellitus in first degree relative Family history of lung cancer Mother Family history of thyroid disease Other Hyponatremia Social History Social History Social History: Pablo (Crow). She has two children. She is retired. She used to work at a [employer] and in the [employer] at [employer]. She is a lifelong non-smoker. She reports occasional alcohol use and denies illicit substance use. She previously wished to be a full code (2020) but [place] documentation/POLST signed 11/06/23 indicates no CPR (DNAR). She has designated her Crow as her surrogate decision maker. Smoking packs per day: 1 Smoking cigarettes per day: 20.0 Years smoked: 35 Smoking pack-years: 35.00 Smoking status: Never smoker Tobacco type: cigarettes Smoking end date: 04/27/08 Alcohol intake: never Alcohol use details: She occasionally drinks 1-2 [place] Lights with dinner. Substance use: never Substance use type: does not use Do You Feel Safe in your Home?: Yes Lack of Transportation: No Lack of Food: Never True Current Housing: I Have Housing Concerned About Future Housing: No Difficulty Paying Gas/Electric Bills: No Difficulty Paying for Meds: No Currently Unemployed: No Education: Decline to Answer Difficulty w/ Childcare or Family Care: No Living arrangements: halfway Additional living arrangements comments: [facility] [place] Occupation/Education: retired Additional occupation/education comments: former cashier and salesperson at [employer] Gender identity (if verbalized by the patient):
[2023-12-07 13:35] LABS: Anion Gap 15 mmol/L (4-12); Blood Urea Nitrogen 14 mg/dL (7-17); Calcium 8.6 mg/dL (8.4-10.2); Carbon Dioxide 27 mmol/L (22-30); Chloride 78 mmol/L (98-107); Estimated CRCL calculation 94 ml/min; Estimated Glomerular Filt Rate > 60; Glucose 88 mg/dL (65-110); Potassium 3.6 mmol/L (3.4-5.0); Sodium 120 mmol/L (137-145)
[2023-12-07] MEDS: SODIUM CHLORIDE 3% 100 ML 30 ML IV CONT (15:59)
[2023-12-07 16:25] LABS: Creatinine Urine 88.8 mg/dL
[2023-12-07 16:30] LABS: Sodium Urine Random 100 meq/L
[2023-12-07] MEDS: DIVALPROEX SODIUM DR 125 MG TABEC PO (17:41)
[2023-12-07] MEDS: SODIUM CHLORIDE 1 GM TABLET PO (17:46)
[2023-12-07] MEDS: SODIUM CHLORIDE 0.9% IV 1,000 ML 75 ML IV CONT (20:17)
[2023-12-07] MEDS: lamoTRIgine 100 MG TABLET PO (20:18)
[2023-12-07 20:43] LABS: Sodium 120 mmol/L (137-145)
[2023-12-08] VITALS (16 sets, daily range): BP systolic 135–165; BP diastolic 70–106; PULSE 68–109; RESP 16–20; TEMP 36.4–36.8; O2SAT 94–99; BMI 28.1
[2023-12-08 01:50] LABS: Sodium 120 mmol/L (137-145)
[2023-12-08 05:30] LABS: Basophils Percent Auto 0.2 % (0.2-1.2); Eosinophils Percent Auto 0.1 % (0-4.4); Hematocrit 36.7 % (37.0-47.0); Hemoglobin 12.2 g/dL (12.0-15.0); Immature Granulocyte Absolute 0.05 K/mm3 (0.00-0.031); Immature Granulocyte Percent A 0.4 % (0-0.5); Lymphocytes Absolute Auto 1.54 K/mm3 (0.9-3.2); Lymphocytes Percent Auto 13.1 % (18.3-44.2); Mean Corpuscular HGB Conc 33.2 g/dl (32-36); Mean Corpuscular Hemoglobin 27.5 pg (26-34); Mean Corpuscular Volume 82.8 fl (80-100); Mean Platelet Volume 9.1 fl (7.4-10.4); Monocytes Absolute Auto 1.2 K/mm3 (0.1-0.6); Monocytes Percent Auto 10.1 % (2.6-8.5); Neutrophils Absolute Auto 8.9 K/mm3 (1.3-6.7); Neutrophils Percent Auto 76.1 % (45.5-73.1); Platelet Count Result 358 k/mm3 (150-375); Red Blood Count 4.43 M/mm3 (4.2-5.4); Red Cell Distribution Width 13.2 % (11.5-14.5); White Blood Count 11.8 K/mm3 (4.5-10.0)
[2023-12-08 05:36] LABS: Alanine Aminotransferase 14 U/L (6-35); Albumin Level 4.1 g/dL (3.5-5.1); Alkaline Phosphatase 82 U/L (38-126); Anion Gap 11 mmol/L (4-12); Aspartate Amino Transferase 23 U/L (14-36); Bilirubin,Total 0.5 mg/dL (0.2-1.3); Blood Urea Nitrogen 11 mg/dL (7-17); Calcium 8.3 mg/dL (8.4-10.2); Carbon Dioxide 27 mmol/L (22-30); Chloride 84 mmol/L (98-107); Estimated CRCL calculation 136 ml/min; Estimated Glomerular Filt Rate > 60; Glucose 106 mg/dL (65-110); Magnesium 1.5 mg/dL (1.6-2.3); Potassium 3.6 mmol/L (3.4-5.0); Sodium 122 mmol/L (137-145)
[2023-12-08] MEDS: SODIUM CHLORIDE 0.9% IV 1,000 ML 75 ML IV CONT (08:25)
[2023-12-08] MEDS: DIVALPROEX SODIUM DR 125 MG TABEC PO ×2 (08:26→16:59)
[2023-12-08] MEDS: SODIUM CHLORIDE 1 GM TABLET PO ×3 (08:26→23:57)
[2023-12-08] MEDS: LURASIDONE 60 MG PO (08:26)
[2023-12-08] MEDS: [UNRECOGNIZED DRUG - OTHER] PO (08:26)
[2023-12-08] MEDS: lamoTRIgine 100 MG TABLET PO ×2 (08:27→20:27)
--- NOTE | 2023-12-08 10:59 | PM.CNNEP ---
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 from her anti depressant/anxiety medicines +/- COPD treated with fluid restriction, salt tabs, and lasix at that time risk factors for low sodium: SSRI use lamotrignine use lurasidone use (albeit it is rare) lung disease PPI use recheck TSH, cortisol, SPEP and UPEP on trial of IVFs follow trend of repeat sodium levels (2) Altered mental status: Code(s): R41.82 - Altered mental status, unspecified Status: Acute Assessment and Plan: clinically better at this time (and confirmed by family) unclear if hyponatremia is etiology (since sodium has not improved that much) CT of head negative continue supportive care (3) Chronic respiratory failure with hypoxia: Code(s): J96.11 - Chronic respiratory failure with hypoxia Status: Acute Assessment and Plan: secondary to COPD and postpolio syndrome on 2L supplemental oxygen at baseline (4) Essential (primary) hypertension: Code(s): I10 - Essential (primary) hypertension Status: Chronic Assessment and Plan: fluctuating readings since admission follow trend of hemodynamics I will continue follow the patient with you while she remains hospitalized and make further recommendations as deemed necessary. Thank you for allowing me to participate in care of this patient. History of Present Illness Reason for Consult Consult date: 12/08/23 Reason for consult: hyponatremia (acute on chronic) Chief Complaint Chief complaint: Hyponatremia History of Present Illness Narrative: The patient is a 73-year-old female with a past medical history as outlined below who presented to [facility] Emergency Room from her nursing facility due to altered mental status. Apparently, nursing staff noted the patient was not as alert and oriented on the morning of admission which prompted the ER transfer. By family report, a change in altered mental status usually correlates with a change in her sodium level from past experience. At baseline, she is normally alert and oriented x 3 but apparently she was fluctuating anywhere between being alert and oriented x 1 to alert and oriented x 2. Given this change in her neurological status, she was transferred to the ER for further assessment Workup and evaluation emergency room demonstrated the patient to be hemodynamically stable and in no apparent distress. Routine blood test demonstrated a CBC with a mildly elevated white cell count of 11.0, hemoglobin 13.1 and normal platelets with a chemistry that showed a sodium of 120, chloride of 79, and normal renal function without any critical electrolyte abnormalities. Her urinalysis was significant for 3+ ketones and her blood sugar was within normal limits. CT scan of the head was without any acute pathology and a CT scan of her chest showed increasing a hiatal hernia associated with compressive atelectasis, aortic aneurysm of 4.4 cm, and chronic T7 and T12 burst fractures in association with severe central canal stenosis. Given her low sodium level, she was started on IV fluids and serial sodium levels were ordered and she was admitted to the hospital for further evaluation therapy. Since her admission, her sodium level has improved up to 122 millimoles per L and her mentation appears to be significantly better as well according to family at bedside at the time of my visit. Renal consultation was requested due to her acute on chronic hyponatremia. From review her records, the patient has had chronic hyponatremia that dates back as far as
[2023-12-08 14:32] LABS: Sodium 120 mmol/L (137-145)
[2023-12-08 15:59] LABS: Osmolality, Urine 741 mOsm/kg (50-1200)
[2023-12-08] MEDS: FUROSEMIDE 20 MG TABLET PO (18:42)
--- NOTE | 2023-12-08 18:42 | PM.IMPN ---
Progress Note: A&P Assessment and Plan (1) Hyponatremia: Code(s): E87.1 - Hypo-osmolality and hyponatremia Status: Acute Assessment and Plan: #Hyponatremia 2/2 drug induced vs lung disease baseline sodium runs ~ 129 - 136mmol/L since 2019 last hospitalization a few weeks ago, sodium was 130 - 134mmol/L urine studies pending No PNA on imaging dietitian consulted to evaluate oral intake Nacl tab 1gm PO BID continue NS at 75 and monitor q4, adjust fluid accordingly #AMS likely from Hyponatremia hx of chronic hyponatremia no acute findings on CT head Alert adn oriented x2 baseline patient is alert and oriented x3, and wheelchair bound #HTN titrate home meds with clinical #COPD /Postpolio syndrome with Chronic hypoxemic respiratory syndrome on 2 liter oxygen at baseline currently on baseline oxygen Continue home bronchodilators patient is a former smoker #Postpolio syndrome Continue monitoring #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 with 7mm repulsion and moderate to severe central canal stenosis patient at [facility] continue monitoring #Bipolar disorder continue home meds #Thoracic aorta aneurysm 4.[address] continue outpatient monitoring #Depression and anxiety continue home meds DVT prophylaxis on Sq Lovenox Patient is DNR, discussed with son at bedside Subjective Date/time seen: 12/08/23 18:42 Interval history: Patient was examined at the bedside alongside with the brother and her mother. Per mother patient was living in the assisted living home for past 2 years patient suffers from chronic anxiety anxiety. Patient was affected by polio during her childhood. Patient has a severe tremor her brother notice given that a chronic issue and aggravated whenever she gets hospitalized CT of the head shows normal. The patient sodium remains 120. Review of Systems Review of Systems: unable to ROS due to AMS Exam Narrative: General: alert and comfortable Eyes: EOMI, PERRLA ENNT External ears normal, Neck is supple, no masses, Respiratory systems: Clear to auscultation Cardiovascular S1, S2, normal rhythm, no murmur, rub, or gallop; no thrill or palpable murmurs on palpation. Gastrointestinal: soft, non-tender, and non-distended abdomen with no masses; BS present Skin: no rash, lesions, ulcerations, subcutaneous nodules or induration Musculoskeletal: LLE splint Neurologic: Alert and oriented x2, non focal Mental Status Exam: flat affect Objective Data Vital Signs Vital Signs: Vital Signs - 24 hr 12/07/23 19:51 12/07/23 20:00 12/07/23 20:00 Temperature 97.7 F Pulse Rate 103 H 104 H Respiratory Rate 18 Blood Pressure 134/93 H Pulse Oximetry 96 Oxygen Delivery Room Air 12/07/23 22:00 12/07/23 23:57 12/08/23 00:00 Temperature 97.6 F Pulse Rate 102 H 99 99 Respiratory Rate 18 Blood Pressure 125/80 Pulse Oximetry 97 Oxygen Delivery 12/08/23 00:00 12/08/23 02:00 12/08/23 04:00 Temperature Pulse Rate 92 93 Respiratory Rate Blood Pressure Pulse Oximetry Oxygen Delivery Room Air 12/08/23 05:03 12/08/23 04:00 12/08/23 06:00 Temperature 97.8 F Pulse Rate 93 88 Respiratory Rate 18 Blood Pressure 165/70 H Pulse Oximetry 97 Oxygen Delivery Room Air 12/08/23 08:00 12/08/23 08:00 12/08/23 08:00 Temperature 98.2 F Pulse Rate 86 95 95 Respiratory Rate 16 16 Blood Pressure 159/104 H Pulse Oximetry 98 98 Oxygen Delivery Room Air 12/08/23 12:00 12/08/23 10:00 12/08/23 12:00 Temperature 98.2 F Pulse Rate 68 97 101 H Respiratory Rate 18 Blood Pressure 135/90 Pulse Oximetry 99 Oxygen Delivery 12/08/23 14:00 12/08/23 12:00 12/08/23 16:00 Temperature 97.8 F Pulse Rate 100 101 H 98 Respiratory Rate 18 20 Blood Pressure 140/85 Pulse Oximetry 99 94 Oxygen Delivery Room Air 12/08/23 16:00 12/08/23 16:00 12/08/23 18:00
[2023-12-08 22:11] LABS: Sodium 121 mmol/L (137-145)
--- NOTE | 2023-12-08 22:15 | PC.NURSE ---
Message left for Dr. Ansari with Na level. Awaiting call back.
[2023-12-08] MEDS: FUROSEMIDE 10 MG TABLET PO (23:57)
[2023-12-09] VITALS (15 sets, daily range): BP systolic 125–166; BP diastolic 80–113; PULSE 84–113; RESP 18–20; TEMP 36–36.6; O2SAT 90–100
[2023-12-09 04:17] LABS: Hematocrit 34.7 % (37.0-47.0); Hemoglobin 11.7 g/dL (12.0-15.0); Mean Corpuscular HGB Conc 33.7 g/dl (32-36); Mean Corpuscular Hemoglobin 27.7 pg (26-34); Mean Corpuscular Volume 82.2 fl (80-100); Mean Platelet Volume 9.1 fl (7.4-10.4); Platelet Count Result 384 k/mm3 (150-375); Red Blood Count 4.22 M/mm3 (4.2-5.4); Red Cell Distribution Width 13.2 % (11.5-14.5); White Blood Count 12.4 K/mm3 (4.5-10.0)
[2023-12-09 04:19] LABS: Basophils Percent Auto 0.2 % (0.2-1.2); Eosinophils Percent Auto 0.1 % (0-4.4); Hematocrit 35.2 % (37.0-47.0); Hemoglobin 11.8 g/dL (12.0-15.0); Immature Granulocyte Absolute 0.04 K/mm3 (0.00-0.031); Immature Granulocyte Percent A 0.3 % (0-0.5); Lymphocytes Absolute Auto 1.36 K/mm3 (0.9-3.2); Lymphocytes Percent Auto 10.6 % (18.3-44.2); Mean Corpuscular HGB Conc 33.5 g/dl (32-36); Mean Corpuscular Hemoglobin 27.6 pg (26-34); Mean Corpuscular Volume 82.2 fl (80-100); Mean Platelet Volume 9.2 fl (7.4-10.4); Monocytes Absolute Auto 1.3 K/mm3 (0.1-0.6); Monocytes Percent Auto 9.9 % (2.6-8.5); Neutrophils Absolute Auto 10.1 K/mm3 (1.3-6.7); Neutrophils Percent Auto 78.9 % (45.5-73.1); Platelet Count Result 383 k/mm3 (150-375); Red Blood Count 4.28 M/mm3 (4.2-5.4); Red Cell Distribution Width 13.2 % (11.5-14.5); White Blood Count 12.8 K/mm3 (4.5-10.0)
[2023-12-09 04:26] LABS: Alanine Aminotransferase 12 U/L (6-35); Alkaline Phosphatase 78 U/L (38-126); Anion Gap 7 mmol/L (4-12); Aspartate Amino Transferase 19 U/L (14-36); Bilirubin,Total 0.4 mg/dL (0.2-1.3); Blood Urea Nitrogen 9 mg/dL (7-17); Calcium 8.8 mg/dL (8.4-10.2); Carbon Dioxide 30 mmol/L (22-30); Chloride 84 mmol/L (98-107); Estimated CRCL calculation 136 ml/min; Estimated Glomerular Filt Rate > 60; Glucose 118 mg/dL (65-110); Potassium 3.6 mmol/L (3.4-5.0); Sodium 121 mmol/L (137-145)
[2023-12-09] MEDS: lamoTRIgine 100 MG TABLET PO ×2 (08:22→21:47)
[2023-12-09] MEDS: DIVALPROEX SODIUM DR 125 MG TABEC PO ×2 (08:22→16:52)
[2023-12-09] MEDS: LURASIDONE 60 MG PO (08:22)
[2023-12-09] MEDS: SODIUM CHLORIDE 1 GM TABLET PO ×2 (08:22→16:52)
[2023-12-09] MEDS: FUROSEMIDE 20 MG TABLET PO ×2 (08:22→16:52)
[2023-12-09] MEDS: [UNRECOGNIZED DRUG - OTHER] PO (08:22)
[2023-12-09] MEDS: PANTOPRAZOLE 40 MG TABLET PO (10:30)
[2023-12-09 11:34] LABS: Creatinine, Random Urine 26 mg/dL (20-275); Total Prot/Creat ratio mg/mg 0.423 (0.024-0.184); Total Protein/Creatinine Ratio 423 mg/g creat (24-184)
--- NOTE | 2023-12-09 12:28 | PM.PNNEP ---
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 from her anti depressant/anxiety medicines +/- COPD treated with fluid restriction, salt tabs, and lasix at that time risk factors for low sodium: SSRI use lamotrignine use lurasidone use (albeit it is rare) lung disease PPI use evalutaion to date: TSH okay cortisol okay CXR noted SPEP/UPEP and serum/urine osmo pending currently on fluid restriction, salt tabs and oral lasix follow trend of repeat sodium levels (2) Altered mental status: Code(s): R41.82 - Altered mental status, unspecified Status: Acute Assessment and Plan: clinically better at this time (and confirmed by family) however, still with fluctuating agitation unclear if hyponatremia is etiology (since sodium has not improved that much) CT of head negative continue supportive care (3) Chronic respiratory failure with hypoxia: Code(s): J96.11 - Chronic respiratory failure with hypoxia Status: Acute Assessment and Plan: 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 Subjective Date/time seen: 12/09/23 12:28 Interval history: Follow-up for acute on chronic hyponatremia. Sodium level unchanged in the last 24 hours so IVFs discontinued and started on oral lasix with salt tabs; mentation seems better in not back to baseline at the time of my visit; no other acute issues/events overnight or earlier this morning. Exam Narrative: General: elderly but WD/WN female in NAD Heart: normal S1 and S2; no rub Lungs: clear anteriorly Abdomen: soft, nontender, nondistended, positive bowel sounds Extremities: no cyanosis or clubbing; no edema; + LLE splint in place Skin: warm and dry Objective Data Vital Signs Vital Signs: Vital Signs Temp Pulse Resp BP Pulse Ox O2 Del Method O2 Flow Rate 12/09/23 12:00 97.5 F L 99 20 136/85 96 Nasal Cannula 2 12/09/23 10:00 101 H 12/09/23 08:00 96 Nasal Cannula 2 12/09/23 08:00 105 H 12/09/23 08:00 96.8 F L 97 20 140/111 H 97 12/09/23 06:00 98 12/09/23 05:15 97.6 F 92 20 151/102 H 100 12/09/23 04:00 97 Nasal Cannula 2 12/09/23 04:00 94 12/09/23 02:00 98 12/09/23 00:49 97.7 F 99 20 166/104 H 97 12/09/23 00:00 95 Nasal Cannula 2 12/09/23 00:00 100 12/08/23 22:00 100 12/08/23 22:10 98 135/89 12/08/23 20:00 97.5 F L 109 H 20 152/106 H 97 12/08/23 20:00 108 H 12/08/23 20:10 95 Nasal Cannula 2 12/08/23 19:42 95 Nasal Cannula 2 12/08/23 18:00 98 Intake/Output Intake/Output: Intake & Output 12/06/23 12/07/23 12/08/23 12/09/23 23:59 23:59 23:59 23:59 Intake Total 340 2612.5 490 Output Total 150 900 450 Balance 190 1712.5 40 Meds/Results Medications: Active Medications Generic Name Dose Route Start Last Admin Trade Name Freq PRN Reason Stop Dose Admin Divalproex Sodium 125 mg 12/07/23 17:00 12/09/23 08:[address] 125 Mg Tabec PO 125 mg BID LENA Administration Enoxaparin Sodium 40 mg 12/10/23 09:00 Enoxaparin 40 Mg/0.4 Ml Syringe SUB-Q DAILY LENA Furosemide 20 mg 12/09/23 09:00 12/09/23 08:22 Furosemide 20 Mg Tablet PO 20 mg BID LENA Administration Lamotr
--- NOTE | 2023-12-09 12:28 | P.PNNP_ITS ---
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 anti depressant/anxiety medicines +/- COPD * treated with fluid restriction, salt tabs, and lasix at that time * risk factors for low sodium: * SSRI use * lamotrignine use * lurasidone use (albeit it is rare) * lung disease * PPI use * evalutaion to date: * TSH okay * cortisol okay * CXR noted * SPEP/UPEP and serum/urine osmo pending * currently on fluid restriction, salt tabs and oral lasix * follow trend of repeat sodium levels (2) Altered mental status: Code(s): R41.82 - Altered mental status, unspecified Status: Acute Assessment and Plan: * clinically better at this time (and confirmed by family) * however, still with fluctuating agitation * unclear if hyponatremia is etiology (since sodium has not improved that much) * CT of head negative * continue supportive care (3) Chronic respiratory failure with hypoxia: Code(s): J96.11 - Chronic respiratory failure with hypoxia Status: Acute Assessment and Plan: * secondary to COPD and postpolio syndrome * on 2L supplemental oxygen at baseline (4) Essential (primary) hypertension: Code(s): I10 - Essential (primary) hypertension Status: Chronic Assessment and Plan: * fluctuating readings since admission * follow trend of hemodynamics Will continue to follow. Subjective Date/time seen: 12/09/23 12:28 Interval history: Follow-up for acute on chronic hyponatremia. Sodium level unchanged in the last 24 hours so IVFs discontinued and started on oral lasix with salt tabs; mentation seems better in not back to baseline at the time of my visit; no other acute issues/events overnight or earlier this morning. Exam Narrative: General: elderly but WD/WN female in NAD Heart: normal S1 and S2; no rub Lungs: clear anteriorly Abdomen: soft, nontender, nondistended, positive bowel sounds Extremities: no cyanosis or clubbing; no edema; + LLE splint in place Skin: warm and dry Objective Data Vital Signs Vital Signs: Vital Signs Temp Pulse Resp BP Pulse Ox O2 Del Method O2 Flow Rate 12/09/23 12:00 97.5 F L 99 20 136/85 96 Nasal Cannula 2 12/09/23 10:00 101 H 12/09/23 08:00 96 Nasal Cannula 2 12/09/23 08:00 105 H 12/09/23 08:00 96.8 F L 97 20 140/111 H 97 12/09/23 06:00 98 12/09/23 05:15 97.6 F 92 20 151/102 H 100 12/09/23 04:00 97 Nasal Cannula 2 12/09/23 04:00 94 12/09/23 02:00 98 12/09/23 00:49 97.7 F 99 20 166/104 H 97 12/09/23 00:00 95 Nasal Cannula 2 12/09/23 00:00 100 12/08/23 22:00 100 12/08/23 22:10 98 135/89 12/08/23 20:00 97.5 F L 109 H 20 152/106 H 97 12/08/23 20:00 108 H 12/08/23 20:10 95 Nasal Cannula 2 12/08/23 19:42 95 Nasal Cannula 2 12/08/23 18:00
[2023-12-09 13:31] LABS: Sodium 123 mmol/L (137-145)
--- NOTE | 2023-12-09 15:05 | P.PNIM_ITS ---
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 Status: Acute (3) Essential (primary) hypertension: Code(s): I10 - Essential (primary) hypertension Status: Chronic (4) Hyperlipidemia: Qualifiers: Hyperlipidemia type: unspecified Qualified Code(s): E78.5 - Hyperlipidemia, unspecified Code(s): E78.5 - Hyperlipidemia, unspecified Status: Chronic (5) Altered mental status: Code(s): R41.82 - Altered mental status, unspecified Status: Acute (6) Acute encephalopathy: Code(s): G93.40 - Encephalopathy, unspecified Status: Acute Plan Hyponatremia 2/2 drug induced vs lung disease * baseline sodium runs ~ 129 - 136mmol/L since 2019 * nephrology consulted * last hospitalization a few weeks ago, sodium was 130 - 134mmol/L * urine studies Negative * No PNA on imaging * dietitian consulted to evaluate oral intake * Nacl tab 1gm PO BID * Fluid restriction * Likely secondary to medications * lasix 20 mg BID AMS/metabolic encephalopathy-Improving * likely from Hyponatremia * hx of chronic hyponatremia * no acute findings on CT head * baseline patient is alert and oriented x3, and wheelchair bound HTN * titrate home meds with clinical COPD /Postpolio syndrome with Chronic hypoxemic respiratory syndrome * 2 liter oxygen at baseline * currently on baseline oxygen * Continue home bronchodilators * patient is a former smoker 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 * continue monitoring * Pain control if needed Bipolar disorder * continue home meds Thoracic aorta aneurysm * 4.[address] * continue outpatient Imaging for follow-up Depression and anxiety * continue home meds Code status: DNR DVT prophylaxis: Lovenox Stress ulcer prophylaxis: Protonix 40 daily PT/OT notes: Disposition: Patient continues admission to the medical unit for hyponatremia with metabolic encephalopathy a improving sodium 123 today continue with fluid restriction sodium tabs plan will be to discharge back to [facility] when medically stable. Time Spent With Patient Time with patient: 15 - 25 minutes Subjective Date/time seen: 12/09/23 15:05 Interval history: Admission: Medical Chart This is a 73-year-old female with past medical history post-polio syndrome (chronic respiratory failure, wheelchair dependent), bipolar disorder, generalized anxiety disorder, major depressive disorder, hypertension, chronic hyponatremia, GERD who was borught to the ER from longterm on account of decreased responsiveness. Son was at the bedside and noted that he was informed by the NH that she was less alert this morning prompting transfer to the ER. he noted this always happens whenever her sodium goes low. Noted she alert and oriented x3 at baseline but is wheelchair bound. Patient was alert and oriented x2 at the time of this encounter and denies any discomfort. ER eval notable for BP 129/97, WBC 11, hemoglobin 13.2, platelets 399, sodium 120, chloride 79, UA positive for 3+ ketones, blood sugar 102, CTA Chest showed increasing larfe hiatal hernia associated with compressive atelectasis, aortic aneurysm 4.4,
--- NOTE | 2023-12-09 15:05 | PM.IMPN ---
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 Status: Acute (3) Essential (primary) hypertension: Code(s): I10 - Essential (primary) hypertension Status: Chronic (4) Hyperlipidemia: Qualifiers: Hyperlipidemia type: unspecified Qualified Code(s): E78.5 - Hyperlipidemia, unspecified Code(s): E78.5 - Hyperlipidemia, unspecified Status: Chronic (5) Altered mental status: Code(s): R41.82 - Altered mental status, unspecified Status: Acute (6) Acute encephalopathy: Code(s): G93.40 - Encephalopathy, unspecified Status: Acute Plan Hyponatremia 2/2 drug induced vs lung disease baseline sodium runs ~ 129 - 136mmol/L since 2019 nephrology consulted last hospitalization a few weeks ago, sodium was 130 - 134mmol/L urine studies Negative No PNA on imaging dietitian consulted to evaluate oral intake Nacl tab 1gm PO BID Fluid restriction Likely secondary to medications lasix 20 mg BID AMS/metabolic encephalopathy-Improving likely from Hyponatremia hx of chronic hyponatremia no acute findings on CT head baseline patient is alert and oriented x3, and wheelchair bound HTN titrate home meds with clinical COPD /Postpolio syndrome with Chronic hypoxemic respiratory syndrome 2 liter oxygen at baseline currently on baseline oxygen Continue home bronchodilators patient is a former smoker 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ic encephalopathy a improving sodium 123 today continue with fluid restriction sodium tabs plan will be to discharge back to senior care facility when medically stable. Time Spent With Patient Time with patient: 15 - 25 minutes Subjective Date/time seen: 12/09/23 15:05 Interval history: Admission: Medical Chart This is a 73-year-old female with past medical history post-polio syndrome (chronic respiratory failure, wheelchair dependent), bipolar disorder, generalized anxiety disorder, major depressive disorder, hypertension, chronic hyponatremia, GERD who [facility]. Son was at the bedside and noted that he was informed by the NH that she was less alert this morning prompting transfer to the ER. he noted this always happens whenever her sodium goes low. Noted she alert and oriented x3 at baseline but is wheelchair bound. Patient was alert and oriented x2 at the time of this encounter and denies any discomfort. ER eval notable for BP 129/97, WBC 11, hemoglobin 13.2, platelets 399, sodium 120, chloride 79, UA positive for 3+ ketones, blood sugar 102, CTA Chest showed increasing larfe hiatal hernia associated with compressive atelectasis, aortic aneurysm 4.4, chronic T7, and T12 burst fractures iwth 7mm retropulsion with moderate to severe central canal stenosis. CT head no acute changes. Patient was started on IVF prior to admission. 12/09/2023: Assumed Care Patient alert and answered questions appropriately today on complaint was the room was hot. NA up 123 remain on fluid restriction and sodium tabs this likely secondary to her medications, nephrology following. Review of Systems Review of Systems: All systems reviewed & are unremarkable except as
--- NOTE | 2023-12-09 17:57 | PC.NURSE ---
This patient, Kim Samayoa, was received from IMU on 12/09/23 at 1730. Patient/family oriented to unit policies and routines
[2023-12-09 22:42] LABS: Sodium 125 mmol/L (137-145)
[2023-12-10] VITALS (7 sets, daily range): BP systolic 122–137; BP diastolic 72–98; PULSE 86–107; RESP 18–20; TEMP 36–37.1; O2SAT 93–97
--- NOTE | 2023-12-10 04:57 | PC.NURSE ---
Pt did not have much output during shift. Bladder scanned pt this morning and only 57 cc scanned from bladder. Pt had minimal intake of fluids as well.
[2023-12-10 05:08] LABS: Protein, Total 5.9 g/dL (6.1-8.1)
[2023-12-10 05:33] LABS: Hematocrit 34.1 % (37.0-47.0); Hemoglobin 11.5 g/dL (12.0-15.0); Mean Corpuscular HGB Conc 33.7 g/dl (32-36); Mean Platelet Volume 9.3 fl (7.4-10.4); Platelet Count Result 411 k/mm3 (150-375); Red Blood Count 4.11 M/mm3 (4.2-5.4); Red Cell Distribution Width 13.8 % (11.5-14.5); White Blood Count 11.5 K/mm3 (4.5-10.0)
[2023-12-10 06:06] LABS: Alanine Aminotransferase 11 U/L (6-35); Albumin Level 3.8 g/dL (3.5-5.1); Alkaline Phosphatase 74 U/L (38-126); Anion Gap 10 mmol/L (4-12); Aspartate Amino Transferase 21 U/L (14-36); Bilirubin,Total 0.4 mg/dL (0.2-1.3); Blood Urea Nitrogen 11 mg/dL (7-17); Calcium 8.6 mg/dL (8.4-10.2); Carbon Dioxide 31 mmol/L (22-30); Chloride 85 mmol/L (98-107); Estimated CRCL calculation 106 ml/min; Estimated Glomerular Filt Rate > 60; Glucose 99 mg/dL (65-110); Potassium 3.2 mmol/L (3.4-5.0); Sodium 126 mmol/L (137-145)
[2023-12-10] MEDS: POTASSIUM CHLORIDE 20 MEQ ER TABLET 40 MEQ PO (07:35)
[2023-12-10] MEDS: FUROSEMIDE 20 MG TABLET PO ×2 (09:14→18:14)
[2023-12-10] MEDS: PANTOPRAZOLE 40 MG TABLET PO (09:14)
[2023-12-10] MEDS: lamoTRIgine 100 MG TABLET PO ×2 (09:14→21:35)
[2023-12-10] MEDS: [UNRECOGNIZED DRUG - OTHER] PO (09:15)
[2023-12-10] MEDS: LURASIDONE 60 MG PO (09:15)
[2023-12-10] MEDS: SODIUM CHLORIDE 1 GM TABLET PO ×2 (09:15→18:14)
[2023-12-10] MEDS: DIVALPROEX SODIUM DR 125 MG TABEC PO ×2 (09:15→18:14)
[2023-12-10] MEDS: ENOXAPARIN 40 MG/0.4 ML SYRINGE SUB-Q (09:16)
[2023-12-10] MEDS: POTASSIUM CHLORIDE 20 MEQ PACKET (FOR LIQUID) 40 MEQ PO (09:16)
[2023-12-10 12:23] LABS: Albumin 3.6 g/dL (3.8-4.8); Alpha 1 Globulin 0.3 g/dL (0.2-0.3); Alpha 2 Globulin 0.8 g/dL (0.5-0.9); Beta 1 Globulin 0.4 g/dL (0.4-0.6); Gamma Globulin 0.6 g/dL (0.8-1.7)
[2023-12-10] MEDS: POTASSIUM CHLORIDE 20 MEQ ER TABLET PO (12:57)
--- NOTE | 2023-12-10 13:01 | PM.PNNEP ---
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 from her anti depressant/anxiety medicines +/- COPD treated with fluid restriction, salt tabs, and lasix at that time risk factors for low sodium: SSRI use lamotrignine use lurasidone use (albeit it is rare) lung disease PPI use evalutaion to date: TSH okay cortisol okay CXR noted SPEP/UPEP and serum/urine osmo pending currently on fluid restriction, salt tabs and oral lasix follow trend of repeat sodium levels (2) Altered mental status: Code(s): R41.82 - Altered mental status, unspecified Status: Acute Assessment and Plan: clinically better at this time (and confirmed by family) however, still with fluctuating agitation unclear if hyponatremia is etiology (since sodium has not improved that much) CT of head negative continue supportive care (3) Chronic respiratory failure with hypoxia: Code(s): J96.11 - Chronic respiratory failure with hypoxia Status: Acute Assessment and Plan: 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 Subjective Date/time seen: 12/10/23 13:01 Interval history: Follow-up with acute on chronic hyponatremia. Sodium continues to slowly improve with current interventions/therapy to date; somewhat slow to respond when seen today; no apparent distress voiced; no other acute complaints noted. Exam Narrative: General: elderly but WD/WN female in NAD Heart: normal S1 and S2; no rub Lungs: clear anteriorly Abdomen: soft, nontender, nondistended, positive bowel sounds Extremities: no cyanosis or clubbing; no edema; + LLE splint in place Skin: warm and intact Objective Data Vital Signs Vital Signs: Vital Signs Temp Pulse Resp BP Pulse Ox O2 Del Method O2 Flow Rate 12/10/23 12:00 98.7 F 107 H 20 126/98 H 97 12/10/23 08:00 93 Nasal Cannula 2 12/10/23 08:37 93 Nasal Cannula 2 12/10/23 05:02 98.3 F 86 18 137/90 96 12/09/23 20:25 97 Nasal Cannula 2 12/09/23 19:43 97.2 F L 94 18 130/80 97 12/09/23 18:01 98 Nasal Cannula 2 12/09/23 17:40 97.6 F 96 19 125/83 98 Intake/Output Intake/Output: Intake & Output 12/07/23 12/08/23 12/09/23 12/10/23 23:59 23:59 23:59 23:59 Intake Total 340 2612.5 790 300 Output Total 947 661 6550 200 Balance 190 1712.5 -560 100 Meds/Results Medications: Active Medications Generic Name Dose Route Start Last Admin Trade Name Freq PRN Reason Stop Dose Admin Divalproex Sodium 125 mg 12/07/23 17:00 12/10/23 09:[address] 125 Mg Tabec PO 125 mg BID LENA Administration Enoxaparin Sodium 40 mg 12/10/23 09:00 12/10/23 09:16 Enoxaparin 40 Mg/0.4 Ml Syringe SUB-Q 40 mg DAILY LENA Administration Furosemide 20 mg 12/09/23 09:00 12/10/23 09:14 Furosemide 20 Mg Tablet PO 20 mg BID LENA Administration Lamotrigine 100 mg 12/07/23 21:00 12/10/23 09:14 Lamotrigine 100 Mg Tablet PO 100 mg Q12HR LENA Administration Non-Formulary Medication 60 mg 12/08/23 09:00 12/10/23 09:15 Lurasidone PO 01/07/24 08:59 60 mg DAILY LENA Administration Pantoprazole Sodium 40 mg 12/09/23 09:35 12/10/23 09:14 Pantoprazole 40 Mg Tablet PO 40 mg QAM LENA Administration Sodium Chloride 1 gm 12/07/23 17:
--- NOTE | 2023-12-10 13:01 | P.PNNP_ITS ---
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 anti depressant/anxiety medicines +/- COPD * treated with fluid restriction, salt tabs, and lasix at that time * risk factors for low sodium: * SSRI use * lamotrignine use * lurasidone use (albeit it is rare) * lung disease * PPI use * evalutaion to date: * TSH okay * cortisol okay * CXR noted * SPEP/UPEP and serum/urine osmo pending * currently on fluid restriction, salt tabs and oral lasix * follow trend of repeat sodium levels (2) Altered mental status: Code(s): R41.82 - Altered mental status, unspecified Status: Acute Assessment and Plan: * clinically better at this time (and confirmed by family) * however, still with fluctuating agitation * unclear if hyponatremia is etiology (since sodium has not improved that much) * CT of head negative * continue supportive care (3) Chronic respiratory failure with hypoxia: Code(s): J96.11 - Chronic respiratory failure with hypoxia Status: Acute Assessment and Plan: * secondary to COPD and postpolio syndrome * on 2L supplemental oxygen at baseline (4) Essential (primary) hypertension: Code(s): I10 - Essential (primary) hypertension Status: Chronic Assessment and Plan: * fluctuating readings since admission * follow trend of hemodynamics Will continue to follow. Subjective Date/time seen: 12/10/23 13:01 Interval history: Follow-up with acute on chronic hyponatremia. Sodium continues to slowly improve with current interventions/therapy to date; somewhat slow to respond when seen today; no apparent distress voiced; no other acute complaints noted. Exam Narrative: General: elderly but WD/WN female in NAD Heart: normal S1 and S2; no rub Lungs: clear anteriorly Abdomen: soft, nontender, nondistended, positive bowel sounds Extremities: no cyanosis or clubbing; no edema; + LLE splint in place Skin: warm and intact Objective Data Vital Signs Vital Signs: Vital Signs Temp Pulse Resp BP Pulse Ox O2 Del Method O2 Flow Rate 12/10/23 12:00 98.7 F 107 H 20 126/98 H 97 12/10/23 08:00 93 Nasal Cannula 2 12/10/23 08:37 93 Nasal Cannula 2 12/10/23 05:02 98.3 F 86 18 137/90 96 12/09/23 20:25 97 Nasal Cannula 2 12/09/23 19:43 97.2 F L 94 18 130/80 97 12/09/23 18:01 98 Nasal Cannula 2 12/09/23 17:40 97.6 F 96 19 125/83 98 Intake/Output Intake/Output: Intake & Output 12/07/23 12/08/23 12/09/23 12/10/23 23:59 23:59 23:59 23:59 Intake Total 340 2612.5 790 300 Output Total 018 210 4871 200 Balance 190 1712.5 -560 100 Meds/Results Medications: Active Medications Generic Name Dose Route Start Last Admin Trade Name Freq PRN Reason Stop Dose Admin Divalproex Sodium
--- NOTE | 2023-12-10 13:16 | P.PNIM_ITS ---
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 Status: Acute (3) Essential (primary) hypertension: Code(s): I10 - Essential (primary) hypertension Status: Chronic (4) Hyperlipidemia: Qualifiers: Hyperlipidemia type: unspecified Qualified Code(s): E78.5 - Hyperlipidemia, unspecified Code(s): E78.5 - Hyperlipidemia, unspecified Status: Chronic (5) Altered mental status: Code(s): R41.82 - Altered mental status, unspecified Status: Acute (6) Acute encephalopathy: Code(s): G93.40 - Encephalopathy, unspecified Status: Acute Plan Hyponatremia 2/2 drug induced vs lung disease * baseline sodium runs ~ 129 - 136mmol/L since 2019 * nephrology consulted * last hospitalization a few weeks ago, sodium was 130 - 134mmol/L * urine studies Negative * No PNA on imaging * dietitian consulted to evaluate oral intake * Nacl tab 1gm PO BID * Fluid restriction * Likely secondary to medications * lasix 20 mg BID AMS/metabolic encephalopathy-Improving * likely from Hyponatremia * hx of chronic hyponatremia * no acute findings on CT head * baseline patient is alert and oriented x3, and wheelchair bound HTN * titrate home meds with clinical COPD /Postpolio syndrome with Chronic hypoxemic respiratory syndrome * 2 liter oxygen at baseline * currently on baseline oxygen * Continue home bronchodilators * patient is a former smoker 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 * continue monitoring * Pain control if needed Bipolar disorder * continue home meds Thoracic aorta aneurysm * 4.[address] * continue outpatient Imaging for follow-up Depression and anxiety * continue home meds Code status: DNR DVT prophylaxis: Lovenox Stress ulcer prophylaxis: Protonix 40 daily PT/OT notes: Disposition: Patient continues admission to the medical unit for hyponatremia with metabolic encephalopathy a improving sodium 123 today continue with fluid restriction sodium tabs PT/OT pending recs to return to rehab. Time Spent With Patient Time with patient: 15 - 25 minutes Subjective Date/time seen: 12/10/23 13:16 Interval history: Admission: Medical Chart This is a 73-year-old female with past medical history post-polio syndrome (chronic respiratory failure, wheelchair dependent), bipolar disorder, generalized anxiety disorder, major depressive disorder, hypertension, chronic hyponatremia, GERD who was brought to the ER from group home on account of decreased responsiveness. Son was at the bedside and noted that he was informed by the NH that she was less alert this morning prompting transfer to the ER. he noted this always happens whenever her sodium goes low. Noted she alert and oriented x3 at baseline but is wheelchair bound. Patient was alert and oriented x2 at the time of this encounter and denies any discomfort. ER eval notable for BP 129/97, WBC 11, hemoglobin 13.2, platelets 399, sodium 120, chloride 79, UA positive for 3+ ketones, blood sugar 102, CTA Chest showed increasing large hiatal hernia associated with compressive atelectasis, aortic aneurysm 4.4, chronic T7, and T12 burst fractures with 7mm retropul
--- NOTE | 2023-12-10 13:16 | PM.IMPN ---
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 Status: Acute (3) Essential (primary) hypertension: Code(s): I10 - Essential (primary) hypertension Status: Chronic (4) Hyperlipidemia: Qualifiers: Hyperlipidemia type: unspecified Qualified Code(s): E78.5 - Hyperlipidemia, unspecified Code(s): E78.5 - Hyperlipidemia, unspecified Status: Chronic (5) Altered mental status: Code(s): R41.82 - Altered mental status, unspecified Status: Acute (6) Acute encephalopathy: Code(s): G93.40 - Encephalopathy, unspecified Status: Acute Plan Hyponatremia 2/2 drug induced vs lung disease baseline sodium runs ~ 129 - 136mmol/L since 2019 nephrology consulted last hospitalization a few weeks ago, sodium was 130 - 134mmol/L urine studies Negative No PNA on imaging dietitian consulted to evaluate oral intake Nacl tab 1gm PO BID Fluid restriction Likely secondary to medications lasix 20 mg BID AMS/metabolic encephalopathy-Improving likely from Hyponatremia hx of chronic hyponatremia no acute findings on CT head baseline patient is alert and oriented x3, and wheelchair bound HTN titrate home meds with clinical COPD /Postpolio syndrome with Chronic hypoxemic respiratory syndrome 2 liter oxygen at baseline currently on baseline oxygen Continue home bronchodilators patient is a former smoker 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ic encephalopathy a improving sodium 123 today continue with fluid restriction sodium tabs PT/OT pending recs to return to rehab. Time Spent With Patient Time with patient: 15 - 25 minutes Subjective Date/time seen: 12/10/23 13:16 Interval history: Admission: Medical Chart This is a 73-year-old female with past medical history post-polio syndrome (chronic respiratory failure, wheelchair dependent), bipolar disorder, generalized anxiety disorder, major depressive disorder, hypertension, chronic hyponatremia, GERD who was brought to the ER from residential on account of decreased responsiveness. Son was at the bedside and noted that he was informed by the NH that she was less alert this morning prompting transfer to the ER. he noted this always happens whenever her sodium goes low. Noted she alert and oriented x3 at baseline but is wheelchair bound. Patient was alert and oriented x2 at the time of this encounter and denies any discomfort. ER eval notable for BP 129/97, WBC 11, hemoglobin 13.2, platelets 399, sodium 120, chloride 79, UA positive for 3+ ketones, blood sugar 102, CTA Chest showed increasing large hiatal hernia associated with compressive atelectasis, aortic aneurysm 4.4, chronic T7, and T12 burst fractures with 7mm retropulsion with moderate to severe central canal stenosis. CT head no acute changes. Patient was started on IVF prior to admission. 12/09/2023: Assumed Care Patient alert and answered questions appropriately today on complaint was the room was hot. NA up 123 remain on fluid restriction and sodium tabs this likely secondary to her medications, nephrology following. 12/10/2023: Patient in no acute distress, NA 126. Patient lethargic but answer question will ordered PT/OT for evaluation to return to rehab.
[2023-12-11 05:10] LABS: Mean Corpuscular HGB Conc 33.3 g/dl (32-36); Mean Corpuscular Hemoglobin 28.3 pg (26-34); Mean Corpuscular Volume 84.8 fl (80-100); Mean Platelet Volume 9.4 fl (7.4-10.4); Platelet Count Result 397 k/mm3 (150-375); Red Blood Count 3.89 M/mm3 (4.2-5.4); Red Cell Distribution Width 13.9 % (11.5-14.5); White Blood Count 9.8 K/mm3 (4.5-10.0)
[2023-12-11 05:23] LABS: Alanine Aminotransferase 11 U/L (6-35); Albumin Level 3.8 g/dL (3.5-5.1); Alkaline Phosphatase 73 U/L (38-126); Anion Gap 7 mmol/L (4-12); Aspartate Amino Transferase 22 U/L (14-36); Bilirubin,Total 0.4 mg/dL (0.2-1.3); Blood Urea Nitrogen 11 mg/dL (7-17); Carbon Dioxide 31 mmol/L (22-30); Chloride 88 mmol/L (98-107); Estimated CRCL calculation 77 ml/min; Estimated Glomerular Filt Rate > 60; Glucose 99 mg/dL (65-110); Potassium 4.1 mmol/L (3.4-5.0); Sodium 126 mmol/L (137-145)
[2023-12-11 08:00] VITALS: BP 132/93; PULSE 99; RESP 14; TEMP 36.9; O2SAT 97
[2023-12-11 08:34] VITALS: O2SAT 97
[2023-12-11] MEDS: [UNRECOGNIZED DRUG - OTHER] PO (08:40)
[2023-12-11] MEDS: FUROSEMIDE 20 MG TABLET PO ×2 (08:40→17:22)
[2023-12-11] MEDS: LURASIDONE 60 MG PO (08:40)
[2023-12-11] MEDS: DIVALPROEX SODIUM DR 125 MG TABEC PO ×2 (08:41→17:22)
[2023-12-11] MEDS: lamoTRIgine 100 MG TABLET PO (08:41)
[2023-12-11] MEDS: PANTOPRAZOLE 40 MG TABLET PO (08:41)
[2023-12-11] MEDS: SODIUM CHLORIDE 500 MG TABLET 1500 MG PO ×2 (08:41→17:22)
[2023-12-11] MEDS: ENOXAPARIN 40 MG/0.4 ML SYRINGE SUB-Q (08:41)
--- NOTE | 2023-12-11 10:38 | P.PNIM_ITS ---
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 Status: Acute (3) Essential (primary) hypertension: Code(s): I10 - Essential (primary) hypertension Status: Chronic (4) Hyperlipidemia: Qualifiers: Hyperlipidemia type: unspecified Qualified Code(s): E78.5 - Hyperlipidemia, unspecified Code(s): E78.5 - Hyperlipidemia, unspecified Status: Chronic (5) Altered mental status: Code(s): R41.82 - Altered mental status, unspecified Status: Acute (6) Acute encephalopathy: Code(s): G93.40 - Encephalopathy, unspecified Status: Acute (7) Major depressive disorder, single episode, unspecified: Qualifiers: Active/Remission status: remission status unspecified Qualified Code(s): F32.9 - Major depressive disorder, single episode, unspecified Code(s): F32.9 - Major depressive disorder, single episode, unspecified Status: Chronic (8) Generalized anxiety disorder: Code(s): F41.1 - Generalized anxiety disorder Status: Chronic (9) Tremors of nervous system: Code(s): R25.1 - Tremor, unspecified Status: Acute (10) Tardive dyskinesia: Code(s): G24.01 - Drug induced subacute dyskinesia Status: Acute Plan New onset Tremors * Possible tardive dyskensia vs medication withdrawal * Patient was refusing medications the day prior * Patient with multiple recent hopsitalizations due to manic states and placed on new psychiatric medications * Neurology consulted * 06/2023 was transferred to [facility] * was following at [facility] Hyponatremia 2/2 drug induced vs lung disease * baseline sodium runs ~ 129 - 136mmol/L since 2019 * nephrology consulted * last hospitalization a few weeks ago, sodium was 130 - 134mmol/L * urine studies Negative * No PNA on imaging * dietitian consulted to evaluate oral intake * Nacl tab 1gm PO BID * Fluid restriction * Likely secondary to medications * lasix 20 mg BID AMS/metabolic encephalopathy-Improving * likely from Hyponatremia * hx of chronic hyponatremia * no acute findings on CT head * baseline patient is alert and oriented x3, and wheelchair bound HTN * titrate home meds with clinical COPD /Postpolio syndrome with Chronic hypoxemic respiratory syndrome * 2 liter oxygen at baseline * currently on baseline oxygen * Continue home bronchodilators * patient is a former smoker 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 * continue monitoring * Pain control if needed Bipolar disorder * continue home meds Thoracic aorta aneurysm * 4.[address] * continue outpatient Imaging for follow-up Depression and anxiety * continue home meds Code status: DNR DVT prophylaxis: Lovenox Stress ulcer prophylaxis: Protonix 40 daily PT/OT notes: Disposition: Patient continues admission to the medical unit for hyponatremia with metabolic encephalopathy a improving sodium 123 today continue with fluid restriction sodium tabs PT/OT pending recs to return to rehab. Subjective Date/time seen: 12/11/23 10:38 Interval history: Admission: Medical Chart This is a 73
--- NOTE | 2023-12-11 10:38 | PM.IMPN ---
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 Status: Acute (3) Essential (primary) hypertension: Code(s): I10 - Essential (primary) hypertension Status: Chronic (4) Hyperlipidemia: Qualifiers: Hyperlipidemia type: unspecified Qualified Code(s): E78.5 - Hyperlipidemia, unspecified Code(s): E78.5 - Hyperlipidemia, unspecified Status: Chronic (5) Altered mental status: Code(s): R41.82 - Altered mental status, unspecified Status: Acute (6) Acute encephalopathy: Code(s): G93.40 - Encephalopathy, unspecified Status: Acute (7) Major depressive disorder, single episode, unspecified: Qualifiers: Active/Remission status: remission status unspecified Qualified Code(s): F32.9 - Major depressive disorder, single episode, unspecified Code(s): F32.9 - Major depressive disorder, single episode, unspecified Status: Chronic (8) Generalized anxiety disorder: Code(s): F41.1 - Generalized anxiety disorder Status: Chronic (9) Tremors of nervous system: Code(s): R25.1 - Tremor, unspecified Status: Acute (10) Tardive dyskinesia: Code(s): G24.01 - Drug induced subacute dyskinesia Status: Acute Plan New onset Tremors Possible tardive dyskensia vs medication withdrawal Patient was refusing medications the day prior Patient with multiple recent hopsitalizations due to manic states and placed on new psychiatric medications Neurology consulted 06/2023 was transferred to [facility] Psych was following at [facility] Hyponatremia 2/2 drug induced vs lung disease baseline sodium runs ~ 129 - 136mmol/L since 2019 nephrology consulted last hospitalization a few weeks ago, sodium was 130 - 134mmol/L urine studies Negative No PNA on imaging dietitian consulted to evaluate oral intake Nacl tab 1gm PO BID Fluid restriction Likely secondary to medications lasix 20 mg BID AMS/metabolic encephalopathy-Improving likely from Hyponatremia hx of chronic hyponatremia no acute findings on CT head baseline patient is alert and oriented x3, and wheelchair bound HTN titrate home meds with clinical COPD /Postpolio syndrome with Chronic hypoxemic respiratory syndrome 2 liter oxygen at baseline currently on baseline oxygen Continue home bronchodilators patient is a former smoker 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ic encephalopathy a improving sodium 123 today continue with fluid restriction sodium tabs PT/OT pending recs to return to rehab. Subjective Date/time seen: 12/11/23 10:38 Interval history: Admission: Medical Chart This is a 73-year-old female with past medical history post-polio syndrome (chronic respiratory failure, wheelchair dependent), bipolar disorder, generalized anxiety disorder, major depressive disorder, hypertension, chronic hyponatremia, GERD who was brought to the ER from assisted on account of decreased responsiveness. Son was at the bedside and noted that he was informed by the [place] that she was less alert this morning prompting transfer to the ER. he noted this always happens whenever her sodium goes low. Noted she alert and oriented x3 at baseline but is wheelchair boun
--- NOTE | 2023-12-11 11:58 | P.PNNP_ITS ---
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 from her anti depressant/anxiety medicines +/- COPD * treated with fluid restriction, salt tabs, and lasix at that time * risk factors for low sodium: * SSRI use * lamotrignine use * lurasidone use (albeit it is rare) * lung disease * PPI use * evalutaion to date: * TSH okay * cortisol okay * CXR noted * SPEP/UPEP and serum/urine osmo pending * currently on fluid restriction, salt tabs and oral lasix * will increase dose of salt tabs and considering adjusting fluid restriction * follow trend of repeat sodium levels (2) Altered mental status: Code(s): R41.82 - Altered mental status, unspecified Status: Acute Assessment and Plan: * clinically better at this time (and confirmed by family) * however, still with fluctuating agitation * unclear if hyponatremia is etiology * CT of head negative * continue supportive care (3) Chronic respiratory failure with hypoxia: Code(s): J96.11 - Chronic respiratory failure with hypoxia Status: Acute Assessment and Plan: * secondary to COPD and postpolio syndrome * on 2L supplemental oxygen at baseline (4) Essential (primary) hypertension: Code(s): I10 - Essential (primary) hypertension Status: Chronic Assessment and Plan: * fluctuating readings since admission * follow trend of hemodynamics Will continue to follow. Subjective Date/time seen: 12/11/23 11:58 Interval history: Follow-up with acute on chronic hyponatremia. Sodium relatively stable by reenting (but no better in the last 24 hours); on/of f agitation noted as well; continues to have frequent jerking movements in extremities (possible tardive dyskinesia?); Neurology consulted. Exam Narrative: General: elderly but WD/WN female in NAD Heart: normal S1 and S2; no rub Lungs: clear anteriorly Abdomen: soft, nontender, nondistended, positive bowel sounds Extremities: no cyanosis or clubbing; no edema; + LLE splint in place Skin: no rash Objective Data Vital Signs Vital Signs: Vital Signs Temp Pulse Resp BP Pulse Ox O2 Del Method O2 Flow Rate 12/11/23 08:34 97 Nasal Cannula 2 12/11/23 08:00 98.4 F 99 14 132/93 H 97 12/10/23 21:31 97 Nasal Cannula 2 12/10/23 23:40 96.8 F L 99 18 122/72 95 12/10/23 19:26 96.8 F L 91 18 132/84 97 Intake/Output Intake/Output: Intake & Output 12/08/23 12/09/23 12/10/23 12/11/23 23:59 23:59 23:59 23:59 Intake Total 2612.5 790 620 300 Output Total 900 1350 200 Balance 1712.5 -560 420 300 Meds/Results Medications: Active Medications Generic Name Dose Route Start Last Admin Trade Name Freq PRN Reason Stop Dose Admin Divalproex Sodium 125 mg 12/07/23 17:00 12/11/23 08:[address] 125 Mg Tabec PO
--- NOTE | 2023-12-11 11:58 | PM.PNNEP ---
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 from her anti depressant/anxiety medicines +/- COPD treated with fluid restriction, salt tabs, and lasix at that time risk factors for low sodium: SSRI use lamotrignine use lurasidone use (albeit it is rare) lung disease PPI use evalutaion to date: TSH okay cortisol okay CXR noted SPEP/UPEP and serum/urine osmo pending currently on fluid restriction, salt tabs and oral lasix will increase dose of salt tabs and considering adjusting fluid restriction follow trend of repeat sodium levels (2) Altered mental status: Code(s): R41.82 - Altered mental status, unspecified Status: Acute Assessment and Plan: clinically better at this time (and confirmed by family) however, still with fluctuating agitation unclear if hyponatremia is etiology CT of head negative continue supportive care (3) Chronic respiratory failure with hypoxia: Code(s): J96.11 - Chronic respiratory failure with hypoxia Status: Acute Assessment and Plan: 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 Subjective Date/time seen: 12/11/23 11:58 Interval history: Follow-up with acute on chronic hyponatremia. Sodium relatively stable by reenting (but no better in the last 24 hours); on/off agitation noted as well; continues to have frequent jerking movements in extremities (possible tardive dyskinesia?); Neurology consulted. Exam Narrative: General: elderly but WD/WN female in NAD Heart: normal S1 and S2; no rub Lungs: clear anteriorly Abdomen: soft, nontender, nondistended, positive bowel sounds Extremities: no cyanosis or clubbing; no edema; + LLE splint in place Skin: no rash Objective Data Vital Signs Vital Signs: Vital Signs Temp Pulse Resp BP Pulse Ox O2 Del Method O2 Flow Rate 12/11/23 08:34 97 Nasal Cannula 2 12/11/23 08:00 98.4 F 99 14 132/93 H 97 12/10/23 21:31 97 Nasal Cannula 2 12/10/23 23:40 96.8 F L 99 18 122/72 95 12/10/23 19:26 96.8 F L 91 18 132/84 97 Intake/Output Intake/Output: Intake & Output 12/08/23 12/09/23 12/10/23 12/11/23 23:59 23:59 23:59 23:59 Intake Total 2612.5 790 620 300 Output Total 900 1350 200 Balance 1712.5 -560 420 300 Meds/Results Medications: Active Medications Generic Name Dose Route Start Last Admin Trade Name Freq PRN Reason Stop Dose Admin Divalproex Sodium 125 mg 12/07/23 17:00 12/11/23 08:[address] 125 Mg Tabec PO 125 mg BID LENA Administration Enoxaparin Sodium 40 mg 12/10/23 09:00 12/11/23 08:41 Enoxaparin 40 Mg/0.4 Ml Syringe SUB-Q 40 mg DAILY LENA Administration Furosemide 20 mg 12/09/23 09:00 12/11/23 08:40 Furosemide 20 Mg Tablet PO 20 mg BID LENA Administration Lamotrigine 100 mg 12/07/23 21:00 12/11/23 08:41 Lamotrigine 100 Mg Tablet PO 100 mg Q12HR LENA Administration Non-Formulary Medication 60 mg 12/08/23 09:00 12/11/23 08:40 Lurasidone PO 01/07/24 08:59 60 mg DAILY LENA Administration Pantoprazole Sodium 40 mg 12/09/23 09:35 12/11/23 08:41 Pantoprazole 40 Mg Tablet PO 40 mg QAM LENA Administration Sodium Chloride 1,500 mg 12/11/23 09:00 12/11/23 08:41 Sodium Chloride 500 Mg Tablet PO 1,500
--- NOTE | 2023-12-11 13:12 | PCPTNOTE ---
Attempted PT evaluation, pt initially agreeable to therapy if she could have clothes on. Pt was provided hospital pants. However, pt declined to wear the pants due to being too big in size (pt's clothes not present in room). Pt was encouraged and educated on benefits of participating with therapy. Pt declined then began only stating call Jennifer. CASTELLANOS aware. Will follow.
--- NOTE | 2023-12-11 14:29 | PCOTNOTE ---
Attempted to see pt for OT evaluation however pt is refusing to work with therapy at this time. Pt is sitting up in bed with BUE shaking and facial shaking and perseverating on wanting her daughter Rose called. No attempts at re-direction were successful. Will continue to follow.
[2023-12-11 15:18] VITALS: BP 103/78; PULSE 100; RESP 14; TEMP 37; O2SAT 96
--- NOTE | 2023-12-11 17:41 | WPDNEURCNPN ---
Assessment and Plan Assessment and plan (1) Tardive dyskinesia: Code(s): G24.01 - Drug induced subacute dyskinesia Status: Acute Assessment and Plan: Patient has history of psychiatric problems for at least 18 years according to the daughter and she has been on major tranquilizers and she still is. The treatment of tardive dyskinesia can be difficult and sometimes the treatment can induce other psychiatric problems and hence the treatment with the tetrabenazine or other new word elevated such as Austedo should be done with the noted by a psychiatrist. Sometimes depression can be a significant side effect in some cases. Plan I fell discuss this further with the hospitalist team before we begin treatment with tetrabenazine or Austedo in view of the risk of side effects. Sometimes low-dose Klonopin or benzodiazepines may be helpful. I have taken liberty to order serum ceruloplasmin and with asthma allan acid level and B12 and folate TSH to complete the workup from Neurology point of view. Consult date: 12/11/23 HPI: Kim Samayoa is a 73 year old female History of chronic mental illness was seen for initial evaluation for movement disorder. When I approached her she used to be seen and asked me to leave. Her daughter and [id number] were here and the tried the best to help understand the reason for my seeing her but she does not want to even touch her. It was noted that she has constant movement of both hands. Her daughter states that this dates back to almost 18 years and there was a time that the tremors appeared less significant for 8 months. Intermittently there have been some fluctuations over the course of time. She used to be on major tranquilizers in the past the names were however not available. Current list of medications reviewed. She is also on Reglan. She gets into confusional state attributed to hypo natremia. Her serum sodium drops down frequently and she has had hospitalizations in the past for the same reason. Also she gets urinary tract infection according to daughter. She was in assisted living and then in a [facility] for while. And from the records. The patient has poor mobility and also has polio affecting her left lower limb in childhood and she has specialized braces despite that she still requires a walker to get around under separate reason. She is able to swallow and also able to talk. Review of Systems Review of Systems: ROS unobtainable: Yes unobtainable due to mental status [facility] Past Medical History Medical History Adult failure to thrive Bipolar disorder Chronic respiratory failure with hypoxia Essential (primary) hypertension Gastro-esophageal reflux disease with esophagitis, without bleeding Generalized anxiety disorder Hyperlipidemia Hypo-osmolality and hyponatremia Hyponatremia Hypoxemia Major depressive disorder, single episode, unspecified Muscle weakness (generalized) Need for assistance with personal care Pain of left lower extremity Post-polio syndrome Unsteadiness on feet Wellness examination Wheezing Surgical History Surgical History H/O: hysterectomy History of arthroplasty of both wrists right wrist History of hip surgery Partial left hip replacement at [place] Status post electroconvulsive therapy Family History Family History Father Hypertension Family history of diabetes mellitus in first degree relative Family history of lung cancer Mother Family history of thyroid disease Other Hyponatremia Social History Social History Social History: Pablo ([place]). She has two children. She is retired. She used to work at a [employer] and in the [employer] at [employer]. She is a lifelong non-smoker. She reports occasional alcohol use
--- NOTE | 2023-12-11 22:15 | PC.NURSE ---
1914 Patient refusing care. Upon entering room and introducing myself, patient looked at me and stated No and proceeded to roll over and close eyes. Several assessment questions and redirecting attempted with no response from patient. Asked patient if she just wanted to be left alone and pt shook her head yes. Left alone at this time. 2014 & 2129- attempted to give pt her medications, scanned bracelet and patient swatted my hand away. Offered pill with water, pt refused to open eyes or take medication. Attempted to try using pudding and patient continued to refuse. Documented on
[2023-12-12] VITALS: BP 108/50; RESP 18; TEMP 36.3
[2023-12-12 04:55] LABS: Hematocrit 33.4 % (37.0-47.0); Hemoglobin 11.2 g/dL (12.0-15.0); Mean Corpuscular HGB Conc 33.5 g/dl (32-36); Mean Corpuscular Hemoglobin 28.6 pg (26-34); Mean Corpuscular Volume 85.2 fl (80-100); Mean Platelet Volume 9.2 fl (7.4-10.4); Platelet Count Result 416 k/mm3 (150-375); Red Blood Count 3.92 M/mm3 (4.2-5.4); Red Cell Distribution Width 14.1 % (11.5-14.5); White Blood Count 10.4 K/mm3 (4.5-10.0)
[2023-12-12 05:05] LABS: Alanine Aminotransferase 12 U/L (6-35); Albumin Level 3.7 g/dL (3.5-5.1); Alkaline Phosphatase 76 U/L (38-126); Anion Gap 9 mmol/L (4-12); Aspartate Amino Transferase 22 U/L (14-36); Bilirubin,Total 0.4 mg/dL (0.2-1.3); Blood Urea Nitrogen 14 mg/dL (7-17); Calcium 8.9 mg/dL (8.4-10.2); Carbon Dioxide 32 mmol/L (22-30); Chloride 89 mmol/L (98-107); Estimated CRCL calculation 77 ml/min; Estimated Glomerular Filt Rate > 60; Glucose 98 mg/dL (65-110); Potassium 3.7 mmol/L (3.4-5.0); Sodium 130 mmol/L (137-145)
[2023-12-12 05:22] LABS: Vitamin D 25 Hydroxy 54.8 ng/mL
[2023-12-12 06:19] LABS: Folic Acid > 20.0 ng/mL (2.76->20); Vitamin B12 > 1000.0 pg/mL (239-931)
--- NOTE | 2023-12-12 08:12 | P.PNIM_ITS ---
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 Status: Acute (3) Essential (primary) hypertension: Code(s): I10 - Essential (primary) hypertension Status: Chronic (4) Hyperlipidemia: Qualifiers: Hyperlipidemia type: unspecified Qualified Code(s): E78.5 - Hyperlipidemia, unspecified Code(s): E78.5 - Hyperlipidemia, unspecified Status: Chronic (5) Altered mental status: Code(s): R41.82 - Altered mental status, unspecified Status: Acute (6) Acute encephalopathy: Code(s): G93.40 - Encephalopathy, unspecified Status: Acute (7) Major depressive disorder, single episode, unspecified: Qualifiers: Active/Remission status: remission status unspecified Qualified Code(s): F32.9 - Major depressive disorder, single episode, unspecified Code(s): F32.9 - Major depressive disorder, single episode, unspecified Status: Chronic (8) Generalized anxiety disorder: Code(s): F41.1 - Generalized anxiety disorder Status: Chronic (9) Tremors of nervous system: Code(s): R25.1 - Tremor, unspecified Status: Acute (10) Tardive dyskinesia: Code(s): G24.01 - Drug induced subacute dyskinesia Status: Acute Assessment and Plan: - neurology is consulted- appreciate recommendations - notes reviewed: Patient has history of psychiatric problems for at least 18 years according to the daughter and she has been on major tranquilizers and she still is. The treatment of tardive dyskinesia can be difficult and sometimes the treatment can induce other psychiatric problems and hence the treatment with the tetrabenazine or other new word elevated such as Austedo should be done with the noted by a psychiatrist. Sometimes depression can be a significant side effect in some cases...... Sometimes low-dose Klonopin or benzodiazepines may be helpful. I have taken liberty to order serum ceruloplasmin and with asthma allan acid level and B12 and folate TSH to complete the workup from Neurology point of view. Plan New onset Tremors * Possible tardive dyskensia vs medication withdrawal * Patient was refusing medications the day prior * Patient with multiple recent hopsitalizations due to manic states and placed on new psychiatric medications * Neurology consulted * 06/2023 was transferred to [facility] * was following at [place] Hyponatremia 2/2 drug induced vs lung disease * baseline sodium runs ~ 129 - 136mmol/L since 2019 * nephrology consulted * last hospitalization a few weeks ago, sodium was 130 - 134mmol/L * urine studies Negative * No PNA on imaging * dietitian consulted to evaluate oral intake * Nacl tab 1gm PO BID * Fluid restriction * Likely secondary to medications * lasix 20 mg BID AMS/metabolic encephalopathy-Improving * likely from Hyponatremia * hx of chronic hyponatremia * no acute findings on CT head * baseline patient is alert and oriented x3, and wheelchair bound HTN * titrate home meds * 108/50- monitor COPD /Postpolio syndrome with Chronic hypoxemic respiratory syndrome * 2 liter oxygen at baseline * currently on baseline oxygen * Continue home bronchodilators * patient is a former smoker 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
--- NOTE | 2023-12-12 08:12 | PM.IMPN ---
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 Status: Acute (3) Essential (primary) hypertension: Code(s): I10 - Essential (primary) hypertension Status: Chronic (4) Hyperlipidemia: Qualifiers: Hyperlipidemia type: unspecified Qualified Code(s): E78.5 - Hyperlipidemia, unspecified Code(s): E78.5 - Hyperlipidemia, unspecified Status: Chronic (5) Altered mental status: Code(s): R41.82 - Altered mental status, unspecified Status: Acute (6) Acute encephalopathy: Code(s): G93.40 - Encephalopathy, unspecified Status: Acute (7) Major depressive disorder, single episode, unspecified: Qualifiers: Active/Remission status: remission status unspecified Qualified Code(s): F32.9 - Major depressive disorder, single episode, unspecified Code(s): F32.9 - Major depressive disorder, single episode, unspecified Status: Chronic (8) Generalized anxiety disorder: Code(s): F41.1 - Generalized anxiety disorder Status: Chronic (9) Tremors of nervous system: Code(s): R25.1 - Tremor, unspecified Status: Acute (10) Tardive dyskinesia: Code(s): G24.01 - Drug induced subacute dyskinesia Status: Acute Assessment and Plan: - neurology is consulted- appreciate recommendations - notes reviewed: Patient has history of psychiatric problems for at least 18 years according to the daughter and she has been on major tranquilizers and she still is. The treatment of tardive dyskinesia can be difficult and sometimes the treatment can induce other psychiatric problems and hence the treatment with the tetrabenazine or other new word elevated such as Austedo should be done with the noted by a psychiatrist. Sometimes depression can be a significant side effect in some cases...... Sometimes low-dose Klonopin or benzodiazepines may be helpful. I have taken liberty to order serum ceruloplasmin and with asthma allan acid level and B12 and folate TSH to complete the workup from Neurology point of view. Plan New onset Tremors Possible tardive dyskensia vs medication withdrawal Patient was refusing medications the day prior Patient with multiple recent hopsitalizations due to manic states and placed on new psychiatric medications Neurology consulted 06/2023 was transferred to [facility] Psych was following at [place] Hyponatremia 2/2 drug induced vs lung disease baseline sodium runs ~ 129 - 136mmol/L since 2018 nephrology consulted last hospitalization a few weeks ago, sodium was 130 - 134mmol/L urine studies Negative No PNA on imaging dietitian consulted to evaluate oral intake Nacl tab 1gm PO BID Fluid restriction Likely secondary to medications lasix 20 mg BID AMS/metabolic encephalopathy-Improving likely from Hyponatremia hx of chronic hyponatremia no acute findings on CT head baseline patient is alert and oriented x3, and wheelchair bound HTN titrate home meds 108/50- monitor COPD /Postpolio syndrome with Chronic hypoxemic respiratory syndrome 2 liter oxygen at baseline currently on baseline oxygen Continue home bronchodilators patient is a former smoker 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
--- NOTE | 2023-12-12 08:32 | PCPTNOTE ---
Attempted to see patient for evaluation, but nursing recommends to try in PM when family is present and patyient may be more agreeable to working with therapy. Will attempt again as tiome allows.
--- NOTE | 2023-12-12 08:41 | PCOTNOTE ---
Attempted to see patient for evaluation, but patient is refusing care. Nursing recommends to try in PM when family is present and patient may be more agreeable to working with therapy. Will attempt again as time allows.
--- NOTE | 2023-12-12 09:19 | PC.NURSE ---
Addendum entered by Charlotte Silva RN 12/12/23 09:32: Spoke to daughter Rose regarding AM care. Daughter provider us with phone number to patient's psychiatrist Raiza Amado . Daughter also requesting we speak to son Gianluca as he is more readily available today (12/11). Original Note: Patient refusing all attempts of care this AM. Provider aware. Voicemail left with daughter for an update.
--- NOTE | 2023-12-12 13:14 | P.PNNP_ITS ---
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 I am not sure how closely she was following the fluid restriction. * Right now her sodium level is up to 130. * Her potassium has been low but today is okay. * I think since her sodium was so good we can stop the furosemide continue the salt tablets and fluid restriction. * Will check another sodium tomorrow and see how this does (2) Altered mental status: Code(s): R41.82 - Altered mental status, unspecified Status: Acute Assessment and Plan: * clinically better at this time (and confirmed by family) * he is still very anxious * she also has a large amplitude tremor * The patient has been refusing medicines and so she has not had her usual dose of meds lately which is what the son is suspecting is causing these symptoms. * neurology is going to see the patient help out with this. (3) Chronic respiratory failure with hypoxia: Code(s): J96.11 - Chronic respiratory failure with hypoxia Status: Acute Assessment and Plan: * secondary to COPD and postpolio syndrome * on 2L supplemental oxygen at baseline (4) Essential (primary) hypertension: Code(s): I10 - Essential (primary) hypertension Status: Chronic Assessment and Plan: * fluctuating readings since admission * Systolic is ranging from 103-132 lately. * Will follow along on the current antihypertensive regimen. Subjective Date/time seen: 12/12/23 13:14 Interval history: Ms. Samayoa is very nervous and jittery. Son is in the room we discussed the case. Exam Narrative: General: WD/WN female in NAD patient would not allow me to examine her Heart/lungs/abdomen Extremities: no cyanosis or clubbing; no edema; + LLE splint in place Skin: no rash Or subcu nodules Objective Data Vital Signs Vital Signs: Vital Signs - 24 hr 12/11/23 15:18 12/12/23 00:00 12/12/23 08:30 Temperature 98.6 F 97.4 F L Pulse Rate 100 Respiratory Rate 14 18 Blood Pressure 103/78 108/50 L Pulse Oximetry 96 Oxygen Delivery Nasal Cannula Oxygen Flow Rate 2 Intake/Output Intake/Output: Intake & Output 12/09/23 12/10/23 12/11/23 12/12/23 23:59 23:59 23:59 23:59 Intake Total 790 620 400 Output Total 1350 200 2 Balance -560 420 400 -2 Meds/Results Medications: Active Medications Generic Name Dose Route Start Last Admin
--- NOTE | 2023-12-12 13:14 | PM.PNNEP ---
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 I am not sure how closely she was following the fluid restriction. Right now her sodium level is up to 130. Her potassium has been low but today is okay. I think since her sodium was so good we can stop the furosemide continue the salt tablets and fluid restriction. Will check another sodium tomorrow and see how this does (2) Altered mental status: Code(s): R41.82 - Altered mental status, unspecified Status: Acute Assessment and Plan: clinically better at this time (and confirmed by family) he is still very anxious she also has a large amplitude tremor The patient has been refusing medicines and so she has not had her usual dose of meds lately which is what the son is suspecting is causing these symptoms. neurology is going to see the patient help out with this. (3) Chronic respiratory failure with hypoxia: Code(s): J96.11 - Chronic respiratory failure with hypoxia Status: Acute Assessment and Plan: secondary to COPD and postpolio syndrome on 2L supplemental oxygen at baseline (4) Essential (primary) hypertension: Code(s): I10 - Essential (primary) hypertension Status: Chronic Assessment and Plan: fluctuating readings since admission Systolic is ranging from 103-132 lately. Will follow along on the current antihypertensive regimen. Subjective Date/time seen: 12/12/23 13:14 Interval history: Ms. Samayoa is very nervous and jittery. Son is in the room we discussed the case. Exam Narrative: General: WD/WN female in NAD patient would not allow me to examine her Heart/lungs/abdomen Extremities: no cyanosis or clubbing; no edema; + LLE splint in place Skin: no rash Or subcu nodules Objective Data Vital Signs Vital Signs: Vital Signs - 24 hr 12/11/23 15:18 12/12/23 00:00 12/12/23 08:30 Temperature 98.6 F 97.4 F L Pulse Rate 100 Respiratory Rate 14 18 Blood Pressure 103/78 108/50 L Pulse Oximetry 96 Oxygen Delivery Nasal Cannula Oxygen Flow Rate 2 Intake/Output Intake/Output: Intake & Output 12/09/23 12/10/23 12/11/23 12/12/23 23:59 23:59 23:59 23:59 Intake Total 790 620 400 Output Total 1350 200 2 Balance -560 420 400 -2 Meds/Results Medications: Active Medications Generic Name Dose Route Start Last Admin Trade Name Freq PRN Reason Stop Dose Admin Divalproex Sodium 125 mg 12/07/23 17:00 12/12/23 09:[address] 125 Mg Tabec PO Not Given BID LENA Enoxaparin Sodium 40 mg 12/10/23 09:00 12/12/23 09:26 Enoxaparin 40 Mg/0.4 Ml Syringe SUB-Q Not Given DAILY LENA Furosemide 20 mg 12/09/23 09:00 12/12/23 09:26 Furosemide 20 Mg Tablet PO Not Given BID LENA Lamotrigine 100 mg 12/07/23 21:00 12/12/23 09:26 Lamotrigine 100 Mg Tablet PO Not Given Q12HR LENA Non-Formulary Medication 60 mg 12/08/23 09:00 12/12/23 09:26 Lurasidone PO 01/07/24 08:59 Not Given DAILY LENA Pantoprazole Sodium 40 mg 12/09/23 09:35 12/12/23 09:26 Pantoprazole 40 Mg Tablet PO Not Given QAM LENA Sod
[2023-12-12 15:13] VITALS: BP 103/47; PULSE 100; RESP 24; TEMP 37; O2SAT 95
--- NOTE | 2023-12-12 16:48 | PC.NURSE ---
Addendum entered by Charlotte Silva RN 12/12/23 19:44: Family did not come up for dinner this evening. Continues to refuse physical assessment and medications. Swats at nursing staff to leave her alone. Original Note: Patient continues to refuse physical assessment. States she will let us when her mom comes up this evening.
[2023-12-12] MEDS: lamoTRIgine 100 MG TABLET PO (20:49)
[2023-12-13] VITALS: BP 108/51; PULSE 97; RESP 18; TEMP 36.3; O2SAT 98
[2023-12-13 05:43] LABS: Hemoglobin 11.5 g/dL (12.0-15.0); Mean Corpuscular HGB Conc 32.9 g/dl (32-36); Mean Corpuscular Hemoglobin 28.1 pg (26-34); Mean Corpuscular Volume 85.6 fl (80-100); Mean Platelet Volume 8.9 fl (7.4-10.4); Platelet Count Result 441 k/mm3 (150-375); Red Blood Count 4.09 M/mm3 (4.2-5.4); Red Cell Distribution Width 13.8 % (11.5-14.5); White Blood Count 10.6 K/mm3 (4.5-10.0)
[2023-12-13 05:55] LABS: Alanine Aminotransferase 12 U/L (6-35); Albumin Level 3.7 g/dL (3.5-5.1); Alkaline Phosphatase 78 U/L (38-126); Anion Gap 8 mmol/L (4-12); Aspartate Amino Transferase 19 U/L (14-36); Bilirubin,Total 0.4 mg/dL (0.2-1.3); Blood Urea Nitrogen 16 mg/dL (7-17); Calcium 8.8 mg/dL (8.4-10.2); Carbon Dioxide 32 mmol/L (22-30); Chloride 91 mmol/L (98-107); Estimated CRCL calculation 94 ml/min; Estimated Glomerular Filt Rate > 60; Glucose 99 mg/dL (65-110); Phosphorus 3.5 mg/dL (2.5-4.5); Potassium 3.8 mmol/L (3.4-5.0); Sodium 131 mmol/L (137-145)
[2023-12-13 06:39] VITALS: BP 107/64; PULSE 94; RESP 18; TEMP 36.3; O2SAT 96
--- NOTE | 2023-12-13 07:57 | PCOTNOTE ---
Attempted OT evaluation. Per RN patient is refusing care.
[2023-12-13 08:32] VITALS: O2SAT 96
[2023-12-13] MEDS: SODIUM CHLORIDE 500 MG TABLET 1500 MG PO ×2 (08:37→17:26)
[2023-12-13] MEDS: PANTOPRAZOLE 40 MG TABLET PO (08:37)
[2023-12-13] MEDS: lamoTRIgine 100 MG TABLET PO (08:37)
[2023-12-13] MEDS: DIVALPROEX SODIUM DR 125 MG TABEC PO ×2 (08:37→17:26)
[2023-12-13] MEDS: [UNRECOGNIZED DRUG - OTHER] PO (08:39)
[2023-12-13] MEDS: LURASIDONE 60 MG PO (08:39)
[2023-12-13 09:48] VITALS: O2SAT 97
--- NOTE | 2023-12-13 10:19 | P.PNIM_ITS ---
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 Status: Acute (3) Essential (primary) hypertension: Code(s): I10 - Essential (primary) hypertension Status: Chronic (4) Hyperlipidemia: Qualifiers: Hyperlipidemia type: unspecified Qualified Code(s): E78.5 - Hyperlipidemia, unspecified Code(s): E78.5 - Hyperlipidemia, unspecified Status: Chronic (5) Altered mental status: Code(s): R41.82 - Altered mental status, unspecified Status: Acute (6) Acute encephalopathy: Code(s): G93.40 - Encephalopathy, unspecified Status: Acute (7) Major depressive disorder, single episode, unspecified: Qualifiers: Active/Remission status: remission status unspecified Qualified Code(s): F32.9 - Major depressive disorder, single episode, unspecified Code(s): F32.9 - Major depressive disorder, single episode, unspecified Status: Chronic (8) Generalized anxiety disorder: Code(s): F41.1 - Generalized anxiety disorder Status: Chronic (9) Tremors of nervous system: Code(s): R25.1 - Tremor, unspecified Status: Acute (10) Tardive dyskinesia: Code(s): G24.01 - Drug induced subacute dyskinesia Status: Acute Plan New onset Tremors/dyskinesia * Possible tardive dyskensia vs medication withdrawal * Patient was refusing medications the day prior * Patient with multiple recent hospitalizations due to manic states and placed on new psychiatric medications * Neurology consulted * 06/2023 was transferred to [facility] * was following at [facility] 12/12 * Ativan PRN * still refusing medications Hyponatremia 2/2 drug induced vs lung disease-Improved * baseline sodium runs ~ 129 - 136mmol/L since 2019 * nephrology consulted * last hospitalization a few weeks ago, sodium was 130 - 134mmol/L * urine studies Negative * No PNA on imaging * dietitian consulted to evaluate oral intake * Nacl tab 1gm PO BID * Fluid restriction * Likely secondary to medications * lasix 20 mg BID 12/12 * Lasix D/C * NA131 * continue with NA tabs and fluid restriction AMS/metabolic encephalopathy-Improving * likely from Hyponatremia * hx of chronic hyponatremia * no acute findings on CT head * baseline patient is alert and oriented x3, and wheelchair bound HTN * titrate home meds * 108/50- monitor COPD /Postpolio syndrome with Chronic hypoxemic respiratory syndrome * 2 liter oxygen at baseline * currently on baseline oxygen * Continue home bronchodilators * patient is a former smoker 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
--- NOTE | 2023-12-13 10:19 | PM.IMPN ---
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 Status: Acute (3) Essential (primary) hypertension: Code(s): I10 - Essential (primary) hypertension Status: Chronic (4) Hyperlipidemia: Qualifiers: Hyperlipidemia type: unspecified Qualified Code(s): E78.5 - Hyperlipidemia, unspecified Code(s): E78.5 - Hyperlipidemia, unspecified Status: Chronic (5) Altered mental status: Code(s): R41.82 - Altered mental status, unspecified Status: Acute (6) Acute encephalopathy: Code(s): G93.40 - Encephalopathy, unspecified Status: Acute (7) Major depressive disorder, single episode, unspecified: Qualifiers: Active/Remission status: remission status unspecified Qualified Code(s): F32.9 - Major depressive disorder, single episode, unspecified Code(s): F32.9 - Major depressive disorder, single episode, unspecified Status: Chronic (8) Generalized anxiety disorder: Code(s): F41.1 - Generalized anxiety disorder Status: Chronic (9) Tremors of nervous system: Code(s): R25.1 - Tremor, unspecified Status: Acute (10) Tardive dyskinesia: Code(s): G24.01 - Drug induced subacute dyskinesia Status: Acute Plan New onset Tremors/dyskinesia Possible tardive dyskensia vs medication withdrawal Patient was refusing medications the day prior Patient with multiple recent hospitalizations due to manic states and placed on new psychiatric medications Neurology consulted 06/2023 was transferred to [facility] Psych was following at [facility] 12/12 Ativan PRN still refusing medications Hyponatremia 2/2 drug induced vs lung disease-Improved baseline sodium runs ~ 129 - 136mmol/L since 2019 nephrology consulted last hospitalization a few weeks ago, sodium was 130 - 134mmol/L urine studies Negative No PNA on imaging dietitian consulted to evaluate oral intake Nacl tab 1gm PO BID Fluid restriction Likely secondary to medications lasix 20 mg BID 12/12 Lasix D/C NA131 continue with NA tabs and fluid restriction AMS/metabolic encephalopathy-Improving likely from Hyponatremia hx of chronic hyponatremia no acute findings on CT head baseline patient is alert and oriented x3, and wheelchair bound HTN titrate home meds 108/50- monitor COPD /Postpolio syndrome with Chronic hypoxemic respiratory syndrome 2 liter oxygen at baseline currently on baseline oxygen Continue home bronchodilators patient is a former smoker 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 with 7mm repulsion and moderate to severe central canal stenosis patient at Baseline continue monitoring Pain control if needed Bipolar disorder continue home meds Thoracic aorta aneurysm 4.[address] continue outpatient Imaging for follow-up Depression and anxiety continue home meds Code status: DNR DVT prophylaxis: Lovenox Stress ulcer prophylaxis: Protonix 40 daily PT/OT notes: [facility] Disposition: Patient continues admission to the medical unit NA 131 today but patient refusing medications and continues with new acute tremors/dyskensa, trialing IV ativan patient went into manic state prior admission requiring inpatient psychiatric care at [facility]. Time Spent With Patient Time with patient: 15 - 25 minutes Subjective Date/time seen: 12/13/23 10:19 Interval history: Admission: Medical Chart This is a 73-year-old female with past medical history post-polio syndrome (chronic respiratory failure, wheelchair dependent), bipolar disorder, generalized anxiety disorder, major depressive disorder, hypertension, chronic hyponatremia, GERD who was brought to the ER from shelter on account of decreased
--- NOTE | 2023-12-13 10:31 | P.PNNP_ITS ---
Progress Note: A&P Assessment and Plan (1) Hyponatremia: Code(s): E87.1 - Hypo-osmolality and hyponatremia Status: Acute Assessment and Plan: * acute on chronic * baseline sodium runs ~ 129 - 136mmol/L since 2014 * during last hospitalization a few weeks ago, sodium was 130 - 134mmol/L * [facility] suggested her chronic hyponatremia was SIADH from her anti depressant/anxiety medicines +/- COPD * treated with fluid restriction, salt tabs, and lasix at that time * risk factors for low sodium: * SSRI use * lamotrignine use * lurasidone use (albeit it is rare) * lung disease * PPI use * evalutaion to date: * TSH okay * cortisol okay * CXR noted * SPEP/UPEP and serum/urine osmo pending * currently on fluid restriction, salt tabs and oral lasix * she was on salt tabs and fluid restriction prior to admission. * Right now her sodium level is up to 131 * Her potassium has been low but today is okay. * She is off the furosemide now. She is back on her home regimen. * So far the sodium is been doing okay (2) Altered mental status: Code(s): R41.82 - Altered mental status, unspecified Status: Acute Assessment and Plan: * clinically better at this time (and confirmed by family) * he is still very anxious * she also has a large amplitude tremor * The patient has been refusing medicines and so she has not had her usual dose of meds lately which is what the son is suspecting is causing these symptoms. he was saying that patient was in this kind of condition the last time she stopped taking medications regularly. * neurology is going to see the patient help out with this. (3) Chronic respiratory failure with hypoxia: Code(s): J96.11 - Chronic respiratory failure with hypoxia Status: Acute Assessment and Plan: * secondary to COPD and postpolio syndrome * on 2L supplemental oxygen at baseline (4) Essential (primary) hypertension: Code(s): I10 - Essential (primary) hypertension Status: Chronic Assessment and Plan: * fluctuating readings since admission * Systolic is ranging from 103-132 lately. * Will follow along on the current antihypertensive regimen. Subjective Date/time seen: 12/13/23 10:31 Interval history: patient feels okay. he refuses to let me listen to her lungs or her heart. Exam Narrative: General: WD/WN female in NAD patient would not allow me to examine her Heart/lungs/abdomen Extremities: no cyanosis or clubbing; no edema; + LLE splint in place Skin: no rash or subcu nodules Objective Data Vital Signs Vital Signs: Vital Signs - 24 hr 12/12/23 15:13 12/12/23 20:00 12/13/23 00:00 Temperature 98.6 F 97.3 F L Pulse Rate 100 97 Respiratory Rate 24 H 18 Blood Pressure 103/47 L 108/51 L Pulse Oximetry 95 98 Oxygen Delivery Room Air Oxygen Flow Rate 12/13/23 06:39 12/13/23 08:32 12/13/23 09:48 Temperature 97.4 F L Pulse Rate 94 Respiratory Rate 18 Blood Pressure 107/64 Pulse Oximetry 96 96 97 Oxygen Delivery Nasal Cannula Nasal Cannula Oxygen Flow Rate 2 2 Intake/Output Intake/Output: Intake & Output 12/09
--- NOTE | 2023-12-13 10:31 | PM.PNNEP ---
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 Right now her sodium level is up to 131 Her potassium has been low but today is okay. She is off the furosemide now. She is back on her home regimen. So far the sodium is been doing okay (2) Altered mental status: Code(s): R41.82 - Altered mental status, unspecified Status: Acute Assessment and Plan: clinically better at this time (and confirmed by family) he is still very anxious she also has a large amplitude tremor The patient has been refusing medicines and so she has not had her usual dose of meds lately which is what the son is suspecting is causing these symptoms. he was saying that patient was in this kind of condition the last time she stopped taking medications regularly. neurology is going to see the patient help out with this. (3) Chronic respiratory failure with hypoxia: Code(s): J96.11 - Chronic respiratory failure with hypoxia Status: Acute Assessment and Plan: secondary to COPD and postpolio syndrome on 2L supplemental oxygen at baseline (4) Essential (primary) hypertension: Code(s): I10 - Essential (primary) hypertension Status: Chronic Assessment and Plan: fluctuating readings since admission Systolic is ranging from 103-132 lately. Will follow along on the current antihypertensive regimen. Subjective Date/time seen: 12/13/23 10:31 Interval history: patient feels okay. he refuses to let me listen to her lungs or her heart. Exam Narrative: General: WD/WN female in NAD patient would not allow me to examine her Heart/lungs/abdomen Extremities: no cyanosis or clubbing; no edema; + LLE splint in place Skin: no rash or subcu nodules Objective Data Vital Signs Vital Signs: Vital Signs - 24 hr 12/12/23 15:13 12/12/23 20:00 12/13/23 00:00 Temperature 98.6 F 97.3 F L Pulse Rate 100 97 Respiratory Rate 24 H 18 Blood Pressure 103/47 L 108/51 L Pulse Oximetry 95 98 Oxygen Delivery Room Air Oxygen Flow Rate 12/13/23 06:39 12/13/23 08:32 12/13/23 09:48 Temperature 97.4 F L Pulse Rate 94 Respiratory Rate 18 Blood Pressure 107/64 Pulse Oximetry 96 96 97 Oxygen Delivery Nasal Cannula Nasal Cannula Oxygen Flow Rate 2 2 Intake/Output Intake/Output: Intake & Output 12/10/23 12/11/23 12/12/23 12/13/23 23:59 23:59 23:59 23:59 Intake Total 620 400 120 Output Total 200 2 Balance 420 400 118 Meds/Results Medications: Active Medications Generic Name Dose Route Start Last Admin Trade Name Freq PRN Reason Stop Dose Admin Divalproex Sodium 125 mg 12/07/23 17:00 12/13/23 08:[address] 125 Mg Tabec PO 125 mg BID LENA Administration Enoxaparin Sodium 40 mg 12/10/23 09:00 12/13/23 08:45 Enoxaparin 40 Mg/0.4 Ml Syringe SUB-Q Not Given DAILY LENA Lamotrigine 100 mg 12/07/23 21:00 12/13/23 08:37 Lamotrigine 100 Mg Tablet PO 100 mg Q12HR LENA Administration Lorazepam 1 mg 12/13/23 08:25 Lorazepam Inj (*Crx) 2 Mg/Ml Vial IV PUSH Q6H AZ
[2023-12-13 12:58] VITALS: BMI 10.0
[2023-12-13 15:00] VITALS: BP 110/70; PULSE 98; RESP 16; TEMP 36.6; O2SAT 98
[2023-12-14] VITALS: BP 112/76; PULSE 92; RESP 18; TEMP 36.8; O2SAT 96
[2023-12-14 05:35] LABS: Hematocrit 35.9 % (37.0-47.0); Hemoglobin 11.2 g/dL (12.0-15.0); Mean Corpuscular HGB Conc 31.2 g/dl (32-36); Mean Corpuscular Hemoglobin 27.3 pg (26-34); Mean Corpuscular Volume 87.3 fl (80-100); Platelet Count Result 436 k/mm3 (150-375); Red Blood Count 4.11 M/mm3 (4.2-5.4); Red Cell Distribution Width 14.2 % (11.5-14.5); White Blood Count 8.7 K/mm3 (4.5-10.0)
[2023-12-14 05:54] LABS: Alanine Aminotransferase 10 U/L (6-35); Albumin Level 3.6 g/dL (3.5-5.1); Alkaline Phosphatase 74 U/L (38-126); Anion Gap 7 mmol/L (4-12); Aspartate Amino Transferase 17 U/L (14-36); Bilirubin,Total 0.3 mg/dL (0.2-1.3); Blood Urea Nitrogen 18 mg/dL (7-17); Calcium 8.7 mg/dL (8.4-10.2); Carbon Dioxide 34 mmol/L (22-30); Chloride 92 mmol/L (98-107); Estimated CRCL calculation 77 ml/min; Estimated Glomerular Filt Rate > 60; Glucose 96 mg/dL (65-110); Phosphorus 3.5 mg/dL (2.5-4.5); Potassium 3.6 mmol/L (3.4-5.0); Sodium 133 mmol/L (137-145)
[2023-12-14 06:17] VITALS: BP 123/81; PULSE 91; RESP 18; TEMP 37; O2SAT 96
[2023-12-14 08:00] VITALS: O2SAT 95
[2023-12-14 08:08] VITALS: O2SAT 95
[2023-12-14] MEDS: DIVALPROEX SODIUM DR 125 MG TABEC PO (08:57)
[2023-12-14] MEDS: PANTOPRAZOLE 40 MG TABLET PO (08:57)
[2023-12-14] MEDS: SODIUM CHLORIDE 500 MG TABLET 1500 MG PO (08:57)
[2023-12-14] MEDS: [UNRECOGNIZED DRUG - OTHER] PO (08:57)
[2023-12-14] MEDS: lamoTRIgine 100 MG TABLET PO (08:57)
[2023-12-14] MEDS: LURASIDONE 60 MG PO (08:57)
[2023-12-14] MEDS: ENOXAPARIN 40 MG/0.4 ML SYRINGE SUB-Q (08:58)
--- NOTE | 2023-12-14 10:16 | PM.PNNEP ---
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 from her anti depressant/anxiety medicines +/- COPD treated with fluid restriction, salt tabs, and lasix at that time risk factors for low sodium: SSRI use lamotrignine use lurasidone use (albeit it is rare) lung disease PPI use evaluation to date: TSH okay cortisol okay CXR noted SPEP/UPEP and serum/urine osmo pending currently on fluid restriction and salt tabs; lasix discontinued sodium stable if not improving (2) Altered mental status: Code(s): R41.82 - Altered mental status, unspecified Status: Acute Assessment and Plan: continues to fluctuate appears very anxious at this time + tremor noted possibly due to refusing her medications. Neurology following (3) Chronic respiratory failure with hypoxia: Code(s): J96.11 - Chronic respiratory failure with hypoxia Status: Acute Assessment and Plan: secondary to COPD and postpolio syndrome on 2L supplemental oxygen at baseline (4) Essential (primary) hypertension: Code(s): I10 - Essential (primary) hypertension Status: Chronic Assessment and Plan: reasonable control at this time follow trend of hemodynamics Not much else to add from renal perspective -- will continue to follow from a distance. Subjective Date/time seen: 12/14/23 10:16 Interval history: Follow-up with acute on chronic hyponatremia. Chart reviewed since last seen -- sodium continues to improve with current interventions (fluid restriction + salt tabs; off diuretics); however, still with tremor and does not want to touched or bothered at the time of my visit; seems otherwise relatively stable. Exam Narrative: General: WD/WN female in NAD Extremities: no cyanosis or clubbing; no edema; + LLE splint in place Skin: intact Objective Data Vital Signs Vital Signs: Vital Signs Temp Pulse Resp BP Pulse Ox O2 Del Method O2 Flow Rate 12/14/23 08:00 95 Nasal Cannula 2 12/14/23 08:08 95 Nasal Cannula 2 12/14/23 06:17 98.6 F 91 18 123/81 96 12/14/23 00:00 98.2 F 92 18 112/76 96 12/13/23 15:00 97.8 F 98 16 110/70 98 Intake/Output Intake/Output: Intake & Output 12/11/23 12/12/23 12/13/23 12/14/23 23:59 23:59 23:59 23:59 Intake Total 400 120 540 220 Output Total 2 Balance 400 118 540 220 Meds/Results Medications: Active Medications Generic Name Dose Route Start Last Admin Trade Name Freq PRN Reason Stop Dose Admin Divalproex Sodium 125 mg 12/07/23 17:00 12/14/23 08:[address] 125 Mg Tabec PO 125 mg BID LENA Administration Enoxaparin Sodium 40 mg 12/10/23 09:00 12/14/23 08:58 Enoxaparin 40 Mg/0.4 Ml Syringe SUB-Q 40 mg DAILY LENA Administration Lamotrigine 100 mg 12/07/23 21:00 12/14/23 08:57 Lamotrigine 100 Mg Tablet PO 100 mg Q12HR LENA Administration Lorazepam 1 mg 12/13/23 08:25 Lorazepam Inj (*Crx) 2 Mg/Ml Vial IV PUSH Q6H PRN Anxiety Non-Formulary Medication 60 mg 12/08/23 09:00 12/14/23 08:57 Lurasidone PO 01/07/24 08:59 60 mg DAILY LENA Administration Pantoprazole Sodium 40 mg 12/09/23 09:35 12/14/23 08:57 Pantoprazole 40 Mg Tablet PO 40 mg QAM LENA Administration Sodium Chloride 1,500 mg 12/11/23 09:00 12/14/23 08:57 Sodium Chloride 500 Mg Tablet PO 1,500 mg BID LENA Administration Radiology Results: ITS Impressions Chest X-Ray 12/07/23 09:04 IMPRESSION: 1. Bilateral decreased lung volumes with opacities in
--- NOTE | 2023-12-14 10:16 | P.PNNP_ITS ---
Progress Note: A&P Assessment and Plan (1) Hyponatremia: Code(s): E87.1 - Hypo-osmolality and hyponatremia Status: Acute Assessment and Plan: * improving * acute on chronic * baseline sodium runs ~ 129 - 136mmol/L since 2014 * during last hospitalization a few weeks ago, sodium was 130 - 134mmol/L * previous evaluation of this issue (December 2019) suggested her chronic hyponatremia was SIADH from her anti depressant/anxiety medicines +/- COPD * treated with fluid restriction, salt tabs, and lasix at that time * risk factors for low sodium: * SSRI use * lamotrignine use * lurasidone use (albeit it is rare) * lung disease * PPI use * evaluation to date: * TSH okay * cortisol okay * CXR noted * SPEP/UPEP and serum/urine osmo pending * currently on fluid restriction and salt tabs; lasix discontinued * sodium stable if not improving (2) Altered mental status: Code(s): R41.82 - Altered mental status, unspecified Status: Acute Assessment and Plan: * continues to fluctuate * appears very anxious at this time * + tremor noted * possibly due to refusing her medications. * Neurology following (3) Chronic respiratory failure with hypoxia: Code(s): J96.11 - Chronic respiratory failure with hypoxia Status: Acute Assessment and Plan: * secondary to COPD and postpolio syndrome * on 2L supplemental oxygen at baseline (4) Essential (primary) hypertension: Code(s): I10 - Essential (primary) hypertension Status: Chronic Assessment and Plan: * reasonable control at this time * follow trend of hemodynamics Not much else to add from renal perspective -- will continue to follow from a distance. Subjective Date/time seen: 12/14/23 10:16 Interval history: Follow-up with acute on chronic hyponatremia. Chart reviewed since last seen -- sodium continues to improve with current interventions (fluid restriction + salt tabs; off diuretics); however, still with tremor and does not want to touched or bothered at the time of my visit; seems otherwise relatively stable. Exam Narrative: General: WD/WN female in NAD Extremities: no cyanosis or clubbing; no edema; + LLE splint in place Skin: intact Objective Data Vital Signs Vital Signs: Vital Signs Temp Pulse Resp BP Pulse Ox O2 Del Method O2 Flow Rate 12/14/23 08:00 95 Nasal Cannula 2 12/14/23 08:08 95 Nasal Cannula 2 12/14/23 06:17 98.6 F 91 18 123/81 96 12/14/23 00:00 98.2 F 92 18 112/76 96 12/13/23 15:00 97.8 F 98 16 110/70 98 Intake/Output Intake/Output: Intake & Output 12/11/23 12/12/23 12/13/23 12/14/23 23:59 23:59 23:59 23:59 Intake Total 400 120 540 220 Output Total 2 Balance 400 118 540 220 Meds/Results Medications: Active Medications Generic Name Dose Route Start Last Admin Trade Name Freq PRN Reason Stop Dose Admin Divalproex Sodium 125 mg 12/07/23 17:00 12/14/23 08:[address] 125 Mg Tabec PO 125 mg BID LENA Administration Enoxaparin Sodium 40 mg 12/10/23 09:00 12/14/23 08:58 Enoxaparin 40 Mg/0.4 Ml Syringe SUB
--- NOTE | 2023-12-14 11:22 | PCNFU ---
Nutrition Follow-Up Complete: Predicted suboptimal po intake related to varied appetite and intake of meals as evidenced by charted intake and medical history PO intake greater than 50% all meals - Not meet goal. Intakes 10-25% meals and 100% supplements. Continue with same goal Goal: Pt current nutrition is Regular diet. Fluid restriction 1500 ml/day. Ensure Compact BID for additional 220 kcal and 9 g protein each Nutrition recommendation: No new nutrition recommendations. Continue with current nutrition care plan and orders. Agree with orders Last recorded weight is 73.7 kg. Bowel Motility: +1 BM 12/13/23 Labs Reviewed: Hgb 11.2, Hct 35.9, Na 133, BUN 18, Cre 0.5 Meds Noted: Protonix Skin: No pressure injuries Additional Notes: Intakes remain poor. Pt is refusing meds and care also. Continue current orders. Agree with orders Monitor intake, wt, labs. Follow up in 5 days.
--- NOTE | 2023-12-14 12:00 | P.DS_ITS ---
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 - Postpolio syndrome Status: Acute (3) Essential (primary) hypertension: Code(s): I10 - Essential (primary) hypertension Status: Chronic (4) Hyperlipidemia: Qualifiers: Hyperlipidemia type: unspecified Qualified Code(s): E78.5 - Hyperlipidemia, unspecified Code(s): E78.5 - Hyperlipidemia, unspecified Status: Chronic (5) Altered mental status: Code(s): R41.82 - Altered mental status, unspecified Status: Acute (6) Acute encephalopathy: Code(s): G93.40 - Encephalopathy, unspecified Status: Acute (7) Major depressive disorder, single episode, unspecified: Qualifiers: Active/Remission status: remission status unspecified Qualified Code(s): F32.9 - Major depressive disorder, single episode, unspecified Code(s): F32.9 - Major depressive disorder, single episode, unspecified Status: Chronic (8) Generalized anxiety disorder: Code(s): F41.1 - Generalized anxiety disorder Status: Chronic (9) Tremors of nervous system: Code(s): R25.1 - Tremor, unspecified Status: Acute (10) Tardive dyskinesia: Code(s): G24.01 - Drug induced subacute dyskinesia Status: Acute Plan New onset Tremors/dyskinesia * Possible tardive dyskensia vs medication withdrawal * Patient was refusing medications the day prior * Patient with multiple recent hospitalizations due to manic states and placed on new psychiatric medications * Neurology consulted * 06/2023 was transferred to [facility] * was following at [place] 12/12 * Ativan PRN * still refusing medications Hyponatremia 2/2 drug induced vs lung disease-Improved * baseline sodium runs ~ 129 - 136mmol/L since 2019 * nephrology consulted * last hospitalization a few weeks ago, sodium was 130 - 134mmol/L * urine studies Negative * No PNA on imaging * dietitian consulted to evaluate oral intake * Nacl tab 1gm PO BID * Fluid restriction * Likely secondary to medications * lasix 20 mg BID 12/12 * Lasix D/C * NA131 * continue with NA tabs and fluid restriction AMS/metabolic encephalopathy-Improving * likely from Hyponatremia * hx of chronic hyponatremia * no acute findings on CT head * baseline patient is alert and oriented x3, and wheelchair bound HTN * titrate home meds * 108/50- monitor COPD /Postpolio syndrome with Chronic hypoxemic respiratory syndrome * 2 liter oxygen at baseline * currently on baseline oxygen * Continue home bronchodilators * patient is a former smoker 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
--- NOTE | 2023-12-14 12:00 | PM.DS ---
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 - Postpolio syndrome Status: Acute (3) Essential (primary) hypertension: Code(s): I10 - Essential (primary) hypertension Status: Chronic (4) Hyperlipidemia: Qualifiers: Hyperlipidemia type: unspecified Qualified Code(s): E78.5 - Hyperlipidemia, unspecified Code(s): E78.5 - Hyperlipidemia, unspecified Status: Chronic (5) Altered mental status: Code(s): R41.82 - Altered mental status, unspecified Status: Acute (6) Acute encephalopathy: Code(s): G93.40 - Encephalopathy, unspecified Status: Acute (7) Major depressive disorder, single episode, unspecified: Qualifiers: Active/Remission status: remission status unspecified Qualified Code(s): F32.9 - Major depressive disorder, single episode, unspecified Code(s): F32.9 - Major depressive disorder, single episode, unspecified Status: Chronic (8) Generalized anxiety disorder: Code(s): F41.1 - Generalized anxiety disorder Status: Chronic (9) Tremors of nervous system: Code(s): R25.1 - Tremor, unspecified Status: Acute (10) Tardive dyskinesia: Code(s): G24.01 - Drug induced subacute dyskinesia Status: Acute Plan New onset Tremors/dyskinesia Possible tardive dyskensia vs medication withdrawal Patient was refusing medications the day prior Patient with multiple recent hospitalizations due to manic states and placed on new psychiatric medications Neurology consulted 06/2023 was transferred to [facility] Psych was following at [place] 12/12 Ativan PRN still refusing medications Hyponatremia 2/2 drug induced vs lung disease-Improved baseline sodium runs ~ 129 - 136mmol/L since 2018 nephrology consulted last hospitalization a few weeks ago, sodium was 130 - 134mmol/L urine studies Negative No PNA on imaging dietitian consulted to evaluate oral intake Nacl tab 1gm PO BID Fluid restriction Likely secondary to medications lasix 20 mg BID 12/12 Lasix D/C NA131 continue with NA tabs and fluid restriction AMS/metabolic encephalopathy-Improving likely from Hyponatremia hx of chronic hyponatremia no acute findings on CT head baseline patient is alert and oriented x3, and wheelchair bound HTN titrate home meds 108/50- monitor COPD /Postpolio syndrome with Chronic hypoxemic respiratory syndrome 2 liter oxygen at baseline currently on baseline oxygen Continue home bronchodilators patient is a former smoker 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 with 7mm repulsion and moderate to severe central canal stenosis patient at Baseline continue monitoring Pain control if needed Bipolar disorder continue home meds Thoracic aorta aneurysm 4.[address] continue outpatient Imaging for follow-up Depression and anxiety continue home meds Disposition: Discharged back to [facility] DS: Summary Hospital Course Reason for hospitalization: Metabolic encephalopathy/ hyponatremia Hospital Course: This was a 73-year-old female with past medical history post-polio syndrome (chronic respiratory failure, wheelchair dependent), bipolar disorder, generalized anxiety disorder, major depressive disorder, hypertension, chronic hyponatremia, GERD who was brought to the ER from senior care on account of decreased responsiveness. Son was at the bedside and noted that he was informed by the NH that she was less alert this morning prompting transfer to the ER. he noted this always happens whenever her sodium goes low. Noted she alert and oriented x3 at baseline bu
[2023-12-14 12:52] LABS: Ceruloplasmin 33 mg/dL (14-48)
[2023-12-15 16:10] LABS: Methylmalonic Acid 75 nmol/L (69-390)
[2023-12-17 01:23] LABS: Vitamin B6 11.6 ng/mL (2.1-21.7)
[2023-12-17 05:13] LABS: Vitamin B1 8 nmol/L (8-30)
[2023-12-24 15:09] LABS: T3 Free 2.4 pg/mL
== END 2023-12-14 14:35 | DRG 640 ==
LOC: ANHED 07:26 → ANHIMU 12:10 → ANH2MED 12-09 17:22
PROVIDERS: General Practice; Internal Medicine; Internal Medicine Nephrology; Psychiatry & Neurology Neurology; Admitting Provider Internal Medicine; Emergency Provider Emergency Medicine; PCP Nurse Practitioner Family; Visit Provider Nurse Practitioner Family
DX: E87.1 Hypo-osmolality and hyponatremia (principal); G93.41 Metabolic encephalopathy; J96.11 Chronic respiratory failure with hypoxia; I10 Essential (primary) hypertension; J44.9 Chronic obstructive pulmonary disease, unspecified; K21.9 Gastro-esophageal reflux disease without esophagitis; E78.5 Hyperlipidemia, unspecified; I71.20 Thoracic aortic aneurysm, without rupture, unspecified; M48.04 Spinal stenosis, thoracic region; G14 Postpolio syndrome; G24.01 Drug induced subacute dyskinesia; F41.1 Generalized anxiety disorder; F31.9 Bipolar disorder, unspecified; Z20.822 Contact with and (suspected) exposure to COVID-19; Z99.3 Dependence on wheelchair; Z87.891 Personal history of nicotine dependence
CPT/HCPCS: 36415; 70450; 71045; 71250; 80048; 80053; 80069; 81001; 82306; 82390; 82533; 82570; 82607; 82746; 83605; 83735; 83921; 83935; 84155; 84156; 84165; 84166; 84207; 84295; 84300; 84425; 84436; 84443; 84480; 85025; 85027; 85610; 85730; 87040; 87637; 93005; 96361; 96374; 97161; 97530; 99285; A9270; G0378; J1650; J2060; J7030; J7131